=== PATIENT | female | born 1935 | race Caucasian/White ===

== ENCOUNTER 2023-07-03 12:50 | Emergency (ER) | payer OTHER, SELFPAY ==
[2023-07-03] VITALS (7 sets, daily range): BP systolic 152–203; BP diastolic 74–107
[2023-07-03] MEDS: ADACEL 0.5 ML IM (13:26)
--- NOTE | 2023-07-03 13:41 | ED.GENMED ---
History of Present Illness
<Krishna Lawrence MD - Last Filed: 07/04/23 15:09>
General
Chief Complaint: Fall
Source: patient
Exam Limitations: none
Time Seen by Provider: 07/03/23 13:10
Nursing documentation reviewed up to this point in time: agreed with
Travel History
Have you had any contact with someone who has COVID-19?: No
Do you have any symptoms of coronavirus? Fever > 100 degrees, chills, cough, shortness of breath, sore throat, loss of taste or smell, muscle aches, or headache?: No
History of Present Illness
History of Present Illness:
Patient with history of atrial fibrillation on Eliquis, presents to ED after falling backwards in her garden this morning, hitting her head against couple of rocks. Denies loss of consciousness. Denies dizziness. Denies nausea or vomiting.
Denies loss of sensation or weakness. Denies difficulty with speech or swallowing. Denies chest pain. Denies back pain, but she is complaining of right shoulder pain after the fall. Denies difficulty with walking.
Past History
<Krishna Lawrence MD - Last Filed: 07/04/23 15:09>
Past History
ED Past Medical History: Arrthythmia (atrial fibrillation), Fibromyalgia, GERD, HTN, Hypercholesterolemia, Hypothyroidism, Psychiatric (major depression), Other (essential thrombocytosis, GI bleed, irritable bowel disease, neuropathy, Anemia,
Migraines, Essential tremors, Dizziness, ) and Other (spinal stenosis, left wrist fracture,)
ED Past Surgical History: Cholecystectomy (2016), Gynecological (bilateral tubal ligation, hysterectomy, ), Orthopedic (ankle surgery following fracture and 2016), Urological (bladder lift 2007) and Other (bilateral cataract extractions, cyst
removed from finger 2015)
Social History
Tobacco: Former smoker
Alcohol: None
Drug: None
Personal:
Living: alone
Employment: Retired
Family History
Family History: Other (reviewed and Noncontributory)
Review of Systems
<Krishna Lawrence MD - Last Filed: 07/04/23 15:09>
Review of Systems
Allergies reviewed?: Yes
All Other Systems: ROS reviewed and negative except as documented in HPI and ROS
Constitutional: Reports no symptoms
Respiratory: Denies trouble breathing
Cardiac: Denies chest pain
ABD/GI: Denies nausea or vomiting
Musculoskeletal: Reports no symptoms; Denies neck pain
Skin: Reports other (scalp laceration)
Neurological: Reports headache; Denies dizzy, weakness or numbness
Phy Exam
<Krishna Lawrence MD - Last Filed: 07/04/23 15:09>
Physical Exam
Physical Exam:
Physical Exam
General: mild distress, not acutely ill. afebrile.
Head: an approx 5cm stellate shaped laceration over right scalp, without active bleeding.
Neck: supple. no meningeal signs.
Heart: s1/s2 regular rate and rhythm, no murmur. equal radial pulses.
Lungs: no acute respiratory distress. clear bilaterally
Abdomen: normal bowel sounds. not tender.
Neuro: alert and oriented. no focal neurological deficits
Skin: no rash
Psychiatric: well kept. interactive and cooperative
Extremities: mild right shoulder tenderness to palpation without deformity.
Course
<Krishna Lawrence MD - Last Filed: 07/04/23 15:09>
Orders/Labs/Results
Orders:
Orders
07/03/23 13:17
CT Head W/o Iv Contrast Urgent
Comment:
Reason For Exam: trauma to right side of head
Tetanus/Diphth/Acelpertussis [Adacel] 0.5 ml IM .ONCE ONE
07/03/23 13:51
Trauma Shoulder, Right CR [CR Shoulder, Trauma - Right] Urgent
Comment:
Reason For Exam: trauma
07/03/23 17:57
Metoprolol [Lopressor] 25 mg PO NOW STA
07/03/23 19:00
CT Head W/o Iv Contrast Urgent
Comment:
Reason For Exam: trauma
Vital Signs
Initial and Last Documented VS:
Initial Vital Signs
Temp Pulse Resp BP Pulse Ox
97.7 F 71 18 152/83 97
07/03/23 12:52 07/03/23 12:52 07/03/23 12:52 07/03/23 12:52 07/03/23 12:52
Last Documented Vital Signs
Temp Pulse Resp BP Pulse Ox
98.0 F 75 18 178/74 96
07/03/23 21:11 07/03/23 21:11 07/03/23 12:52 07/03/23 20:33 07/03/23 21:11
<Delmy Hutchinson PA-C - Last Filed: 07/05/23 18:08>
Orders/Labs/Results
Orders:
Orders
07/03/23 13:17
CT Head W/o Iv Contrast Urgent
Comment:
Reason For Exam: trauma to right side of head
Tetanus/Diphth/Acelpertussis [Adacel] 0.5 ml IM .ONCE ONE
07/03/23 13:51
Trauma Shoulder, Right CR [CR Shoulder, Trauma - Right] Urgent
Comment:
Reason For Exam: trauma
07/03/23 17:57
Metoprolol [Lopressor] 25 mg PO NOW STA
07/03/23 19:00
CT Head W/o Iv Contrast Urgent
Comment:
Reason For Exam: trauma
Vital Signs
Initial and Last Documented VS:
Initial Vital Signs
Temp Pulse Resp BP Pulse Ox
97.7 F 71 18 152/83 97
07/03/23 12:52 07/03/23 12:52 07/03/23 12:52 07/03/23 12:52 07/03/23 12:52
Last Documented Vital Signs
Temp Pulse Resp BP Pulse Ox
98.0 F 75 18 178/74 96
07/03/23 21:11 07/03/23 21:11 07/03/23 12:52 07/03/23 20:33 07/03/23 21:11
<Yvon Lorenz DO - Last Filed: 07/03/23 20:26>
Orders/Labs/Results
Orders:
Orders
07/03/23 13:17
CT Head W/o Iv Contrast Urgent
Comment:
Reason For Exam: trauma to right side of head
Tetanus/Diphth/Acelpertussis [Adacel] 0.5 ml IM .ONCE ONE
07/03/23 13:51
Trauma Shoulder, Right CR [CR Shoulder, Trauma - Right] Urgent
Comment:
Reason For Exam: trauma
07/03/23 17:57
Metoprolol [Lopressor] 25 mg PO NOW STA
07/03/23 19:00
CT Head W/o Iv Contrast Urgent
Comment:
Reason For Exam: trauma
Vital Signs
Initial and Last Documented VS:
Initial Vital Signs
Temp Pulse Resp BP Pulse Ox
97.7 F 71 18 152/83 97
07/03/23 12:52 07/03/23 12:52 07/03/23 12:52 07/03/23 12:52 07/03/23 12:52
Last Documented Vital Signs
Temp Pulse Resp BP Pulse Ox
98.0 F 75 18 178/74 96
07/03/23 21:11 07/03/23 21:11 07/03/23 12:52 07/03/23 20:33 07/03/23 21:11
<Delmy Hutchinson PA-C - Last Filed: 07/05/23 18:08>
Laceration Closure
Posterior Scalp:
Status of Wound: clean
Description of Wound Edges: sharp
Preparation: cleaned with saline and cleaned with Betadine
Anesthesia: 1% Lidocaine with epi and added Na Bicarb to local
Revision/Debridement: routine- no revision
Wound exploration: explored to base- no FB
Type of Closure: interrupted sutures
Skin Closure Material: 5-0 prolene
Number of sutures: 5
<Krishna Lawrence MD - Last Filed: 07/04/23 15:09>
*Critical Care Note
Total Time (30-74mins, 75-104mins- exclusive of procedures): Not Applicable
<Yvon Lorenz DO - Last Filed: 07/03/23 20:26>
Update Note
Update Note:
Repeat CT is unremarkable. Patient doing well. Patient had scalp repaired.
ED Attending Note
<Krishna Lawrence MD - Last Filed: 07/04/23 15:09>
-
Portions of this chart may have been created with voice recognition software.� Occasional wrong word or��sound alike� substitutions may have occurred due to the inherent limitations of voice recognition software.
Discharge Plan
Departure
Patient Disposition: Home (Routine Discharge)
Date of Disposition: 07/03/23
Time of Disposition: 20:24
Patient with high blood pressure during this ER visit?: Yes
Condition: Good
Covid-19: Not Applicable
Discharge Problem:
Laceration of scalp, Head injury, acute
Instructions: Head Injury in Adults (DC), Laceration Repair With Stitches (DC), Preventing falls in adults, BLOOD PRESSURE
Prescriptions:
No Action
cholecalciferol (vitamin D3) 1,000 UNITS tablet
1,000 units PO DAILY
cyanocobalamin (vitamin B-12) 500 MCG tablet, sublingual
500 mcg sublingual .TUESTHURS
hydroxyurea 500 MG capsule
1,000 mg PO DAILY
levothyroxine 75 MCG tablet
75 mcg PO DAILY
duloxetine 30 MG capsule,delayed release(DR/EC)
30 mg PO DAILY
metoprolol succinate [Toprol XL] 25 MG tablet extended release 24 hr
25 mg PO HS
lisinopril 20 MG tablet
20 mg PO DAILY Qty: 30 0RF
amlodipine 2.5 mg Tablet
2.5 mg PO DAILY
Referrals:
Abel Brian MD [Family Provider] - Follow up in 5-7 days
Activity Restrictions/Additional Instructions:
Keep area clean with soap and water. You may bathe and shower. Continue present medications and make sure to follow-up with your family physician both to have the sutures removed and to have your blood pressure rechecked. Continue present
medications and therapy.
Interventions
Interventions:
*Risk Screen - Suicide Last Done: 07/03/23 13:43
*General Assessment Last Done: 07/03/23 12:52
*Neglect/Abuse Screening Last Done: 07/03/23 13:43
*ED COVID-19 Vaccine History Last Done: 07/03/23 12:52
*Nursing Disposition Last Done: 07/03/23 21:11
ED-Musculoskeletal Assessment Last Done: 07/03/23 13:37
ED- Neurological Assessment Last Done: 07/03/23 13:37
ED-Skin Assessment Last Done: 07/03/23 13:37
Discharge Date and Time
Discharge Date/Time: 07/03/23 21:14
--- NOTE | 2023-07-03 15:42 | EDRN ---
Wound cleansed and sutures applied by Evangelina MOYER.
[2023-07-03] MEDS: LOPRESSOR 25 MG PO (18:10)
== END 2023-07-03 21:14 | disposition home or self-care (01) ==
LOC: EMR 12:50
PROVIDERS: EMERGENCY PHYSICIAN Emergency Medicine; FAMILY PHYSICIAN Internal Medicine Geriatric Medicine
DX: S01.01XA Laceration without foreign body of scalp, initial encounter (principal); S09.90XA Unspecified injury of head, initial encounter; W19.XXXA Unspecified fall, initial encounter; Z23 Encounter for immunization; I48.91 Unspecified atrial fibrillation; M79.7 Fibromyalgia; K21.9 Gastro-esophageal reflux disease without esophagitis; I10 Essential (primary) hypertension; E78.00 Pure hypercholesterolemia, unspecified; E03.9 Hypothyroidism, unspecified; G25.0 Essential tremor; K58.9 Irritable bowel syndrome, unspecified; Z79.01 Long term (current) use of anticoagulants; Z87.891 Personal history of nicotine dependence; Z90.49 Acquired absence of other specified parts of digestive tract; Z90.710 Acquired absence of both cervix and uterus
CPT/HCPCS: 99284; 90471; 70450; 73030; 90715

== ENCOUNTER → 2023-07-21 13:12 | Outpatient (REF) | payer OTHER, SELFPAY ==
[2023-07-21 13:45] LABS: % Basophils 1.9 % (0-2); % Eosinophils 0.8 % (0-6); % Immature Granulocytes 8.9 % (0-0.5); % Lymphocytes 10.6 % (20.5-51.1); % Neutrophils 69.8 % (42.2-75.2); Absolute Basophils 0.2 10^3/uL (0-0.2); Absolute Eosinophils 0.1 10^3/uL (0-0.7); Absolute Immature Granulocytes 0.9 10^3/uL (0-0.05); Absolute Monocytes 0.8 10^3/uL (0.1-0.6); Absolute Neutrophils 6.7 10^3/uL (1.4-6.5); Hematocrit 34.2 % (37.0-47.0); Hemoglobin 10.6 g/dL (12.0-16.0); Mean Corpuscular Hgb 34.3 pg (27.0-31.0); Mean Corpuscular Volume 110.7 fL (81.0-99.0); Mean Platelet Volume 9.8 fL (7.4-10.4); Platelet Count 508 10^3/uL (130-400); Red Blood Cell Count 3.09 10^6/uL (4.20-5.40); Red Cell Dist. Width 17.7 % (11.5-14.5); White Blood Cell Count 9.6 10^3/uL (4.8-10.8)
[2023-07-21 15:14] LABS: Iron 82 ug/dl (37-170)
[2023-07-21 15:24] LABS: Percent Saturation 26 % (20-50); Total Iron Binding Capacity 304 ug/dl (265-497)
== END ==
LOC: OIDL 13:12
PROVIDERS: ATTENDING PHYSICIAN Internal Medicine Hematology & Oncology; FAMILY PHYSICIAN Internal Medicine Geriatric Medicine
DX: D47.3 Essential (hemorrhagic) thrombocythemia (principal); D64.81 Anemia due to antineoplastic chemotherapy
CPT/HCPCS: 36415; 82728; 83540; 83550; 85025

== ENCOUNTER → 2023-08-18 13:04 | Outpatient (REF) | payer OTHER, SELFPAY ==
[2023-08-18 13:27] LABS: % Eosinophils 0.9 % (0-6); % Immature Granulocytes 10.7 % (0-0.5); % Lymphocytes 11.2 % (20.5-51.1); % Monocytes 5.9 % (1.7-9.3); % Neutrophils 69.3 % (42.2-75.2); Absolute Basophils 0.2 10^3/uL (0-0.2); Absolute Eosinophils 0.1 10^3/uL (0-0.7); Absolute Immature Granulocytes 1.2 10^3/uL (0-0.05); Absolute Lymphocytes 1.3 10^3/uL (1.2-3.4); Absolute Monocytes 0.7 10^3/uL (0.1-0.6); Absolute Neutrophils 7.8 10^3/uL (1.4-6.5); Hematocrit 32.7 % (37.0-47.0); Hemoglobin 10.2 g/dL (12.0-16.0); Mean Corp Hgb Conc. 31.2 g/dL (33.0-37.0); Mean Corpuscular Hgb 34.3 pg (27.0-31.0); Mean Corpuscular Volume 110.1 fL (81.0-99.0); Mean Platelet Volume 9.9 fL (7.4-10.4); Platelet Count 555 10^3/uL (130-400); Red Blood Cell Count 2.97 10^6/uL (4.20-5.40); Red Cell Dist. Width 16.9 % (11.5-14.5); White Blood Cell Count 11.3 10^3/uL (4.8-10.8)
== END ==
LOC: OIDL 13:04
PROVIDERS: ATTENDING PHYSICIAN Internal Medicine Hematology & Oncology; FAMILY PHYSICIAN Internal Medicine Geriatric Medicine
DX: D47.3 Essential (hemorrhagic) thrombocythemia (principal)
CPT/HCPCS: 36415; 85025

== ENCOUNTER → 2023-09-06 14:21 | Outpatient (REF) | payer OTHER, SELFPAY | LOC: WDC 14:21 | PROVIDERS: ATTENDING PHYSICIAN Internal Medicine Geriatric Medicine | DX: Z12.31 Encounter for screening mammogram for malignant neoplasm of breast (principal) | CPT/HCPCS: 77063; 77067 ==

== ENCOUNTER → 2023-09-15 13:01 | Outpatient (REF) | payer OTHER, SELFPAY ==
[2023-09-15 13:18] LABS: % Basophils 1.7 % (0-2); % Eosinophils 0.9 % (0-6); % Immature Granulocytes 9.6 % (0-0.5); % Lymphocytes 10.5 % (20.5-51.1); % Monocytes 5.6 % (1.7-9.3); % Neutrophils 71.7 % (42.2-75.2); Absolute Basophils 0.2 10^3/uL (0-0.2); Absolute Eosinophils 0.1 10^3/uL (0-0.7); Absolute Lymphocytes 1.1 10^3/uL (1.2-3.4); Absolute Monocytes 0.6 10^3/uL (0.1-0.6); Absolute Neutrophils 7.3 10^3/uL (1.4-6.5); Hematocrit 32.4 % (37.0-47.0); Hemoglobin 10.2 g/dL (12.0-16.0); Mean Corp Hgb Conc. 31.5 g/dL (33.0-37.0); Mean Platelet Volume 9.8 fL (7.4-10.4); Platelet Count 456 10^3/uL (130-400); Red Cell Dist. Width 17.5 % (11.5-14.5); White Blood Cell Count 10.1 10^3/uL (4.8-10.8)
== END ==
LOC: OIDL 13:01
PROVIDERS: ATTENDING PHYSICIAN Internal Medicine Hematology & Oncology
DX: D47.3 Essential (hemorrhagic) thrombocythemia (principal)
CPT/HCPCS: 36415; 85025

== ENCOUNTER → 2023-09-16 12:37 | Emergency (ER) | payer OTHER, SELFPAY ==
[2023-09-16 12:48] VITALS: BP 189/73
== END | disposition left against medical advice (07) ==
LOC: EMR 12:37
PROVIDERS: EMERGENCY PHYSICIAN Student in an Organized Health Care Education/Training Program
DX: S09.93XA Unspecified injury of face, initial encounter (principal); W01.0XXA Fall on same level from slipping, tripping and stumbling without subsequent striking against object, initial encounter
CPT/HCPCS: 70450; 72125

== ENCOUNTER → 2023-09-28 11:03 | Outpatient (REF) | payer OTHER, SELFPAY ==
[2023-09-28 13:01] LABS: Blood Urea Nitrogen 16 mg/dl (7-17)
== END ==
LOC: RAD 11:03
PROVIDERS: ATTENDING PHYSICIAN Nurse Practitioner Family
DX: R91.1 Solitary pulmonary nodule (principal)
CPT/HCPCS: 36415; 71260; 82565; 84520; Q9967

== ENCOUNTER → 2023-10-13 13:12 | Outpatient (REF) | payer OTHER, SELFPAY ==
[2023-10-13 13:20] LABS: % Basophils 1.5 % (0-2); % Eosinophils 0.7 % (0-6); % Immature Granulocytes 9.6 % (0-0.5); % Lymphocytes 9.8 % (20.5-51.1); % Neutrophils 70.4 % (42.2-75.2); Absolute Basophils 0.2 10^3/uL (0-0.2); Absolute Eosinophils 0.1 10^3/uL (0-0.7); Absolute Immature Granulocytes 1.1 10^3/uL (0-0.05); Absolute Lymphocytes 1.1 10^3/uL (1.2-3.4); Absolute Monocytes 0.9 10^3/uL (0.1-0.6); Absolute Neutrophils 8.2 10^3/uL (1.4-6.5); Hematocrit 32.5 % (37.0-47.0); Hemoglobin 10.2 g/dL (12.0-16.0); Mean Corp Hgb Conc. 31.4 g/dL (33.0-37.0); Mean Corpuscular Hgb 33.6 pg (27.0-31.0); Mean Corpuscular Volume 106.9 fL (81.0-99.0); Mean Platelet Volume 9.7 fL (7.4-10.4); Platelet Count 553 10^3/uL (130-400); Red Blood Cell Count 3.04 10^6/uL (4.20-5.40); Red Cell Dist. Width 17.1 % (11.5-14.5); White Blood Cell Count 11.7 10^3/uL (4.8-10.8)
== END ==
LOC: OIDL 13:12
PROVIDERS: ATTENDING PHYSICIAN Internal Medicine Hematology & Oncology
DX: D47.3 Essential (hemorrhagic) thrombocythemia (principal)
CPT/HCPCS: 36415; 85025

== ENCOUNTER → 2023-11-17 12:57 | Outpatient (REF) | payer OTHER, SELFPAY ==
[2023-11-17 13:10] LABS: % Basophils 1.5 % (0-2); % Eosinophils 0.8 % (0-6); % Immature Granulocytes 10.6 % (0-0.5); % Lymphocytes 9.6 % (20.5-51.1); % Monocytes 7.4 % (1.7-9.3); % Neutrophils 70.1 % (42.2-75.2); Absolute Basophils 0.2 10^3/uL (0-0.2); Absolute Eosinophils 0.1 10^3/uL (0-0.7); Absolute Immature Granulocytes 1.1 10^3/uL (0-0.05); Absolute Monocytes 0.8 10^3/uL (0.1-0.6); Absolute Neutrophils 7.4 10^3/uL (1.4-6.5); Hematocrit 33.6 % (37.0-47.0); Hemoglobin 10.3 g/dL (12.0-16.0); Mean Corp Hgb Conc. 30.7 g/dL (33.0-37.0); Mean Corpuscular Hgb 32.3 pg (27.0-31.0); Mean Corpuscular Volume 105.3 fL (81.0-99.0); Mean Platelet Volume 9.9 fL (7.4-10.4); Platelet Count 474 10^3/uL (130-400); Red Blood Cell Count 3.19 10^6/uL (4.20-5.40); Red Cell Dist. Width 17.8 % (11.5-14.5); White Blood Cell Count 10.6 10^3/uL (4.8-10.8)
== END ==
LOC: OIDL 12:57
PROVIDERS: ATTENDING PHYSICIAN Internal Medicine Hematology & Oncology
DX: D47.3 Essential (hemorrhagic) thrombocythemia (principal)
CPT/HCPCS: 36415; 85025

== ENCOUNTER → 2023-12-15 12:52 | Outpatient (REF) | payer OTHER, SELFPAY ==
[2023-12-15 13:06] LABS: % Basophils 1.8 % (0-2); % Eosinophils 0.7 % (0-6); % Immature Granulocytes 10.9 % (0-0.5); % Lymphocytes 7.6 % (20.5-51.1); % Monocytes 6.6 % (1.7-9.3); % Neutrophils 72.4 % (42.2-75.2); Absolute Basophils 0.2 10^3/uL (0-0.2); Absolute Eosinophils 0.1 10^3/uL (0-0.7); Absolute Immature Granulocytes 1.2 10^3/uL (0-0.05); Absolute Lymphocytes 0.9 10^3/uL (1.2-3.4); Absolute Monocytes 0.7 10^3/uL (0.1-0.6); Absolute Neutrophils 8.1 10^3/uL (1.4-6.5); Hematocrit 31.3 % (37.0-47.0); Hemoglobin 9.7 g/dL (12.0-16.0); Mean Corpuscular Hgb 32.8 pg (27.0-31.0); Mean Corpuscular Volume 105.7 fL (81.0-99.0); Mean Platelet Volume 9.8 fL (7.4-10.4); Platelet Count 488 10^3/uL (130-400); Red Blood Cell Count 2.96 10^6/uL (4.20-5.40); Red Cell Dist. Width 18.5 % (11.5-14.5); White Blood Cell Count 11.1 10^3/uL (4.8-10.8)
== END ==
LOC: OIDL 12:52
PROVIDERS: ATTENDING PHYSICIAN Internal Medicine Hematology & Oncology; FAMILY PHYSICIAN Internal Medicine Geriatric Medicine
DX: D47.3 Essential (hemorrhagic) thrombocythemia (principal)
CPT/HCPCS: 36415; 85025

== ENCOUNTER → 2024-01-12 12:53 | Outpatient (REF) | payer OTHER, SELFPAY ==
[2024-01-12 13:17] LABS: % Basophils 1.5 % (0-2); % Eosinophils 0.6 % (0-6); % Immature Granulocytes 10.2 % (0-0.5); % Lymphocytes 11.1 % (20.5-51.1); % Monocytes 5.4 % (1.7-9.3); % Neutrophils 71.2 % (42.2-75.2); Absolute Basophils 0.1 10^3/uL (0-0.2); Absolute Eosinophils 0.1 10^3/uL (0-0.7); Absolute Lymphocytes 1.1 10^3/uL (1.2-3.4); Absolute Monocytes 0.5 10^3/uL (0.1-0.6); Absolute Neutrophils 6.8 10^3/uL (1.4-6.5); Hematocrit 30.6 % (37.0-47.0); Hemoglobin 9.5 g/dL (12.0-16.0); Mean Corpuscular Hgb 32.9 pg (27.0-31.0); Mean Corpuscular Volume 105.9 fL (81.0-99.0); Platelet Count 495 10^3/uL (130-400); Red Blood Cell Count 2.89 10^6/uL (4.20-5.40); Red Cell Dist. Width 18.4 % (11.5-14.5); White Blood Cell Count 9.5 10^3/uL (4.8-10.8)
== END ==
LOC: OIDL 12:53
PROVIDERS: ATTENDING PHYSICIAN Internal Medicine Hematology & Oncology; FAMILY PHYSICIAN Internal Medicine Geriatric Medicine
DX: D47.3 Essential (hemorrhagic) thrombocythemia (principal)
CPT/HCPCS: 36415; 85025

== ENCOUNTER → 2024-02-09 13:12 | Outpatient (REF) | payer OTHER, SELFPAY ==
[2024-02-09 13:25] LABS: % Basophils 1.9 % (0-2); % Eosinophils 0.7 % (0-6); % Immature Granulocytes 10.2 % (0-0.5); % Lymphocytes 9.7 % (20.5-51.1); % Monocytes 7.5 % (1.7-9.3); Absolute Basophils 0.2 10^3/uL (0-0.2); Absolute Eosinophils 0.1 10^3/uL (0-0.7); Absolute Immature Granulocytes 1.1 10^3/uL (0-0.05); Absolute Monocytes 0.8 10^3/uL (0.1-0.6); Absolute Neutrophils 7.5 10^3/uL (1.4-6.5); Hematocrit 29.7 % (37.0-47.0); Hemoglobin 9.2 g/dL (12.0-16.0); Mean Corpuscular Hgb 32.7 pg (27.0-31.0); Mean Corpuscular Volume 105.7 fL (81.0-99.0); Platelet Count 531 10^3/uL (130-400); Red Blood Cell Count 2.81 10^6/uL (4.20-5.40); Red Cell Dist. Width 18.4 % (11.5-14.5); White Blood Cell Count 10.7 10^3/uL (4.8-10.8)
== END ==
LOC: OIDL 13:12
PROVIDERS: ATTENDING PHYSICIAN Internal Medicine Hematology & Oncology; PRIMARYCARE PHYSICIAN Internal Medicine Geriatric Medicine
DX: D47.3 Essential (hemorrhagic) thrombocythemia (principal)
CPT/HCPCS: 36415; 85025

== ENCOUNTER → 2024-02-14 13:01 | Outpatient (REF) | payer OTHER, SELFPAY ==
[2024-02-14 13:20] LABS: % Basophils 1.7 % (0-2); % Eosinophils 0.6 % (0-6); % Immature Granulocytes 10.9 % (0-0.5); % Lymphocytes 7.5 % (20.5-51.1); % Monocytes 7.4 % (1.7-9.3); % Neutrophils 71.9 % (42.2-75.2); Absolute Basophils 0.2 10^3/uL (0-0.2); Absolute Eosinophils 0.1 10^3/uL (0-0.7); Absolute Immature Granulocytes 1.1 10^3/uL (0-0.05); Absolute Lymphocytes 0.8 10^3/uL (1.2-3.4); Absolute Monocytes 0.8 10^3/uL (0.1-0.6); Absolute Neutrophils 7.4 10^3/uL (1.4-6.5); Hematocrit 29.5 % (37.0-47.0); Mean Corp Hgb Conc. 30.5 g/dL (33.0-37.0); Mean Corpuscular Hgb 32.1 pg (27.0-31.0); Mean Corpuscular Volume 105.4 fL (81.0-99.0); Mean Platelet Volume 9.6 fL (7.4-10.4); Platelet Count 524 10^3/uL (130-400); Red Cell Dist. Width 18.4 % (11.5-14.5); White Blood Cell Count 10.3 10^3/uL (4.8-10.8)
[2024-02-14 16:43] LABS: Iron 57 ug/dl (37-170)
[2024-02-14 16:52] LABS: Percent Saturation 17 % (20-50); Total Iron Binding Capacity 329 ug/dl (265-497)
[2024-02-14 17:17] LABS: Ferritin 72.1 ng/ml (11.1-264.0)
== END ==
LOC: OIDL 13:01
PROVIDERS: ATTENDING PHYSICIAN Internal Medicine Hematology & Oncology
DX: D47.3 Essential (hemorrhagic) thrombocythemia (principal); D64.81 Anemia due to antineoplastic chemotherapy; D50.9 Iron deficiency anemia, unspecified
CPT/HCPCS: 36415; 82728; 83540; 83550; 85025

== ENCOUNTER → 2024-03-08 13:09 | Outpatient (REF) | payer OTHER, SELFPAY ==
[2024-03-08 13:45] LABS: % Basophils 1.9 % (0-2); % Eosinophils 0.7 % (0-6); % Immature Granulocytes 11.5 % (0-0.5); % Lymphocytes 8.7 % (20.5-51.1); % Monocytes 7.4 % (1.7-9.3); % Neutrophils 69.8 % (42.2-75.2); Absolute Basophils 0.2 10^3/uL (0-0.2); Absolute Eosinophils 0.1 10^3/uL (0-0.7); Absolute Immature Granulocytes 1.4 10^3/uL (0-0.05); Absolute Monocytes 0.9 10^3/uL (0.1-0.6); Absolute Neutrophils 8.2 10^3/uL (1.4-6.5); Hematocrit 29.4 % (37.0-47.0); Mean Corp Hgb Conc. 30.6 g/dL (33.0-37.0); Mean Corpuscular Hgb 31.8 pg (27.0-31.0); Mean Corpuscular Volume 103.9 fL (81.0-99.0); Mean Platelet Volume 10.1 fL (7.4-10.4); Platelet Count 584 10^3/uL (130-400); Red Blood Cell Count 2.83 10^6/uL (4.20-5.40); Red Cell Dist. Width 18.5 % (11.5-14.5); White Blood Cell Count 11.8 10^3/uL (4.8-10.8)
[2024-03-08 15:30] LABS: Iron 53 ug/dl (37-170)
[2024-03-08 15:42] LABS: Percent Saturation 15 % (20-50); Total Iron Binding Capacity 338 ug/dl (265-497)
[2024-03-08 16:07] LABS: Ferritin 50.5 ng/ml (11.1-264.0)
== END ==
LOC: OIDL 13:09
PROVIDERS: ATTENDING PHYSICIAN Internal Medicine Hematology & Oncology
DX: D47.3 Essential (hemorrhagic) thrombocythemia (principal)
CPT/HCPCS: 36415; 82728; 83540; 83550; 85025

== ENCOUNTER → 2024-04-05 13:00 | Outpatient (REF) | payer OTHER, SELFPAY ==
[2024-04-05 13:19] LABS: % Basophils 1.6 % (0-2); % Eosinophils 0.6 % (0-6); % Immature Granulocytes 10.5 % (0-0.5); % Lymphocytes 9.5 % (20.5-51.1); % Monocytes 7.1 % (1.7-9.3); % Neutrophils 70.7 % (42.2-75.2); Absolute Basophils 0.2 10^3/uL (0-0.2); Absolute Eosinophils 0.1 10^3/uL (0-0.7); Absolute Immature Granulocytes 1.3 10^3/uL (0-0.05); Absolute Lymphocytes 1.2 10^3/uL (1.2-3.4); Absolute Monocytes 0.9 10^3/uL (0.1-0.6); Hematocrit 27.2 % (37.0-47.0); Hemoglobin 8.4 g/dL (12.0-16.0); Mean Corp Hgb Conc. 30.9 g/dL (33.0-37.0); Mean Corpuscular Hgb 31.7 pg (27.0-31.0); Mean Corpuscular Volume 102.6 fL (81.0-99.0); Mean Platelet Volume 9.7 fL (7.4-10.4); Platelet Count 505 10^3/uL (130-400); Red Blood Cell Count 2.65 10^6/uL (4.20-5.40); Red Cell Dist. Width 18.4 % (11.5-14.5); White Blood Cell Count 12.7 10^3/uL (4.8-10.8)
== END ==
LOC: OIDL 13:00
PROVIDERS: ATTENDING PHYSICIAN Internal Medicine Hematology & Oncology
DX: D47.3 Essential (hemorrhagic) thrombocythemia (principal)
CPT/HCPCS: 36415; 85025

== ENCOUNTER → 2024-05-03 12:38 | Outpatient (REF) | payer OTHER, SELFPAY ==
[2024-05-03 13:46] LABS: Hematocrit 28.1 % (37.0-47.0); Hemoglobin 8.4 g/dL (12.0-16.0); Mean Corp Hgb Conc. 29.9 g/dL (33.0-37.0); Mean Corpuscular Hgb 30.7 pg (27.0-31.0); Mean Corpuscular Volume 102.6 fL (81.0-99.0); Platelet Count 584 10^3/uL (130-400); Red Blood Cell Count 2.74 10^6/uL (4.20-5.40); Red Cell Dist. Width 18.9 % (11.5-14.5); White Blood Cell Count 12.2 10^3/uL (4.8-10.8)
[2024-05-03 15:20] LABS: Absolute Neutrophils -Man Diff 9.3 10^3/uL (1.4-6.5); Band Neutrophils 2 % (0-3); Eosinophils 1 % (0-6); Lymphocytes 5 % (20-51); Metamyelocytes 4 % (-); Monocytes 8 % (2-9); Myelocytes 5 % (-); Segmented Neutrophils 75 % (42-75)
[2024-05-03 15:21] LABS: Anisocytosis 1+; Normal RBC Morphology No; Platelets Checked Yes; Polychromasia Slight; Total Cells Counted 100
== END ==
LOC: OIDL 12:38
PROVIDERS: ATTENDING PHYSICIAN Internal Medicine Hematology & Oncology
DX: D47.3 Essential (hemorrhagic) thrombocythemia (principal)
CPT/HCPCS: 36415; 85025

== ENCOUNTER → 2024-05-31 13:01 | Outpatient (REF) | payer OTHER, SELFPAY ==
[2024-05-31 13:34] LABS: % Basophils 1.7 % (0-2); % Eosinophils 0.6 % (0-6); % Immature Granulocytes 7.2 % (0-0.5); % Lymphocytes 11.7 % (20.5-51.1); % Monocytes 5.3 % (1.7-9.3); % Neutrophils 73.5 % (42.2-75.2); Absolute Basophils 0.2 10^3/uL (0-0.2); Absolute Eosinophils 0.1 10^3/uL (0-0.7); Absolute Immature Granulocytes 0.7 10^3/uL (0-0.05); Absolute Lymphocytes 1.1 10^3/uL (1.2-3.4); Absolute Monocytes 0.5 10^3/uL (0.1-0.6); Absolute Neutrophils 6.8 10^3/uL (1.4-6.5); Hematocrit 27.9 % (37.0-47.0); Hemoglobin 8.4 g/dL (12.0-16.0); Mean Corp Hgb Conc. 30.1 g/dL (33.0-37.0); Mean Corpuscular Hgb 30.3 pg (27.0-31.0); Mean Corpuscular Volume 100.7 fL (81.0-99.0); Mean Platelet Volume 11.3 fL (7.4-10.4); Platelet Count 362 10^3/uL (130-400); Red Blood Cell Count 2.77 10^6/uL (4.20-5.40); Red Cell Dist. Width 18.7 % (11.5-14.5); White Blood Cell Count 9.3 10^3/uL (4.8-10.8)
== END ==
LOC: OIDL 13:01
PROVIDERS: ATTENDING PHYSICIAN Internal Medicine Hematology & Oncology; FAMILY PHYSICIAN Internal Medicine Geriatric Medicine
DX: D47.3 Essential (hemorrhagic) thrombocythemia (principal)
CPT/HCPCS: 36415; 85025

== ENCOUNTER → 2024-07-06 13:50 | Outpatient (REF) | payer OTHER, SELFPAY ==
[2024-07-06 14:00] LABS: % Basophils 1.6 % (0-2); % Eosinophils 0.6 % (0-6); % Immature Granulocytes 7.8 % (0-0.5); % Lymphocytes 11.2 % (20.5-51.1); % Monocytes 7.2 % (1.7-9.3); % Neutrophils 71.6 % (42.2-75.2); Absolute Basophils 0.2 10^3/uL (0-0.2); Absolute Eosinophils 0.1 10^3/uL (0-0.7); Absolute Immature Granulocytes 0.9 10^3/uL (0-0.05); Absolute Lymphocytes 1.3 10^3/uL (1.2-3.4); Absolute Monocytes 0.8 10^3/uL (0.1-0.6); Absolute Neutrophils 8.4 10^3/uL (1.4-6.5); Hematocrit 27.5 % (37.0-47.0); Hemoglobin 8.2 g/dL (12.0-16.0); Mean Corp Hgb Conc. 29.8 g/dL (33.0-37.0); Mean Corpuscular Volume 100.7 fL (81.0-99.0); Mean Platelet Volume 9.6 fL (7.4-10.4); Platelet Count 588 10^3/uL (130-400); Red Blood Cell Count 2.73 10^6/uL (4.20-5.40); Red Cell Dist. Width 19.6 % (11.5-14.5); White Blood Cell Count 11.7 10^3/uL (4.8-10.8)
[2024-07-06 16:04] LABS: Iron 44 ug/dl (37-170)
[2024-07-06 16:14] LABS: Percent Saturation 11 % (20-50); Total Iron Binding Capacity 378 ug/dl (265-497)
[2024-07-06 16:40] LABS: Ferritin 16.6 ng/ml (11.1-264.0)
== END ==
LOC: OIDL 13:50
PROVIDERS: ATTENDING PHYSICIAN Internal Medicine Hematology & Oncology
DX: D47.3 Essential (hemorrhagic) thrombocythemia (principal)
CPT/HCPCS: 36415; 82728; 83540; 83550; 85025

== ENCOUNTER 2024-08-01 03:58 | Inpatient (IN) | payer OTHER, SELFPAY ==
[2024-08-01] VITALS (19 sets, daily range): BP systolic 127–189; BP diastolic 58–103; PULSE 76; O2SAT 98; BMI 27.3; BMI 26.0
[2024-08-01 00:40] LABS: Hematocrit 25.5 % (37.0-47.0); Hemoglobin 7.8 g/dL (12.0-16.0); Mean Corp Hgb Conc. 30.6 g/dL (33.0-37.0); Mean Corpuscular Hgb 29.8 pg (27.0-31.0); Mean Corpuscular Volume 97.3 fL (81.0-99.0); Mean Platelet Volume 11.4 fL (7.4-10.4); Platelet Count 414 10^3/uL (130-400); Red Blood Cell Count 2.62 10^6/uL (4.20-5.40); Red Cell Dist. Width 19.9 % (11.5-14.5); White Blood Cell Count 7.8 10^3/uL (4.8-10.8)
--- NOTE | 2024-08-01 00:42 | ED.GENMED ---
History of Present Illness
General
Chief Complaint: Chest Pain
Source: patient and ambulance crew
Time Seen by Provider: 08/01/24 00:06
Nursing documentation reviewed up to this point in time: agreed with
History of Present Illness
History of Present Illness:
Pleasant 80-year-old female that presents to the emergency department via ambulance for right jaw and right arm and right breast pain. She states that she has had these pains in the past but they are typically self-limited. She states that they
did not go away so she came to the emergency department. She does report increased shortness of breath. She does have a history of anemia.
Vital signs are stable. Patient not hypoxic
Nursing note reviewed. I agree with nursing documentation up to this point in time.
Home Meds and allergies reviewed.
NUMBER AND COMPLEXITY OF PROBLEMS ADDRESSED AT THE ENCOUNTER
� Chronic conditions affecting care:
� Acute Exacerbation and/or Progression of Chronic Illness:
� Differential Diagnosis includes:
AMOUNT AND/OR COMPLEXITY OF DATA TO BE REVIEWED AND ANALYZED
I performed an independent evaluation of the following and my interpretation is:
EKG: Sinus rhythm rate of 91 with normal intervals, normal axis. There is some more pronounced ST depression in leads V1 to V5 when compared with previous EKG dated July 22, 2022
Pulse Ox: Not Hypoxic
[employer]: Sinus Rhythm
CT:
X-rays:
Ultrasound:
Laboratory Studies: Hemoglobin of 7.8, this is not far off from her baseline. On 07/06/2024 it was 8.2 on 05/31/2024 was 8.4. Patient is closely monitored for her hemoglobin. She states that it is low due to hydroxyurea
administration. Followed by Dr. Liang.
Other:
Review of other/old records:
Clinical information was obtained by an independent historian:
Prescriptions/Medications Considered but not given:
Further testing considered but not performed:
RISK OF COMPLICATIONS AND/OR MORBIDITY OR MORTALITY OF PATIENT MANAGEMENT
Social determinants of health affecting care: Good Social Support
Discussion with other providers:
Escalation of care including admission/observation vs risk of discharge considered: After being observed in the emergency department, patient is
CRITICAL CARE NOTE:
Total Time (exclusive of procedures):
Update:
Past History
Past History
ED Past Medical History: Arrthythmia (atrial fibrillation), Fibromyalgia, GERD, HTN, Hypercholesterolemia, Hypothyroidism, Psychiatric (major depression), Other (essential thrombocytosis, GI bleed, irritable bowel disease, neuropathy, Anemia,
Migraines, Essential tremors, Dizziness, ) and Other (spinal stenosis, left wrist fracture,)
ED Past Surgical History: Cholecystectomy (2015), Gynecological (bilateral tubal ligation, hysterectomy, ), Orthopedic (ankle surgery following fracture and 2016), Urological (bladder lift 2007) and Other (bilateral cataract extractions, cyst
removed from finger 2015)
Social History
Tobacco: Former smoker
Alcohol: None
Drug: None
Personal:
Living: alone
Employment: Retired
Family History
Family History: Other (reviewed and Noncontributory)
Phy Exam
General Physical Exam
General Presentation: well appearing and no apparent distress
General Skin: warm and dry
General Habitus: normal
General Mental: alert
General Hydration: appears well hydrated
ENT Exam
ENT Exam: EOMI, pharynx normal, neck supple and normocephalic
Eye Exam
Eye Exam: PERRL, cornea clear and conjunctiva normal
Cardiovascular Exam
Cardiovascular Exam: regular rate/rhythm, no edema, no murmur and normal peripheral pulses
Pulmonary Exam
Pulmonary Exam: lungs clear, no respiratory distress, no rales, no crackles, no rhonchi, no stridor, no wheezing and no cough
Gastrointestinal Exam
Gastrointestinal Exam: normal bowel sounds, non tender, soft, no organomegaly, no pulsatile mass and non distended
Neurological Exam
Neurological Exam: alert, oriented x3, no motor deficits and speech normal
Musculoskeletal Exam
Musculoskeletal Exam: full ROM and no edema
Skin Exam
Skin Exam: normal color, warm/dry, no rash and no petechia
Psychiatric Exam
Psychiatric Exam: normal mood/affect
Scores
Heart Score for Chest Pain Patients
STEMI patient?: No
History: Highly Suspicious
ECG: Nonspecific Repolarization
Age: >/= 65 years
Risk Factors: 1 or 2 Risk Factors
Troponin: >1 - <3 x Normal Limit
Heart Score for Chest Pain Patients: 7
Heart Score Risk: 72.7 % MACE over next 6 weeks
Course
Orders/Labs/Results
Orders:
Orders
07/31/24 23:55
EKG- Treatment ONCE
Complete Blood Count/With Diff Urgent
08/01/24 00:00
CR Chest - 2 Views Urgent
Reason For Exam: chest pain
08/01/24 00:32
Manual Differential Urgent
08/01/24 00:33
Add On- LAB Urgent
Tests Added?: probnp
08/01/24 01:09
Comprehensive Metabolic Panel Urgent
Procalcitonin Urgent
Troponin I Urgent
08/01/24 02:16
Heparin 4,000 units IV NOW STA
Nursing to Place Non Medication Order As Directed
Physician Order: PTT 6 hours after initial start of Heparin infusion
08/01/24 02:30
Heparin 36891 Units/250 ml 25,000 units in 250 ml IV PER PROTOCOL
Weight to be used for heparin protocol in kilograms (kg):: 72.1
Protocol:: Cardiac Tx/Acute Coronary
PTT Goal Range to be used:: PTT 73 to 111 seconds
Order type:: Initial
INITIAL Infusion Dose (UNITS/KG/hr) & then follow protocol:: 12 units/kg/hr
Infusion Dose in UNITS/hr & then follow protocol (UNITS/hr):: 850
INFUSION RATE in mL/hr & then follow protocol (mL/hr):: 8.5
PTT less than or equal to 64 seconds:: Increase rate by 200 units/hr (+ 2 mL/hr)
PTT 64.1 to 72.9 seconds:: Increase rate by 100 units/hr (+ 1 mL/hr)
PTT 73 to 111 seconds:: Target Range. No change in rate.
PTT 111.1 to 130.9 seconds:: Decrease rate by 100 units/hr (- 1 mL/hr)
PTT 131 to 199.9 seconds:: HOLD for 1 hr. Then decrease rate by 200 units/hr (- 2 mL/hr)
PTT greater than or equal to 200 seconds:: HOLD for 2 hrs & Notify Provider. Then decrease by 200 units/hr (-
2 mL/hr)
Lab follow-up:: Each change, PTT q6h until 2 consecutive are therapeutic. Then PTT
daily.
08/01/24 02:46
PTT Urgent
Comment: Obtain baseline before beginning heparin infusion if not already collected
08/01/24 03:09
Admit/Transfer Patient As Directed
Co-Sign Provider:
Level of Care: Inpatient admission
Assign to:: IVU
Physician / Group: hospitalist
Diagnosis: NSTEMI
Reason for Hospitalization: NSTEMI
Expected length of stay greater than two midnights?: Yes
ELOS- Estimated Length of Stay in days: 2
I certify the patient meets the requirements for IP care: Yes
PRN Pain Medication Management As Directed
May give lesser potent ordered pain med per pt: Yes
preference::
Protocol:: Medication orders for pain may be administered in a
manner that supports deferring to patient preference
when the pt is:
- Requesting an ordered lesser potent pain medication.
Least to most potent pain medications are defined
as: acetaminophen < NSAID < tramadol < opioids
(morphine, oxycodone, hydromorphone).
- Requesting a lesser dose of the same medication IF
ORDERED.
- Requesting a less intrusive route of administration
if both routes are prescribed by the provider (PO <
IV).
08/01/24 03:10
Code Status As Directed
Resuscitation Status: Do not resuscitate
Reached after discussion with pt or family/Healthcare POA: Yes
DNR Bracelet Application ONCE
08/01/24 03:22
Aspirin Chewable [Low Strength Aspirin] 324 mg PO NOW STA
08/01/24 04:00
Flush (0.9% Sodium Chloride) [Flush (Nss)] See Dose Instructions IV PER PROTOCOL
08/01/24 04:35
Electrocardiogram (*1) Q6H
Reason for Study: Chest Pain
Comment: at admission and Q3H for total of 3, to be done with each troponin
Acetaminophen [Tylenol] 650 mg PO Q4HPRN PRN
Mag Hydrox/Al Hydrox/Simeth [Maalox] 30 ml PO Q4HPRN PRN
Nitroglycerin Sublingual [Nitrostat (Sublingual)] 0.4 mg SL [id number] PRN
08/01/24 04:35
Echo 2D MMode Color/Doppler Routine
Reason for Study: chest pain
CARDIOLOGY CONSULT Routine
Consulting Provider: Yvon Mejía
Was physician already notified: Yes
Case Management Consult ONCE
Case Management Consult: Discharge Planning
VTE Contraindication Routine
VTE Mechanical Device Contraindication: Medical Contraindication
Pharmocologic Contraindication: Medical Contraindication
Heparin Protocol- PTT Orders As Directed
PTT per Heparin protocol: -Obtain CBC and baseline PTT - if not already collected.
-Obtain PTT 6 hours from start of infusion. Then, every 6 hours until 2 consecutive
PTT's are therapeutic. Then, PTT Daily.
-With each rate change, obtain PTT every 6 hours until 2 consecutive PTT's are
therapeutic. Then, PTT Daily.
Activity As Directed
Activity Level: With Assistance
INT (Intravenous Needle Therapy) As Directed
Comment: maintain peripheral IV access
Intake/ Output As Directed
Frequency: Per unit guidelines
Notify MD As Directed
Notify physician if: PTT is greater than or equal to 200.
Vital Signs As Directed
Frequency: q4h
Weight As Directed
Frequency: Once
Pulse Ox/spot Check [RESP] Routine
Quantity: 1
Special Instructions: on admission and then every shift if on oxygen
Pt Eval And Treat Routine
Activity Level: With Assistance
08/01/24 05:08
Basic Metabolic Panel IN AM
Cardiovascular Evaluation IN AM
Ferritin IN AM
Folate IN AM
Iron IN AM
Total Iron Binding IN AM
Troponin I Q3H
Comment: at admit & Q3H for 3 total including ED draws, obtain ECG with each level
Vitamin B12 IN AM
08/01/24 05:10
Glycohemoglobin (HgbA1c) IN AM
Reticulocyte Count IN AM
08/01/24 06:00
Type And Crossmatch [Type+Screen] IN AM
NPO
Allow oral meds: Yes
Allow clear liquids: Sips of Clears
NPO with Ice Chips: Yes
Levothyroxine [Synthroid] 75 mcg PO DAILY @ 0600
08/01/24 08:00
Amlodipine [Norvasc] 2.5 mg PO DAILY
Hydroxyurea [Hydrea] 500 mg PO DAILY
Lisinopril [Zestril] 20 mg PO DAILY
Sertraline HCl [Zoloft] 25 mg PO DAILY
08/01/24 09:00
Troponin I Q3H
Comment: at admit & Q3H for 3 total including ED draws, obtain ECG with each level
08/01/24 09:30
PTT Urgent
08/01/24 10:35
Electrocardiogram (*1) Q6H
Reason for Study: Chest Pain
Comment: at admission and Q3H for total of 3, to be done with each troponin
08/01/24 16:35
Electrocardiogram (*1) Q6H
Reason for Study: Chest Pain
Comment: at admission and Q3H for total of 3, to be done with each troponin
08/01/24 22:00
Gabapentin [Neurontin] 300 mg PO HS
Metoprolol Xl [Toprol Xl] 25 mg PO HS
08/03/24 06:00
Complete Blood Count/No Diff Q2D
Comment: notify provider: Platelet count < 130,000 or decrease by 50% from baseline
08/05/24 06:00
Complete Blood Count/No Diff Q2D
Comment: notify provider: Platelet count < 130,000 or decrease by 50% from baseline
08/07/24 06:00
Complete Blood Count/No Diff Q2D
Comment: notify provider: Platelet count < 130,000 or decrease by 50% from baseline
08/09/24 06:00
Complete Blood Count/No Diff Q2D
Comment: notify provider: Platelet count < 130,000 or decrease by 50% from baseline
08/11/24 06:00
Complete Blood Count/No Diff Q2D
Comment: notify provider: Platelet count < 130,000 or decrease by 50% from baseline
08/13/24 06:00
Complete Blood Count/No Diff Q2D
Comment: notify provider: Platelet count < 130,000 or decrease by 50% from baseline
08/15/24 06:00
Complete Blood Count/No Diff Q2D
Comment: notify provider: Platelet count < 130,000 or decrease by 50% from baseline
08/17/24 06:00
Complete Blood Count/No Diff Q2D
Comment: notify provider: Platelet count < 130,000 or decrease by 50% from baseline
Abnormal Lab Results
08/01/24 08/01/24
00:32 01:09
RBC 2.62 L 10^6/uL
(4.20-5.40)
Hgb 7.8 L g/dL
(12.0-16.0)
Hct 25.5 L %
(37.0-47.0)
MCHC 30.6 L g/dL
(33.0-37.0)
RDW 19.9 H %
(11.5-14.5)
Plt Count 414 H 10^3/uL
(130-400)
MPV 11.4 H fL
(7.4-10.4)
Segmented Neutrophils 76 H %
(42-75)
Band Neutrophils 7 H %
(0-3)
Lymphocytes (Manual) 7 L %
(20-51)
Glucose 166 H mg/dl
(70-99)
Troponin I 0.077 H* ng/ml
Total Protein 6.0 L g/dl
(6.3-8.2)
08/01/24 00:32
08/01/24 01:09
Vital Signs
Initial and Last Documented VS:
Initial Vital Signs
Pulse Resp Pulse Ox
93 11 97
07/31/24 23:59 07/31/24 23:59 07/31/24 23:59
Last Documented Vital Signs
Temp Pulse Resp BP Pulse Ox
97.7 F 76 18 161/76 96
08/01/24 04:45 08/01/24 05:30 08/01/24 04:45 08/01/24 04:42 08/01/24 05:30
*Critical Care Note
Total Time (30-74mins, 75-104mins- exclusive of procedures): 30 (Critical care statement: A total of 30 minutes of critical care time was provided for this patient. This time is separate from time utilized to perform the aforementioned documented
procedures. Aggregate critical care time includes only time during which I was engaged in work directl)
Update Note
Update Note:
Patient's troponin is elevated at 0.077.
EKG shows slight worsening ST depressions leads V1 through V5
Patient's chest pain is currently 0
Will start heparin.
Since she takes Eliquis at [facility] 9:15 in the morning and 9:15 night, will start heparin without the bolus.
Spoke with Mj Kovacs texted him EKGs. He is in agreement with this plan.
Hospitalist will admit to the medicine service.
ED Attending Note
-
Portions of this chart may have been created with voice recognition software.� Occasional wrong word or��sound alike� substitutions may have occurred due to the inherent limitations of voice recognition software.
Discharge Plan
Departure
Patient Disposition: Admit
Date of Disposition: 08/01/24
Time of Disposition: 02:27
Admit to: Telemetry
Presentation/result/management discussed w/ accepting MD/DO: Hospitalist
Discharge Problem:
ACS (acute coronary syndrome), Acute non-ST elevation myocardial infarction (NSTEMI)
Interventions
Interventions:
*Risk Screen - Suicide Last Done: 08/01/24 00:06
*General Assessment Last Done: 08/01/24 00:06
*Neglect/Abuse Screening Last Done: 08/01/24 00:06
*ED- Fall Risk Assessment Last Done: 08/01/24 04:45
*ED COVID-19 Vaccine History Last Done: 08/01/24 00:10
*Nursing Disposition Last Done: 08/01/24 04:45
ED- Cardiac Assessment Last Done: 08/01/24 00:41
Discharge Date and Time
Discharge Date/Time: 08/01/24 04:46
[2024-08-01 01:34] LABS: Absolute Neutrophils -Man Diff 6.4 10^3/uL (1.4-6.5); Anisocytosis 1+; Band Neutrophils 7 % (0-3); Eosinophils 1 % (0-6); Lymphocytes 7 % (20-51); Metamyelocytes 4 % (-); Monocytes 4 % (2-9); Myelocytes 1 % (-); Normal RBC Morphology No; Nucleated Red Blood Cells 5 (-); Platelets Checked Yes; Segmented Neutrophils 76 % (42-75)
[2024-08-01 01:35] LABS: Hypochromasia 1+
[2024-08-01 01:36] LABS: Ovalocytes 1+
[2024-08-01 01:37] LABS: Basophilic Stippling 1+; Hypersegmented Neutrophil 1+; Polychromasia 1+
[2024-08-01 01:38] LABS: Total Cells Counted 100
[2024-08-01 01:40] LABS: Tear Drop Red Blood Cells 1+
[2024-08-01 01:41] LABS: Acanthocytes Occasional; Target Cells Occasional
[2024-08-01 01:45] LABS: Schistocytes Occasional; Toxic Granulation Occassional
[2024-08-01 01:57] LABS: ALT (SGPT) 12 U/L (0-35); AST (SGOT) 22 U/L (14-36); Albumin 4.1 g/dl (3.5-5.0); Alkaline Phosphatase 73 U/L (38-126); Blood Urea Nitrogen 14 mg/dl (7-17); Calcium 8.8 mg/dl (8.4-10.2); Carbon Dioxide 24 mmol/L (22-30); Chloride 106 mmol/L (98-107); Estimated Creatinine Clearance 47 ml/min; Glucose 166 mg/dl (70-99); Potassium 4.2 mmol/L (3.5-5.1); Sodium 140 mmol/L (135-145); Total Bilirubin 0.9 mg/dl (0.2-1.3); eGFR > 60.00
[2024-08-01 02:10] LABS: Troponin I 0.077 ng/ml
[2024-08-01 02:19] LABS: Procalcitonin 0.19 ng/ml (0.0-0.25)
--- NOTE | 2024-08-01 03:00 | HPS.HSE ---
Family Physician
-
Family Physician: Abel Brian
Chief Complaint
-
Chest pain
History of Present Illness
This is a 88-year-old female with past medical history significant for proximal atrial fibrillation on anticoagulation with apixaban, hypertension, hypothyroid, essential thrombocytosis presenting to the emergency department with chest pain.
Patient reports that she has been having intermittent episodes of chest pain as well as dyspnea on exertion over the last few weeks. She states lifting groceries, even writing or walking up a flight of stairs that resulted in right-sided chest
discomfort that appears to radiate to her back. She reports this stops after 5 minutes usually. She reports that overnight she started having more persistent right-sided chest pain that did not go away. She felt also that she had right-sided jaw
pain. She reports nausea but no vomiting. She also reports intermittent diaphoresis.
In addition patient reported that she has been feeling weak over the last few weeks. Ability to perform daily activities been diminishing. She reports known anemia and has tried oral iron complicated by constipation and hemorrhoidal bleeding. She
reports that her iron levels the last time was checked a few months ago was normal. She denies any melena or hematochezia.
Patient reports occasional episodes of palpitations in the last few weeks. She denies feeling dizzy or lightheaded.
In the emergency department today she was afebrile, blood pressure was 166/76 with a pulse of 85. ECG shows a normal sinus rhythm at a rate of [address] depressions. Troponin was 0.07. Last echocardiogram was several years ago with
preserved EF of 55 to 60%.
CBC shows a normal white count hemoglobin was 7.8 with platelet count of 414. Electrolytes, BUN/creatinine and glucose were in the normal range.
Medical History
Past Medical History
Past Medical History: Reports Arrhythmia (Proximal atrial fibrillation on anticoagulation with Eliquis), HTN, Hypercholesterolemia, Hypothyroidism and Other (Essential thrombocytosis)
Additional Past Medical History:
Anemia,
History of GI bleed
Past Surgical History: Reports Cholecystectomy and Gynocological (Hysterectomy, tubal ligation)
Social History
Tobacco: Non-smoker
Alcohol: None
Drug: None
Personal:
Living: Alone
Employment: Retired
Family History
Family History: Not pertinent
Allergies / Home Medications
Allergies reflects when Allergies were last updated in [facility].
Home Medications with original date entered in [facility]
Allergy/Medication List:
Allergies
Allergy/AdvReac Type Severity Reaction Status Date / Time
wheat products Allergy Shortness Uncoded 08/01/24 02:37
of Breath
Home Medications
cholecalciferol (vitamin D3) 25 mcg (1,000 unit) tablet 1,000 units PO DAILY Supplement 09/03/14
cyanocobalamin (vitamin B-12) 500 mcg sublingual tablet 1,000 mcg sublingual .MONWEDFRI Supplement 06/13/15
hydroxyurea 500 mg capsule 500 mg PO DAILY THROMBOCYTOSIS 12/01/17
levothyroxine 75 mcg tablet 75 mcg PO DAILY Thyroid 02/14/21
metoprolol succinate 25 mg tablet,extended release 24 hr (Toprol XL) 25 mg PO HS Blood pressure 02/15/21
lisinopril 20 mg tablet 20 mg PO DAILY #30 tabs 02/16/21
amlodipine 2.5 mg tablet 2.5 mg PO DAILY 05/17/22
apixaban 5 mg tablet (Eliquis) 5 mg PO DAILY 08/01/24
gabapentin 300 mg tablet 300 mg PO HS 08/01/24
fpxykiwj-gqf-uuzll acid 0.4 mg-lycopene 300 mcg-lutein 250 mcg tablet (Centrum Silver) 1 tab PO DIRECTED 08/01/24
sertraline 25 mg tablet 25 mg PO DAILY 08/01/24
Review of Systems
-
History Source: Patient
Constitutional: Reports No Symptoms
EENT: Reports No Symptoms
Respiratory: Reports No Symptoms
Cardiac: Reports Chest Pain, Diaphoresis and Palpitations
Abdomen/GI: Reports Nausea
: Reports No Symptoms
Musculoskeletal: Reports Joint Pain
Skin: Reports No Symptoms
Neurological: Reports Weakness (Generalized, no numbness, no focal weakness)
Endocrine: Reports No Symptoms
Hematologic/Lymphatic: Reports No Symptoms
Psych: Reports No Symptoms
Physical Exam
Vital Signs
Vital Signs
Temp Pulse Resp BP Pulse Ox
97.5 F 83 11 166/76 97
08/01/24 00:06 08/01/24 02:30 08/01/24 00:30 08/01/24 02:00 08/01/24 02:39
Physical Exam
General: Well Developed, Well Nourished, Comfortable and Conversant
HEENT: NormoCephalic, Anicteric, Moist mucous membranes, Atraumatic and PERRLA
Respiratory: Clear
Cardiac: S1/S2 and Regular Rhythm; No Murmur, Rub, Gallop, Peripheral Edema or Calf Tenderness
Breast: Deferred by me
GI: Soft, Non Tender, Non Distended and Normal Bowel Sounds
Rectal: Deferred by Provider
Genito-urinary: Deferred by me
Musculoskeletal: No Clubbing, No Cyanosis and No Edema
Skin: Warm
Neuro: AO x 3, Nonfocal/grossly intact and Cranial Nerves Intact
Hematologic/Lymphatic: No Lymphadenopathy
Psych: Calm
Laboratory Results
-
08/01/24 00:32
08/01/24 01:09
Laboratory Results
Total Bilirubin 0.9 mg/dl (0.2-1.3) 08/01/24 01:09
AST 22 U/L (14-36) 08/01/24 01:09
ALT 12 U/L (0-35) 08/01/24 01:09
Alkaline Phosphatase 73 U/L (38-126) 08/01/24 01:09
Troponin I 0.077 ng/ml H* 08/01/24 01:09
Data Reviewed
-
Diagnostic Radiology: Image Personally Visualized and interpreted
Medical Tests (Nuc Med, Echo, EKG etc): Image Personally Visualized and interpreted
Lab Data: Labs Reviewed by me
Old Records: Reviewed
Impression/Plan
-
IMPRESSION:
88-year-old with history of proximal atrial fibrillation on anticoagulation, hypertension, hyperlipidemia, essential tremor cytosis who presented emergency department with several days of intermittent chest pain that often occurs with activity and
improved with rest and overnight developed more persistent chest pain with associated diaphoresis and nausea. She reports subacute dyspnea on exertion, chronic fatigue and generalized weakness.
PLAN:
Chest pain�history of intermittent chest pain now more persistent, currently denies having chest pain, localized substernally as well as 2 on the right side of her chest. Nonpleuritic. Troponin 0.07, ECG with slight ST depressions in the lateral
leads. Chest x-ray clear. Picture consistent with ACS
-Admit to telemetry
-Started on heparin drip, last dose of Eliquis was at around 9 pm
-Aspirin x 1
-Nitroglycerin as needed chest pain
-Echo in a.m.
-N.p.o.
-Checking lipid panel and A1c in a.m.
-Cardiology consulted and notified
-PT eval
AFIB
-Continue metoprolol at bedtime for rate control
-Currently on heparin
Hypertension
Continue lisinopril and Norvasc
Thrombocytosis
Continue dysuria
Anemia -microcytic anemia, history of GI bleed, reports iron levels were normal and she had constipation with oral iron supplementation which resulted in hemorrhoidal bleed. Possibly ACD versus marrow suppression from essential thrombocytosis
-Check iron and iron sat as well as ferritin
-Check B12 and folate levels
-Type and screen with a.m. labs
-Iron transfusion depending on levels
-Follow-up with outpatient PMD or outpatient dermatology
DVT prophylaxis�on heparin
CODE STATUS�DNR
[2024-08-01 03:08] LABS: APTT 24.9 Sec (23.4-35.0)
[2024-08-01] MEDS: HEPARIN 25000 UNITS/250 ML IV (03:17)
[2024-08-01] MEDS: FLUSH (NSS) 1 FLUSH IV (03:19)
--- NOTE | 2024-08-01 05:37 | PTCARENOTE ---
Received patient from ED @ 0430. A&OX3. Vitals stable. Heparin gtt running @ 8.5 units/hr through right hand. Discussed being NPO and plan for rest of shift. Patient verbalized understanding. Call don within reach.
[2024-08-01 05:46] LABS: Blood Urea Nitrogen 14 mg/dl (7-17); Calcium 8.7 mg/dl (8.4-10.2); Carbon Dioxide 23 mmol/L (22-30); Chloride 106 mmol/L (98-107); Estimated Creatinine Clearance 42 ml/min; Glucose 104 mg/dl (70-99); HDL Cholesterol 27 mg/dl; Iron 40 ug/dl (37-170); LDL Cholesterol, Calculated 66 mg/dl; Sodium 140 mmol/L (135-145); Total Cholesterol 134 mg/dl (50-199); Triglyceride 209 mg/dl (10-149); Very Low Density Lipoprotein 41 mg/dl (0-30); eGFR > 60.00
[2024-08-01 05:56] LABS: Percent Saturation 10 % (20-50); Total Iron Binding Capacity 374 ug/dl (265-497)
[2024-08-01 05:57] LABS: Troponin I 0.219 ng/ml
[2024-08-01 06:21] LABS: Ferritin 10.5 ng/ml (11.1-264.0)
[2024-08-01] MEDS: SYNTHROID PO (06:33)
[2024-08-01 06:52] LABS: Folate 14.8 ng/ml (2.76-20); Vitamin B12 822 pg/ml (239-931)
--- NOTE | 2024-08-01 07:46 | CON.CAR ---
Addendum entered and electronically signed by Julien Paris MD 08/01/24 14:10:
I saw and examined the patient.
The Cafeteria Director's note was reviewed and I agree with the note.
Comment: Briefly, 88-year-old woman past medical history of paroxysmal atrial fibrillation on Eliquis, prior abnormal stress test and essential thrombocytosis who presents with chest discomfort found to have elevated troponin with rise and fall
concerning for NSTEMI.
Patient was chest pain-free at the time of my evaluation and resting comfortably in the IVU
Plan to treat with aspirin/high intensity statin and heparin drip
Continue home metoprolol and amlodipine as antianginals
Discussed risk/benefits of invasive coronary angiography with the patient and she is considering this. Left heart cath can be done as soon as tomorrow if patient is interested in proceeding.
Appreciate hematology input regarding her essential thrombocytosis
Original Note:
Consultation
Consultation Request
Date/Time Consultation Requested: 08/01/24 at 0435
Date/Time Consultation Performed: 08/01/24 at 0746
Requesting Provider: Dr. Pugh
Performing Provider: Dr. Paris
Reason for Consultation: Chest pain, elevated Troponin
Medical History
-
History of Present Illness:
Patient came to ER last night with complaints of chest pain and was admitted with elevated troponin and cardiology is now consulted. Patient lives independently in her own home and reports that she has had BYRNES and CP for the last several weeks
that is progressive. Patient describes initially having trouble with carrying bags of groceries from her car to her home, then last week after putting a load of laundry and she almost was unable to climb a flight of stairs and finally last night
she had resting CP and SOB in bed and called 911. Initial troponin 0.077 and then peaked at 0.219. Patient has been pain-free since admission. Heparin drip was started. Patient has a history of essential thrombocytosis and had previously been
intolerant to Aranesp due to HYDE. She was then placed on hydroxyurea and developed transfusion dependent anemia. When there was an attempt to hold hydroxyurea she had increased platelet levels and then had left-sided pain and a CT scan revealed
splenic infarct and hydroxyurea was restarted. Patient reports her last transfusion was in April, but none for May or June. Last colonoscopy was in 2014. Now appears to have a new diagnosis of iron deficiency anemia as well.
PMH:
h/o abnormal stress test with inferior ischemia, patient opted not to pursue coronary CTA or cath 2021
Newly diagnosed iron deficiency anemia
last colonoscopy 2014
Essential thrombocytosis
previously intolerant to Aranesp due to HYDE
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
h/o transfusion dependent anemia
Paroxysmal Afib
Chronic Eliquis OAC
CKD 3a
HTN
Anaphylactic wheat allergy
Past Medical History
Past Medical History: Other (in HPI)
Past Surgical History: Cholecystectomy, Gynecological (hysterectomy and bladder lift 2007) and Orthopedic
Social History
Tobacco: Former Smoker
Alcohol: None
Drug: None
Personal:
Living: Alone
Family History
Family History: CAD and Cancer
Allergies / Home Medications
Allergy/AdvReac Type Severity Reaction Status Date / Time
wheat products Allergy Shortness Uncoded 08/01/24 02:37
of Breath
�Medication �Instructions �Recorded �Confirmed �Type
cholecalciferol (vitamin D3) 25 1,000 units PO DAILY Supplement 09/03/14 08/01/24 History
mcg (1,000 unit) tablet
cyanocobalamin (vitamin B-12) 500 1,000 mcg sublingual .MONWEDFRI 06/13/15 08/01/24 History
mcg sublingual tablet Supplement
hydroxyurea 500 mg capsule 500 mg PO DAILY THROMBOCYTOSIS 12/01/17 08/01/24 History
levothyroxine 75 mcg tablet 75 mcg PO DAILY Thyroid 02/14/21 08/01/24 History
metoprolol succinate 25 mg 25 mg PO HS Blood pressure 02/15/21 08/01/24 History
tablet,extended release 24 hr
(Toprol XL)
lisinopril 20 mg tablet 20 mg PO DAILY #30 tabs 02/16/21 08/01/24 Rx
amlodipine 2.5 mg tablet 2.5 mg PO DAILY 05/17/22 08/01/24 History
apixaban 5 mg tablet (Eliquis) 5 mg PO DAILY 08/01/24 08/01/24 History
gabapentin 300 mg tablet 300 mg PO HS 08/01/24 08/01/24 History
sufnozlp-xlu-unfok acid 0.4 1 tab PO DIRECTED 08/01/24 08/01/24 History
mg-lycopene 300 mcg-lutein 250 mcg
tablet (Centrum Silver)
sertraline 25 mg tablet 25 mg PO DAILY 08/01/24 08/01/24 History
Review of Systems
-
History Source: Patient
All other systems: Negative unless noted
Physical Exam
Vital Signs
Temp Pulse Resp BP Pulse Ox
97.7 F 76 18 161/76 96
08/01/24 04:45 08/01/24 05:30 08/01/24 04:45 08/01/24 04:42 08/01/24 05:30
GEN: NAD, AAOx3
HEENT: EOMI, MMM
LUNGS: RA. Clear anterolaterally without wheeze
CV: SR on tele. Reg, S1/S2, 1/6 systolic murmur
ABD: soft, BS+, NT, ND
EXT: No clubbing, cyanosis, lesions or edema B/L
NEURO: Gross non-focal
SKIN: Warm, dry and pink. No rash
Lab Results
08/01/24 00:32
08/01/24 05:08
Troponin I 0.219 ng/ml H* D 08/01/24 05:08
Impression / Plan
-
PCP: Dr. Brian
Card: Dr. Blood
Heme/Onc: Dr. Kearns
Impression:
Admitted with chest pain and elevated Troponin 07/31/24
Chest pain
Elevated troponin
h/o abnormal stress test with inferior ischemia, patient opted not to pursue coronary CTA or cath 2021
Newly diagnosed iron deficiency anemia
last colonoscopy 2014
Essential thrombocytosis
previously intolerant to Aranesp due to HYDE
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
h/o transfusion dependent anemia
Paroxysmal Afib
Chronic Eliquis OAC
CKD 3a
HTN
Anaphylactic wheat allergy
Lexiscan nuclear stress test 12/17/2021: Small area of mildly decreased perfusion that is predominantly reversible in the basal inferolateral, basal inferior and mid inferior segments consistent with infarction with residual ischemia, EF 72%
Echo 11/22/2018: EF 55 to 60%, stage I diastolic dysfunction, mild MR, mild to moderate TR with PAP 38 mmHg, normal RV size and function
Echo 08/01/24: Study pending
Plan:
-Patient came to ER last night with complaints of chest pain and was admitted with elevated troponin and cardiology is now consulted. Patient lives independently in her own home and reports that she has had BYRNES and CP for the last several weeks
that is progressive. Patient describes initially having trouble with carrying bags of groceries from her car to her home, then last week after putting a load of laundry and she almost was unable to climb a flight of stairs and finally last night
she had resting CP and SOB in bed and called 911. Initial troponin 0.077 and then peaked at 0.219. Patient has been pain-free since admission. Heparin drip was started. Patient has a history of essential thrombocytosis and had previously been
intolerant to Aranesp due to HYDE. She was then placed on hydroxyurea and developed transfusion dependent anemia. When there was an attempt to hold hydroxyurea she had increased platelet levels and then had left-sided pain and a CT scan revealed
splenic infarct and hydroxyurea was restarted. Patient reports her last transfusion was in April, but none for May or June. Last colonoscopy was in 2014. Now appears to have a new diagnosis of iron deficiency anemia as well.
-ECG reviewed by me shows SR and diffuse nonspecific ST depressions. Telemetry reviewed by me shows SR
-Troponin peaked at 0.219
-Patient is complicated due to newly diagnosed iron deficiency anemia and an Hgb of 7.8. Patient with a h/o essential thrombocytosis and as noted was previously intolerant to Aranesp due to HYDE and then while on hydroxyurea in 07/19/2022 developed
transfusion dependent anemia and when they attempted to stop hydroxyurea she had a splenic infarct. Will ask Heme/Onc to see patient now and make any recommendations.
-Last colonoscopy was in 2014, heme check stools.
-Recheck H&H in AM and if stable on Heparin gtt then consider cardiac cath.
-Reviewed with patient her previously abnormal stress test with inferior ischemia from 2021 and current clinical story of CP and elevated Troponin and proposed cardiac cath, but patient was unsure. Patient had not notified family of her admission.
Encouraged patient to notify her son and will attempt to talk to patient and son together in room later today and determine if patient wants cath.
-For now, continue outpatient dose of amlodipine 2.5 mg daily
-Continue outpatient dose of Toprol-XL 25 mg at bedtime
-Continue lisinopril 20 mg daily
-LDL 66, interestingly patient is not chronically on statin. Will try adding atorvastatin 20 mg daily
-Patient with known paroxysmal Afib and currently in SR.
-Outpatient dose of Eliquis 5 mg BID (age 88, Cre 0.8, wt 68.7 kg) is on hold while heparin gtt running.
-If patient proceeds with cath and has PCI then she would be triple therapy for 1-4 weeks.
[2024-08-01] MEDS: NORVASC 2.5 MG PO (08:27)
[2024-08-01] MEDS: ZESTRIL 20 MG PO (08:27)
[2024-08-01] MEDS: ZOLOFT 25 MG PO (08:57)
[2024-08-01] MEDS: HYDREA 500 MG PO (08:57)
[2024-08-01 09:08] LABS: Glycohemoglobin (HgbA1c) 4.6 % (4.0-5.6)
--- NOTE | 2024-08-01 09:42 | CON.ONC ---
Impression
Impression
Iron deficiency anemia
Essential thrombocytosis on hydroxyurea
Chest pain and possible unstable angina
Plan
Plan
Patient's anemia appears chronic although recent iron studies are lower suggesting she could benefit from IV iron to help replete her iron stores and hopefully improve her anemia. I suspect some of her symptoms could actually be from iron
deficiency anemia even though her hemoglobin is relatively close to her baseline. Hemoccult test stool her stools although I do not see evidence clinically of significant GI bleeding.
Patient History
History of Present Illness
CC: Chest pain.
Heme Consult ET, with anemia on HU
88-year-old woman with CALR+ essential thrombocytosis, initial platelet count at diagnosis = 1.2 million on Hydroxyurea 500 mg daily presenting to the emergency department with intermittent episodes of chest pain as well as dyspnea on exertion over
the last few weeks. Right-sided chest discomfort that appears to radiate to her back. She also has been feeling weak over the last few weeks. Ability to perform daily activities been diminishing. Initial CBC shows WBC 7.8, HgB = 7.8 with
platelet count of 414. Her counts are relatively close to baseline. Her anemia has been chronic for the past 5 to 10 years. Does seem to track with her hydroxyurea usage. No signs of bleeding although recent ferritin and Fe sat low suggestive of
Fe deficiency. . As she is going to be getting catheterization tomorrow cardiology is requesting evaluation of anemia likely as she may require DAPT in addition to Eliquis anticoagulation.
Past-Medical/Surgical History
PMH: paroxysmal atrial fibrillation on anticoagulation with apixaban, hypertension, hypothyroid, essential thrombocytosis
Patient Medication
�Medication �Instructions �Recorded �Confirmed �Last Taken �Type
cholecalciferol (vitamin D3) 25 1,000 units PO DAILY Supplement 09/03/14 08/01/24 06/02/22 History
mcg (1,000 unit) tablet
cyanocobalamin (vitamin B-12) 500 1,000 mcg sublingual .MONWEDFRI 06/13/15 08/01/24 06/01/22 History
mcg sublingual tablet Supplement
hydroxyurea 500 mg capsule 500 mg PO DAILY THROMBOCYTOSIS 12/01/17 08/01/24 07/03/23 History
0800
levothyroxine 75 mcg tablet 75 mcg PO DAILY Thyroid 02/14/21 08/01/24 07/03/23 History
0800
metoprolol succinate 25 mg 25 mg PO HS Blood pressure 02/15/21 08/01/24 06/01/22 History
tablet,extended release 24 hr
(Toprol XL)
lisinopril 20 mg tablet 20 mg PO DAILY #30 tabs 02/16/21 08/01/24 07/03/23 Rx
0800
amlodipine 2.5 mg tablet 2.5 mg PO DAILY 05/17/22 08/01/24 07/03/23 History
0830
apixaban 5 mg tablet (Eliquis) 5 mg PO DAILY 08/01/24 08/01/24 Unknown History
gabapentin 300 mg tablet 300 mg PO HS 08/01/24 08/01/24 Unknown History
ggdgejic-bze-dflkz acid 0.4 1 tab PO DIRECTED 08/01/24 08/01/24 Unknown History
mg-lycopene 300 mcg-lutein 250 mcg
tablet (Centrum Silver)
sertraline 25 mg tablet 25 mg PO DAILY 08/01/24 08/01/24 Unknown History
Active Medications
Generic Name Dose Route Start Last Admin
Trade Name Freq PRN Reason Stop Dose Admin
Acetaminophen 650 mg 08/01/24 04:35
Acetaminophen 325 Mg Tablet PO 08/29/24 04:34
Q4HPRN PRN
temp > 101 F
Al Hydrox/Mg Hydrox/Simethicone 30 ml 08/01/24 04:35
Mag/Al/Simethicone Suspension 30 Ml Cup PO 08/29/24 04:34
Q4HPRN PRN
heartburn
Amlodipine Besylate 2.5 mg 08/01/24 08:00 08/01/24 08:27
Amlodipine 2.5 Mg Tablet PO 08/29/24 07:59 2.5 mg
DAILY JOANIE Administration
Gabapentin 300 mg 08/01/24 22:00
Gabapentin 300 Mg Capsule PO 08/29/24 21:59
HS JOANIE
Hydroxyurea 500 mg 08/01/24 08:00 08/01/24 08:57
Hydroxyurea 500 Mg Capsule PO 08/29/24 07:59 500 mg
DAILY JOANIE Administration
Heparin Sodium 25,000 units in 250 mls @ 0 mls/hr 08/01/24 02:30 08/01/24 03:17
Heparin 78300 Units/250 Ml IV 250 mls
PER PROTOCOL JOANIE Administration
Protocol
Per Protocol
Levothyroxine Sodium 75 mcg 08/01/24 06:00 08/01/24 06:33
Levothyroxine 75 Mcg Tablet PO 08/29/24 05:59 Not Given
DAILY @ 0600 JOANIE
Lisinopril 20 mg 08/01/24 08:00 08/01/24 08:27
Lisinopril 20 Mg Tablet PO 08/29/24 07:59 20 mg
DAILY JOANIE Administration
Metoprolol Succinate 25 mg 08/01/24 22:00
Metoprolol 25 Mg Extended Release Tablet PO 08/29/24 21:59
HS JOANIE
Nitroglycerin 0.4 mg 08/01/24 04:35
Nitroglycerin 0.4 Mg Sl Tablet SL 08/29/24 04:34
[id number] PRN
chest pain
Sertraline HCl 25 mg 08/01/24 08:00 08/01/24 08:57
Sertraline 25 Mg Tablet PO 08/29/24 07:59 25 mg
DAILY JOANIE Administration
Sodium Chloride 0 flush 08/01/24 04:00 08/01/24 03:19
Sodium Chloride 0.9% (Flush) Syringe IV 08/29/24 03:59 1 flush
PER PROTOCOL JOANIE Administration
Physical Exam
-
General: No Apparent Distress and Comfortable
HEENT: Negative Jaundice
Cardiology: S1 and S2
Pulmonary: Clear
GI: Soft
Extremities: No C/C/E
Neurology: Non Focal
Labs
Lab Results
WBC 7.8 10^3/uL (4.8-10.8) 08/01/24 00:32
RBC 2.62 10^6/uL (4.20-5.40) L 08/01/24 00:32
Hgb 7.8 g/dL (12.0-16.0) L 08/01/24 00:32
Hct 25.5 % (37.0-47.0) L 08/01/24 00:32
MCV 97.3 fL (81.0-99.0) 08/01/24 00:32
MCH 29.8 pg (27.0-31.0) 08/01/24 00:32
MCHC 30.6 g/dL (33.0-37.0) L 08/01/24 00:32
RDW 19.9 % (11.5-14.5) H 08/01/24 00:32
Plt Count 414 10^3/uL (130-400) H 08/01/24 00:32
MPV 11.4 fL (7.4-10.4) H 08/01/24 00:32
Creatinine 0.8 mg/dL (0.6-1.0) 08/01/24 05:08
07/06/2024
Ferritin 16.6(50.5)
IRON 44(53) ug/dl 37-170
TIBC 378 ug/dl 265-497
% Fe sat 11Low % 20-50
Performing Location: = [facility]
Vital Signs
Vital Signs
Temp Pulse Resp BP Pulse Ox
98.2 F 73 18 161/76 97
08/01/24 07:56 08/01/24 07:56 08/01/24 04:45 08/01/24 04:42 08/01/24 07:56
[2024-08-01 10:02] LABS: APTT 38.8 Sec (23.4-35.0)
[2024-08-01 10:19] LABS: Troponin I 0.194 ng/ml
--- NOTE | 2024-08-01 12:59 | W.PN.HOSP.TC ---
Today's Communication/Plan
-
monitor vitals
see plan
cw hep gtt
cw IV iron
initiate diet if no procedure planned today
non billable Note
Assessment / Plan
Assessment / Plan
General: Well Developed, Well Nourished, Comfortable and Conversant
HEENT: NormoCephalic, Anicteric, Moist mucous membranes, Atraumatic and PERRLA
Respiratory: Clear
Cardiac: S1/S2 and Regular Rhythm; No [place]
GI: Soft, Non Tender, Non Distended and Normal Bowel Sounds
Musculoskeletal:No Edema
Skin: Warm
Neuro: AO x 3, Nonfocal/grossly intact and Cranial Nerves Intact
Psych: Calm
Chest pain; r/o ACS
possible NSTEMI; trop peaked 0.2
cw hep gtt
check echo
cardiology following
-Started on heparin drip, last dose of Eliquis was at around 9 pm 3/
-Nitroglycerin as needed chest pain
-N.p.o.
paroxysmal AFIB
-Continue metoprolol at bedtime for rate control
-Currently on heparin
Hypertension
Continue lisinopril and Norvasc
chronic Thrombocytosis
on hydroxyurea
heme following
Anemia -microcytic anemia, history of GI bleed, reports iron levels were normal and she had constipation with oral iron supplementation which resulted in hemorrhoidal bleed.
KLEVER
start IV iron
heme test stool per heme
DVT prophylaxis�on heparin
CODE STATUS�DNR
Anticipated Discharge: > 48 hours
Subjective/Interval History
-
Date of Service: August 01, 2024
denies sob
Objective Data
-
Labs:
Laboratory Results
08/01/24 08/01/24 08/01/24
01:09 02:46 05:08
APTT 24.9
Sodium 140 140
Potassium 4.2 4.0
Chloride 106 106
Carbon Dioxide 24 23
BUN 14 14
Creatinine 0.8 0.8
Glucose 166 H 104 H
Calcium 8.8 8.7
Total Bilirubin 0.9
AST 22
ALT 12
Alkaline Phosphatase 73
08/01/24 08/01/24
09:39 17:00
APTT 38.8 H Pending
Sodium
Potassium
Chloride
Carbon Dioxide
BUN
Creatinine
Glucose
Calcium
Total Bilirubin
AST
ALT
Alkaline Phosphatase
Vital Signs:
Vital Signs
Temp Pulse Resp BP Pulse Ox
98 F 74 18 127/103 95
08/01/24 10:50 08/01/24 12:45 08/01/24 10:50 08/01/24 10:55 08/01/24 10:50
--- NOTE | 2024-08-01 13:10 | CM ---
CM following for DC planning needs.
Met w/ patient at bedside to complete initial assessment.
Pt. resides alone in a private 1 st home (w/ basement, where she keeps her washer/dryer).
Pt. reports that normally she is functionally indep. w/ ADLs, mobility but within the past sev. weeks she has felt weaker.
She drives and grocery shops on her own.
Her son assists on Sundays w/ quill machine tender, such as taking out garbage.
Pt. has RX plan and uses [facility] for prescription needs.
CM to follow for DC needs.
[2024-08-01] MEDS: FERRLECIT 110 MG IV (15:44)
[2024-08-01] MEDS: ASPIRIN 325 MG PO (15:44)
[2024-08-01 17:50] LABS: APTT 124.2 Sec (23.4-35.0)
[2024-08-01] MEDS: LIPITOR 40 MG PO (18:27)
[2024-08-01] MEDS: NEURONTIN 300 MG PO (22:36)
[2024-08-01] MEDS: TOPROL XL 25 MG PO (22:36)
--- NOTE | 2024-08-01 23:56 | PTCARENOTE ---
Pt rec'd at change of shift sitting in recliner chair. Sinus with pac's on telemetry. Heparin drip infusing at 950 units.hr. Will keep pt npo for possible cath in am. No c/o CP.
[2024-08-02] VITALS (8 sets, daily range): BP systolic 139–176; BP diastolic 52–72; PULSE 76; O2SAT 99; BMI 26.1
[2024-08-02 02:11] LABS: Hematocrit 24.5 % (37.0-47.0); Hemoglobin 7.4 g/dL (12.0-16.0); Mean Corp Hgb Conc. 30.2 g/dL (33.0-37.0); Mean Corpuscular Hgb 29.5 pg (27.0-31.0); Mean Corpuscular Volume 97.6 fL (81.0-99.0); Mean Platelet Volume 10.5 fL (7.4-10.4); Platelet Count 461 10^3/uL (130-400); Red Blood Cell Count 2.51 10^6/uL (4.20-5.40); Red Cell Dist. Width 19.4 % (11.5-14.5); White Blood Cell Count 8.4 10^3/uL (4.8-10.8)
[2024-08-02 02:19] LABS: APTT 84.9 Sec (23.4-35.0)
[2024-08-02 03:44] LABS: Blood Urea Nitrogen 16 mg/dl (7-17); Calcium 8.6 mg/dl (8.4-10.2); Carbon Dioxide 25 mmol/L (22-30); Chloride 102 mmol/L (98-107); Estimated Creatinine Clearance 37 ml/min; Glucose 83 mg/dl (70-99); Potassium 4.1 mmol/L (3.5-5.1); Sodium 137 mmol/L (135-145); eGFR > 60.00
[2024-08-02] MEDS: HEPARIN 25000 UNITS/250 ML IV (04:01)
[2024-08-02 06:37] LABS: Absolute Neutrophils -Man Diff 6.8 10^3/uL (1.4-6.5); Band Neutrophils 9 % (0-3); Eosinophils 1 % (0-6); Lymphocytes 11 % (20-51); Metamyelocytes 2 % (-); Monocytes 3 % (2-9); Myelocytes 1 % (-); Segmented Neutrophils 72 % (42-75)
[2024-08-02 06:38] LABS: Acanthocytes Occasional; Anisocytosis 1+; Basophilic Stippling 1+; Hypersegmented Neutrophil 1+; Hypochromasia 1+; Normal RBC Morphology No; Nucleated Red Blood Cells 6 (-); Ovalocytes 1+; Platelets Checked Yes; Polychromasia 1+; Schistocytes Occasional; Target Cells Occasional; Tear Drop Red Blood Cells 1+; Total Cells Counted 100; Toxic Granulation Occassional
[2024-08-02 06:39] LABS: Poikilocytosis 1+; Stomatocytes 1+
[2024-08-02] MEDS: SYNTHROID 75 MCG PO (07:23)
--- NOTE | 2024-08-02 08:29 | W.PN.CARDCBS ---
Addendum entered and electronically signed by Pete Blood MD 08/02/24 11:24:
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 Progressive dyspnea on
exertion and exertional chest discomfort over recent months. Previously had dyspnea on exertion only. No acute ST segment changes on electrocardiogram. Hemoglobin typically 10-11, has been going down over the last year, was 9 in February, 8.4 in
April and now 7.4. She reports her heart rate was very erratic and could not be counted the night she came into the hospital.
Medications: Amlodipine 2.5 mg a day, gabapentin 300 at bedtime, Hydrea 500 a day, levothyroxine 75 mcg daily, lisinopril 20 mg daily, sertraline 25 daily, IV iron, atorvastatin 40 mg a day, IV heparin, aspirin 81 mg a day and metoprolol 25 mg twice
daily
141/61, pulse 75, respiratory rate 20, afebrile
Chest x-ray no active disease,
Echo: EF 60-65%'s, mild to moderate MR, mild to moderate TR, pulmonary artery systolic pressure 59 mmHg
Hemoglobin 7.4, platelets 461, BUN and creatinine 16 and 0.9 with a potassium of 4.1
Impression:
Chest pain with troponin 0.22, ACS versus non-ACS nonischemic myocardial injury related to anemia
Essential thrombocytosis
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
History of splenic infarcts
Paroxysmal atrial fibrillation on Eliquis
Anemia, transfusion dependent, previously on erythropoietin analogs
Plan:
Difficult situation with anemia and presumed element of GI blood loss, with possible ACS, had been planning for EGD but this has been postponed until tomorrow for technical reasons.
Ideally, cardiac catheterization would be the best way to define anatomy, however PCI could potentially be problematic in the setting of thrombocytosis and anemia that has been transfusion dependent in the past.
Continue heparin for now but may need to discontinue. She is on aspirin.
Low threshold for transfusion at this time, will await follow-up hemoglobin.
Okay to proceed with EGD.
Agree with doubling of metoprolol ER to 25 twice daily. Will increase amlodipine as well to 5 mg a day for possible antianginal effect.
Over the weekend, we can decide about cardiac cath examination.
Original Note:
Today's Communication / Plan
-
GI consult for iron def anemia
Heparin gtt renewed, pain free
Increased Toprol XL to 25 mg BID today
52 min face to face and coordination of care
Impression / Plan
-
PCP: Dr. Brian
Card: Dr. Blood
Heme/Onc: Dr. Kearns
Impression:
Admitted with chest pain and elevated Troponin 07/31/24
Chest pain
Elevated troponin, likely NSTEMI, peak Troponin 0.219
h/o abnormal stress test with inferior ischemia, patient opted not to pursue coronary CTA or cath 2021
Newly diagnosed iron deficiency anemia
last colonoscopy 2014
Essential thrombocytosis
previously intolerant to Aranesp due to HYDE
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
h/o transfusion dependent anemia
Paroxysmal Afib
Chronic Eliquis OAC
CKD 3a
HTN
Anaphylactic wheat allergy
Lexiscan nuclear stress test 12/17/2021: Small area of mildly decreased perfusion that is predominantly reversible in the basal inferolateral, basal inferior and mid inferior segments consistent with infarction with residual ischemia, EF 72%
Echo 11/22/2018: EF 55 to 60%, stage I diastolic dysfunction, mild MR, mild to moderate TR with PAP 38 mmHg, normal RV size and function
Echo 08/01/24: EF 60 to 65%, no gross wall motion abnormalities, mild to moderate MR, mild to moderate TR with PAP 59 mmHg
Plan:
-Hgb down to 7.4 on 08/02/24. Heme check stools was ordered, but not BM since admission. Last colonoscopy was 2014. No reports of melena or BRBPR. Will ask GI to see, ordered by me.
-Appreciate input from Heme/Onc given h/o essential thrombocytosis and while on hydroxyurea in 06/2022 developed transfusion dependent anemia and when they attempted to stop hydroxyurea she had a splenic infarct so hydroxyurea was restarted and Hgb
has been in the 8s most of the time as monitored by Heme/Onc. Heme/Onc saw patient and started iron infusion 08/01/24.
-Troponin peaked at 0.219. Progressive angina for weeks prior to admission and then USA the night of admission. Also with previously abnormal stress test with inferior ischemia from 2021
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
-Continue outpatient dose of amlodipine 2.5 mg daily
-Increase outpatient dose of Toprol-XL 25 mg to BID, ordered by me 08/02/24
-Continue outpatient dose of lisinopril 20 mg daily
-LDL 66, new to atorvastatin 40 mg daily
-Patient with known paroxysmal Afib and currently in SR.
-Outpatient dose of Eliquis 5 mg BID (age 88, Cre 0.8, wt 68.7 kg) is on hold while heparin gtt running, renewed by me 08/02/24.
-If patient proceeds with cath and has PCI then she would be triple therapy for 1-4 weeks.
HPI: Patient came to ER last night with complaints of chest pain and was admitted with elevated troponin and cardiology is now consulted. Patient lives independently in her own home and reports that she has had BYRNES and CP for the last several
weeks that is progressive. Patient describes initially having trouble with carrying bags of groceries from her car to her home, then last week after putting a load of laundry and she almost was unable to climb a flight of stairs and finally last
night she had resting CP and SOB in bed and called 911. Initial troponin 0.077 and then peaked at 0.219. Patient has been pain-free since admission. Heparin drip was started. Patient has a history of essential thrombocytosis and had previously
been intolerant to Aranesp due to HYDE. She was then placed on hydroxyurea and developed transfusion dependent anemia. When there was an attempt to hold hydroxyurea she had increased platelet levels and then had left-sided pain and a CT scan
revealed splenic infarct and hydroxyurea was restarted. Patient reports her last transfusion was in April, but none for May or June. Last colonoscopy was in 2014. Now appears to have a new diagnosis of iron deficiency anemia as well.
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
Subjective
Date of Service: August 02, 2024
No chest pain overnight
Objective
Labs:
08/02/24 01:56
08/02/24 01:56
Labs
Hgb 7.4 g/dL (12.0-16.0) L 08/02/24 01:56
Hct 24.5 % (37.0-47.0) L 08/02/24 01:56
Plt Count 461 10^3/uL (130-400) H 08/02/24 01:56
APTT 84.9 Sec (23.4-35.0) H 08/02/24 01:56
Sodium 137 mmol/L (135-145) 08/02/24 01:56
Potassium 4.1 mmol/L (3.5-5.1) 08/02/24 01:56
BUN 16 mg/dl (7-17) 08/02/24 01:56
Creatinine 0.9 mg/dL (0.6-1.0) 08/02/24 01:56
Glucose 83 mg/dl (70-99) 08/02/24 01:56
Troponins
08/01/24 08/01/24 08/01/24
00:32 01:09 05:08
Troponin I Cancelled 0.077 H* 0.219 H* D
08/01/24
09:39
Troponin I 0.194 H*
Vital Signs and I&O:
Vital Signs
Temp Pulse Resp BP Pulse Ox
98.5 F 74 20 152/68 98
08/02/24 07:46 08/02/24 01:40 08/02/24 07:46 08/02/24 01:40 08/02/24 07:46
Vital Signs
Temp Pulse Resp BP Pulse Ox
98.5 F 74 20 152/68 98
08/02/24 07:46 08/02/24 01:40 08/02/24 07:46 08/02/24 01:40 08/02/24 07:46
Physical Exam
Physical Exam
GEN: NAD, AAOx3
HEENT: MMM
LUNGS: RA. No wheeze
CV: SR on tele.
ABD: ND
EXT: No edema B/L
NEURO: Gross non-focal
SKIN: No rash
[2024-08-02] MEDS: LOW STRENGTH ASPIRIN 81 MG PO (08:36)
[2024-08-02] MEDS: ZESTRIL 20 MG PO (08:38)
[2024-08-02] MEDS: ZOLOFT 25 MG PO (08:38)
[2024-08-02] MEDS: HYDREA 500 MG PO (08:39)
[2024-08-02] MEDS: NORVASC 2.5 MG PO ×2 (08:41→12:03)
[2024-08-02] MEDS: TOPROL XL 25 MG PO ×2 (09:05→20:12)
[2024-08-02 09:29] LABS: APTT 72.2 Sec (23.4-35.0)
--- NOTE | 2024-08-02 09:41 | CON.GI ---
Addendum entered and electronically signed by Jones Lewis MD 08/02/24 11:28:
I saw and evaluated the patient. I reviewed the resident�s note and agree with findings and plan as documented in the resident�s note.
88yo female presents with NSTEMI currently planning cath by Cardiology but found to be anemic Hgb 7.8 and GI eval requested. She has chronic anemia and hx ET treated w hydrea, but ferritin is decreased from last year. Denies BPR, melena, has
occasional sticking in throat worked up with esophagram in past- presbyesophagus and cervical impingement, slight. Denies HB, dysphagia. She had colonoscopy in 2019 which found two small polyps (8mm serrated rectal polyp, 4mm cecal adenoma),
diverticulosis, hemorrhoids. Random bx taken for diarrhea sx negative. She had f/u flex sig to look at rectal polyp that was negative. She is on heparin gtt and my need triple therapy after cath including plavix/eliquis for a year
REC:
Hold heparin gtt at 4am
NPO p MN
Plan EGD tomorrow to r/o UGIB source before cardiac intervention
Original Note:
Consultation
-
Date/Time Consultation Requested: 08/02/2024 07:45
Date/Time Consultation Performed: 08/02/24 9:42
Requesting Provider: Chayo Fernandez PA-C
Performing Provider: Federica Fuentes MD
Reason for Consultation: Anemia
Medical History
Chief Complaint / HPI
Chief Complaint: Chest pain
History of Present Illness:
The patient is a 80-year-old female with a PMH of paroxysmal atrial fibrillation (on Eliquis), hypertension, hypothyroidism, essential thrombocytosis who presented to ER after having chest pain radiating to her right arm and jaw. Patient reports
having similar intermittent chest pain episodes resolving itself as well as dyspnea on exertion for last few weeks. At ER, patient's BP was found elevated to 166/76 with a pulse of 85, EKG showed normal sinus rhythm and lateral ST depressions,
elevated troponin levels to 0.07, CBC was significant for low level of hemoglobin to 7.8 (baseline 8-10 in last years). Following admission with a concern of NSTEMI, the patient was seen by cardiology team on 08/01/24 and started on heparin drip
with a further plan for cardiac cath if the patient is stable on heparin drip. The patient was consulted to GI team to assess her anemia. The patient has been taking hydroxyurea due to essential thrombocytosis since last 12 years and developed
transfusion dependent anemia with her last transfusion in April 2024. She was also given iron supplements last year, she took iron pills for 12 months and stopped taking about 6 weeks ago due to constipation. The patient denies nausea,
vomiting, hematemesis, odynophagia, heartburn, GERD, melena, black tarry stool, bleeding,NSAID use, alcohol use, decreased appetite she reported having 1 episode of a few drips of bleeding from rectal area related being constipated and having hard
stools with bowel movements when she was on iron tablets. She also reported having dysphagia and some studies for it in 2021. 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
Her last colonoscopy was on 02/25/2020 noting diverticulosis, nonbleeding internal hemorrhoids and polyps.
Past Medical History
Past Medical History: Arrhythmias (Atrial fibrillation), HTN, Hypothyroidism and Other (Essential thrombocytosis)
Past Surgical History: Cholecystectomy and Gynecological (Hysterectomy, tubal ligation)
Social History
Tobacco: Non-Smoker
Alcohol: None
Drug: None
Personal:
Living: Alone
Employment: Retired
Family History
Family History: Reviewed & Not Pertinent
Allergies / Home Medications
Allergy/AdvReac Type Severity Reaction Status Date / Time
wheat products Allergy Shortness Uncoded 08/01/24 02:37
of Breath
�Medication �Instructions �Recorded
cholecalciferol (vitamin D3) 25 1,000 units PO DAILY Supplement 09/03/14
mcg (1,000 unit) tablet
cyanocobalamin (vitamin B-12) 500 1,000 mcg sublingual .[id number] 06/13/15
mcg sublingual tablet Supplement
hydroxyurea 500 mg capsule 500 mg PO DAILY THROMBOCYTOSIS 12/01/17
levothyroxine 75 mcg tablet 75 mcg PO DAILY Thyroid 02/14/21
metoprolol succinate 25 mg 25 mg PO HS Blood pressure 02/15/21
tablet,extended release 24 hr
(Toprol XL)
lisinopril 20 mg tablet 20 mg PO DAILY #30 tabs 02/16/21
amlodipine 2.5 mg tablet 2.5 mg PO DAILY 05/17/22
apixaban 5 mg tablet (Eliquis) 5 mg PO DAILY 08/01/24
gabapentin 300 mg tablet 300 mg PO HS 08/01/24
jfxzvyoy-mbu-ltsar acid 0.4 1 tab PO DIRECTED 08/01/24
mg-lycopene 300 mcg-lutein 250 mcg
tablet (Centrum Silver)
sertraline 25 mg tablet 25 mg PO DAILY 08/01/24
Review of Systems
-
History Source: Patient
Constitutional: Reports No Symptoms
EENT: Reports No Symptoms
Respiratory: Reports No Symptoms
Cardiac: Reports No Symptoms
Abdomen/GI: Reports No Symptoms
: Reports No Symptoms
Musculoskeletal: Reports No Symptoms
Skin: Reports No Symptoms
Neurological: Reports Weakness (Generalized)
Vital Signs
Temp Pulse Resp BP Pulse Ox
98.5 F 75 20 141/61 98
08/02/24 07:46 08/02/24 08:00 08/02/24 07:46 08/02/24 07:47 08/02/24 07:46
Physical Exam
Exam
General: Well Developed, Well Nourished and Comfortable
HEENT: Normocephalic and Anicteric
Respiratory: Clear
Cardiac: S1/S2 and Irregular Rhythm
GI: Soft, Non Tender and Non Distended
Musculoskeletal: No Clubbing, No Cyanosis and Edema (Trace 1+ edema bilateral more dominant on the left side)
Skin: Warm
Neuro: Awake, Alert, Oriented, AO x 3 and Nonfocal/Grossly Intact
Psych: Calm
Results
WBC 8.4 10^3/uL (4.8-10.8) 08/02/24 01:56
Hgb 7.4 g/dL (12.0-16.0) L 08/02/24 01:56
Hct 24.5 % (37.0-47.0) L 08/02/24 01:56
MCV 97.6 fL (81.0-99.0) 08/02/24 01:56
Plt Count 461 10^3/uL (130-400) H 08/02/24 01:56
APTT 72.2 Sec (23.4-35.0) H 08/02/24 09:03
Sodium 137 mmol/L (135-145) 08/02/24:56
Potassium 4.1 mmol/L (3.5-5.1) 08/02/24 01:56
Chloride 102 mmol/L (98-107) 08/02/24 01:56
Carbon Dioxide 25 mmol/L (22-30) 08/02/24 01:56
BUN 16 mg/dl (7-17) 08/02/24 01:56
Creatinine 0.9 mg/dL (0.6-1.0) 08/02/24:56
Calcium 8.6 mg/dl (8.4-10.2) 08/02/24 01:56
Total Bilirubin 0.9 mg/dl (0.2-1.3) 08/01/24 01:09
AST 22 U/L (14-36) 08/01/24 01:09
ALT 12 U/L (0-35) 08/01/24 01:09
Alkaline Phosphatase 73 U/L (38-126) 08/01/24 01:09
Diagnostic Image Results:
Prior GI Procedures:
EGD: No known endoscopy
Colonoscopy: 02/25/20
Findings:
A 8 mm polyp was found in the rectum. The polyp was pedunculated. The
polyp was removed with a piecemeal technique using a hot snare.
Resection and retrieval were complete.
A 4 mm polyp was found in the appendiceal orifice. The polyp was
sessile. This was biopsied with a cold large-capacity forceps for
histology.
Multiple small and large-mouthed diverticula were found in the sigmoid
colon and descending colon.
Normal mucosa was found in the entire colon. Several biopsies were
obtained with cold large-capacity forceps for histology and evaluation
of microscopic colitis randomly in the entire colon.
Non-bleeding internal hemorrhoids were found during retroflexion. The
hemorrhoids were small.
No other significant abnormalities were identified in a careful
examination of the remainder of the colon.
The terminal ileum appeared normal.
Impression: - One 8 mm polyp in the rectum, removed piecemeal
using a hot snare. Resected and retrieved.
- One 4 mm polyp at the appendiceal orifice. Biopsied.
- Diverticulosis in the sigmoid colon and in the
descending colon.
- Normal mucosa in the entire examined colon. Several
biopsies were obtained with cold large-capacity
forceps for histology and evaluation of microscopic
colitis randomly in the entire colon.
- Non-bleeding internal hemorrhoids.
Assessment / Plan
-
Assessment
Ms Farooq is a 80-year-old female with a PMH of paroxysmal atrial fibrillation (on Eliquis), hypertension, hypothyroidism, essential thrombocytosis who was admitted to the hospital for a concern of NSTEMI with elevated troponin levels. Patient was
started on heparin drip by cardiology team and it was planned to proceed with a cardiac cath if the patient remains stable on heparin drip. The patient was asked to GI team for the evaluation of her anemia. The patient has been taking
hydroxyurea due to essential thrombocytosis since last 12 years and developed transfusion dependent anemia with her last transfusion in April 2024. She was also given iron supplements last year, she took iron pills for 12 months and stopped
taking about 6 weeks ago due to constipation. She reported having 1 episode of a few drips of bleeding from rectal area related being constipated likely from her hemorrhoids. Her last colonoscopy was on 02/25/2020, noting diverticulosis,
nonbleeding internal hemorrhoids and polyps. She did not undergo an EGD in the past. Her lab results noted hemoglobin 7.8, PLT 414, RDW elevated , iron level 40, TIBC 374, iron saturation 10 and ferritin 10.5. Comparing her iron studies to
previous lab results in 2023, ferritin and iron saturation seem decreased but TIBC and iron is in normal range. No history or signs of active GI bleeding. Additionally, the patient also reported having dysphagia and some studies for it in 2021.
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
Problem list
Chronic anemia likely multifactorial
History of constipation with iron tablets
Acute coronary syndrome
Atrial fibrillation
Hypertension
Hypothyroidism
Plan
#Chronic anemia likely medication induced vs marrow suppression from ET vs chronic disease vs GI bleeding
-Has been on hydroxyurea for last 12 years
-History of transfusion dependent anemia
-Hematology on board
-Iron studies shows decreased ferritin iron saturation comparing to 2023 lab results
-No signs of active GI bleeding
-Hemoglobin level 7.8 not so far from her baseline(baseline 8-10)
-Has been on Eliquis with the last dose on Tuesday 9:15 PM
-Planning to start triple anticoagulation following cardiac cath
-EGD is planning for tomorrow morning
-NPO after midnight
-Need to hold heparin drip 6 hour prior to EGD procedure
-Cardiology team agreed to hold heparin drip before the procedure
-
-
Thank you for consultation and allowing me to participate in the patient's care. Please call the chuck wagon driver GI physician during the after hours with any questions or concerns.
--- NOTE | 2024-08-02 10:13 | W.PN.ONC2 ---
Today's Communication / Plan
-
.
Impression
Impression
Iron deficiency anemia, ferritin 10.5
chronic anemia, competent of cytoreduction from hydrea
CALR+ essential thrombocytosis
Right-sided chest discomfort, radiates to back
troponin peak 0.2, possible NSTEMI on heparin gtt
PAF DOAC on hold
History of splenic infarcts
Plan
Plan
continue ferric gluconate x 5 doses
transfuse Hgb <7 or as needed for sxs anemia
plan for EGD
continue Hydrea
defer to cardiology/GI regarding risk/benefit of antiplatelet and anticoagulation
cardiac intervention per cardiology
Subjective/Objective
Subjective
no new complaints
afebrile, no hypoxia or hypotension
Hgb 7.4g/dL, platelets 461,000
Vital Signs:
Vital Signs
Temp Pulse Resp BP Pulse Ox
98.5 F 75 20 141/61 98
08/02/24 07:46 08/02/24 08:00 08/02/24 07:46 08/02/24 07:47 08/02/24 07:46
Lab Results:
Laboratory Data
WBC 8.4 10^3/uL (4.8-10.8) 08/02/24 01:56
Hgb 7.4 g/dL (12.0-16.0) L 08/02/24 01:56
Plt Count 461 10^3/uL (130-400) H 08/02/24 01:56
APTT 72.2 Sec (23.4-35.0) H 08/02/24 09:03
eGFR > 60.00 08/02/24 01:56
Physical Exam
General: No Apparent Distress and Comfortable
HEENT: Negative Jaundice
Cardiology: S1 and S2
Pulmonary: Clear
GI: Soft
Extremities: No C/C/E
Neurology: Non Focal
--- NOTE | 2024-08-02 10:14 | PTCARENOTE ---
Pt received this am with no c/o of any chest pain or sob. IV heparin infusing as ordered but later stopped at 0940 for Endoscopy later today.
--- NOTE | 2024-08-02 12:25 | W.PN.HOSP.TC ---
Today's Communication/Plan
-
monitor vitals
see plan
EGD today
monitor hgb
IV hep on hold for EGD
Assessment / Plan
Assessment / Plan
General: Well Developed, Well Nourished, Comfortable and Conversant
HEENT: NormoCephalic, Anicteric, Moist mucous membranes, Atraumatic and PERRLA
Respiratory: Clear
Cardiac: S1/S2 and Regular Rhythm; No [place]
GI: Soft, Non Tender, Non Distended and Normal Bowel Sounds
Musculoskeletal:No Edema
Skin: Warm
Neuro: AO x 3, Nonfocal/grossly intact and Cranial Nerves Intact
Psych: Calm
Chest pain; r/o ACS
possible NSTEMI; trop peaked 0.2
cw hep gtt
echo with preserved EF
cardiology following
-Started on heparin drip, last dose of Eliquis was at around 9 pm 3/
-Nitroglycerin as needed chest pain
-N.p.o. for now
Anemia -microcytic anemia, history of GI bleed, reports iron levels were normal and she had constipation with oral iron supplementation which resulted in hemorrhoidal bleed.
KLEVER
start IV iron
heme test stool per heme
hgb 7.4 today
GI consulted; plan for EGD today
no overt signs of bleeding
paroxysmal AFIB
-Continue metoprolol at bedtime for rate control
-Currently on heparin
Hypertension
Continue lisinopril and Norvasc
chronic Thrombocytosis
on hydroxyurea
heme following
DVT prophylaxis�on heparin
CODE STATUS�DNR
Anticipated Discharge: Today
Subjective/Interval History
-
Date of Service: August 02, 2024
denies pain
Objective Data
-
Labs:
Laboratory Results
08/02/24 08/02/24 08/02/24
01:56 09:03 16:35
WBC 8.4
Hgb 7.4 L
Hct 24.5 L
Plt Count 461 H
APTT 84.9 H 72.2 H Pending
Sodium 137
Potassium 4.1
Chloride 102
Carbon Dioxide 25
BUN 16
Creatinine 0.9
Glucose 83
Calcium 8.6
Vital Signs:
Vital Signs
Temp Pulse Resp BP Pulse Ox
97.6 F 72 18 145/53 99
08/02/24 11:50 08/02/24 12:00 08/02/24 11:50 08/02/24 11:50 08/02/24 11:50
[2024-08-02] MEDS: FERRLECIT 110 MG IV (13:38)
--- NOTE | 2024-08-02 16:14 | CM ---
CM following for DC planning needs.
Met w/ patient at bedside.
DC plan anticipated for home w/o needs. Will cont. to follow.
[2024-08-02 17:09] LABS: APTT 119.1 Sec (23.4-35.0)
[2024-08-02] MEDS: LIPITOR 40 MG PO (17:22)
[2024-08-02] MEDS: MAALOX 30 ML PO (17:26)
[2024-08-02] MEDS: NEURONTIN 300 MG PO (20:12)
--- NOTE | 2024-08-02 20:34 | PTCARENOTE ---
Assumed care of the pt @ 1900. Pt is AAOx3 SR on the monitor VSS Heparin gtt infusing @ 950 units/HR.. Pt states BM x3 today ' My stomach doesn't feel right'. Maalox was given by previous shift with some relief. Pt is aware NPO after mn for
Endoscopy.
[2024-08-02 23:55] LABS: APTT 89.9 Sec (23.4-35.0)
[2024-08-03] VITALS (17 sets, daily range): BP systolic 12–169; BP diastolic 45–81; BMI 25.8
[2024-08-03] MEDS: SYNTHROID 75 MCG PO (05:03)
[2024-08-03 05:16] LABS: Hematocrit 23.8 % (37.0-47.0); Mean Corp Hgb Conc. 29.4 g/dL (33.0-37.0); Mean Corpuscular Hgb 29.4 pg (27.0-31.0); Mean Platelet Volume 11.1 fL (7.4-10.4); Platelet Count 449 10^3/uL (130-400); Red Blood Cell Count 2.38 10^6/uL (4.20-5.40); Red Cell Dist. Width 19.3 % (11.5-14.5); White Blood Cell Count 8.3 10^3/uL (4.8-10.8)
[2024-08-03 05:20] LABS: Blood Urea Nitrogen 16 mg/dl (7-17); Calcium 8.9 mg/dl (8.4-10.2); Carbon Dioxide 24 mmol/L (22-30); Chloride 107 mmol/L (98-107); Estimated Creatinine Clearance 34 ml/min; Glucose 94 mg/dl (70-99); Sodium 137 mmol/L (135-145); eGFR 54.19
[2024-08-03 08:05] LABS: % Basophils 1.7 % (0-2); % Eosinophils 0.5 % (0-6); % Immature Granulocytes 7.4 % (0-0.5); % Lymphocytes 11.1 % (20.5-51.1); % Monocytes 7.7 % (1.7-9.3); % Neutrophils 71.6 % (42.2-75.2); Absolute Basophils 0.1 10^3/uL (0-0.2); Absolute Immature Granulocytes 0.6 10^3/uL (0-0.05); Absolute Lymphocytes 0.9 10^3/uL (1.2-3.4); Absolute Monocytes 0.6 10^3/uL (0.1-0.6); Absolute Neutrophils 5.9 10^3/uL (1.4-6.5); Nucleated Red Blood Cells % 2.5 %
--- NOTE | 2024-08-03 08:22 | W.PN.CARDCBS ---
Addendum entered and electronically signed by Pete Blood MD 08/03/24 10:27:
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 Progressive dyspnea on
exertion and exertional chest discomfort over recent months. Previously had dyspnea on exertion only. No acute ST segment changes on electrocardiogram. Hemoglobin typically 10-11, has been going down over the last year, was 9 in February, 8.4 in
April and now 7.4. She reports her heart rate was very erratic and could not be counted the night she came into the hospital. She had GI upset, some diarrhea this morning no chest pain. She states she will be getting blood today. Today she
says she feels considerably better
Medications: IV heparin on hold, Neurontin, hydroxyurea 500 a day, levothyroxine 75 mcg daily, lisinopril 20 mg a day, sertraline 25 daily, iron, atorvastatin 40 mg daily, aspirin 81 mg a day, metoprolol ER 25 twice daily, amlodipine 5 mg daily
146/70, pulse 70, respiratory rate 16, temp is 36.9, sats are 99%, no distress, looks pale, lungs are clear, systolic murmur with extrasystoles, abdomen benign, extremities without clubbing cyanosis or edema, JVD okay, neuro nonfocal, pleasant
EKG today sinus rhythm, nonspecific ST and T changes, PVC
Hemoglobin 7.0, MCV 100, platelets 449, BUN and creatinine are 16 and 1.0, potassium is 4
Impression:
NSTEMI versus non ACS myocardial injury from anemia
Iron deficiency anemia
Essential thrombocytosis, CALR+
Intermittently transfusion dependent, has received erythropoietin analogs
PAF
Plan:
From a cardiac standpoint, she is doing well despite her earlier symptoms of chest discomfort and positive troponin.
However, her hemoglobin continues to drop. At this point I think potential harm with heparin outweighs potential benefit. Will discontinue and not restart at present following EGD. For now, continue aspirin alone.
Agree with transfusion for hemoglobin of 7.0.
If EGD unremarkable, would tentatively plan on cardiac catheterization on Tuesday. Await decision regarding colonoscopy, etc. upper GI after EGD.
Will increase metoprolol ER to 37.5 twice daily
Original Note:
Today's Communication / Plan
-
EGD today
Consider transfusion if any further drop of hemoglobin
Continue heparin drip while off anticoagulation
Continue Toprol, amlodipine, lisinopril, aspirin and statin
Eventual ischemic evaluation pending outcome of EGD
Impression / Plan
-
PCP: Dr. Brian
Card: Dr. Blood
Heme/Onc: Dr. Kearns
Impression:
Admitted with chest pain and elevated Troponin 07/31/24
Chest pain
Elevated troponin, likely NSTEMI, peak Troponin 0.219
h/o abnormal stress test with inferior ischemia, patient opted not to pursue coronary CTA or cath 2021
Newly diagnosed iron deficiency anemia
last colonoscopy 2014
Essential thrombocytosis
previously intolerant to Aranesp due to HYDE
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
h/o transfusion dependent anemia
Paroxysmal Afib
Chronic Eliquis OAC
CKD 3a
HTN
Anaphylactic wheat allergy
Lexiscan nuclear stress test 12/17/2021: Small area of mildly decreased perfusion that is predominantly reversible in the basal inferolateral, basal inferior and mid inferior segments consistent with infarction with residual ischemia, EF 72%
Echo 11/22/2018: EF 55 to 60%, stage I diastolic dysfunction, mild MR, mild to moderate TR with PAP 38 mmHg, normal RV size and function
Echo 08/01/24: EF 60 to 65%, no gross wall motion abnormalities, mild to moderate MR, mild to moderate TR with PAP 59 mmHg
Plan:
-Hemoglobin continues to slowly trend down, noted to be 7.8 on admission now dropped to 7.0 on 08/03/24.
-Had several bowel movements yesterday per nurse they were brown but heme positive
-Low threshold for blood transfusion if hemoglobin less than 7, currently getting series of 5 iron infusions
-Appreciate GI input. Patient to have EGD today, stable from cardiac standpoint to proceed
-Appreciate input from Heme/Onc given h/o essential thrombocytosis and while on hydroxyurea in 06/2022 developed transfusion dependent anemia and when they attempted to stop hydroxyurea she had a splenic infarct so hydroxyurea was restarted and Hgb
has been in the 8s most of the time as monitored by Heme/Onc. Heme/Onc saw patient and started iron infusion 08/01/24.
- Progressive dyspnea on exertion and exertional chest discomfort over recent months prior to admission. Previously had dyspnea on exertion only. Troponin peaked at 0.219. Unclear if ACS versus nonischemic myocardial injury secondary to ongoing
anemia. Ideally cardiac catheterization best modality to define coronary anatomy. Patient now agreeable to proceed with cardiac catheterization when stable and cleared from GI standpoint. Timing will be determined pending outcome of GI workup/EGD
-Amlodipine increased to 5 mg on 08/02/2024 for antianginal benefit and increased Toprol-XL 25 mg to BID on 08/02/24. Continue lisinopril 20 mg daily. Continue to monitor and trend blood pressure
-LDL 66, new to atorvastatin 40 mg daily
-Patient with known paroxysmal Afib and currently in SR.
-Outpatient dose of Eliquis 5 mg BID (age 88, Cre 0.8, wt 68.7 kg) is on hold (last dose 07/31/2024). Continue heparin gtt with ongoing testing/evaluation.
-If patient proceeds with cath and has PCI then she would be triple therapy for 1-4 weeks.
HPI: Patient came to ER last night with complaints of chest pain and was admitted with elevated troponin and cardiology is now consulted. Patient lives independently in her own home and reports that she has had BYRNES and CP for the last several
weeks that is progressive. Patient describes initially having trouble with carrying bags of groceries from her car to her home, then last week after putting a load of laundry and she almost was unable to climb a flight of stairs and finally last
night she had resting CP and SOB in bed and called 911. Initial troponin 0.077 and then peaked at 0.219. Patient has been pain-free since admission. Heparin drip was started. Patient has a history of essential thrombocytosis and had previously
been intolerant to Aranesp due to HYDE. She was then placed on hydroxyurea and developed transfusion dependent anemia. When there was an attempt to hold hydroxyurea she had increased platelet levels and then had left-sided pain and a CT scan
revealed splenic infarct and hydroxyurea was restarted. Patient reports her last transfusion was in April, but none for May or June. Last colonoscopy was in 2014. Now appears to have a new diagnosis of iron deficiency anemia as well.
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
Subjective
Date of Service: August 03, 2024
Patient seen and examined. Patient sitting on edge of bed. Reports several bowel movements yesterday but denies black tarry stools or blood in stools. Some occasional dizziness with quick positional change. Denies chest pain or shortness of
breath.
Objective
Labs:
08/03/24 04:42
08/03/24 04:42
Labs
Hgb 7.0 g/dL (12.0-16.0) L 08/03/24 04:42
Hct 23.8 % (37.0-47.0) L 08/03/24 04:42
Plt Count 449 10^3/uL (130-400) H 08/03/24 04:42
APTT Cancelled 08/03/24 05:00
Sodium 137 mmol/L (135-145) 08/03/24 04:42
Potassium 4.0 mmol/L (3.5-5.1) 08/03/24 04:42
BUN 16 mg/dl (7-17) 08/03/24 04:42
Creatinine 1.0 mg/dL (0.6-1.0) 08/03/24 04:42
Glucose 94 mg/dl (70-99) 08/03/24 04:42
Troponins
08/01/24 08/01/24 08/01/24
00:32 01:09 05:08
Troponin I Cancelled 0.077 H* 0.219 H* D
08/01/24
09:39
Troponin I 0.194 H*
Vital Signs and I&O:
Vital Signs
Temp Pulse Resp BP Pulse Ox
98.5 F 70 16 146/70 99
08/03/24 07:50 08/03/24 08:00 08/03/24 07:50 08/03/24 07:53 08/03/24 07:50
Vital Signs
Temp Pulse Resp BP Pulse Ox
98.5 F 70 16 146/70 99
08/03/24 07:50 08/03/24 08:00 08/03/24 07:50 08/03/24 07:53 08/03/24 07:50
Physical Exam
Physical Exam
GEN: No distress, awake, Ox3, sitting on edge of bed
HEENT: supple, anicteric, mmm
LUNGS: CTA, no wheezes/rales
CV: Reg, S1/S2, no murmur,, rub or gallop
ABD: soft, BS+, NT/ND
EXT: No edema, clubbing or cyanosis
NEURO: Gross non-focal
SKIN: No rash, warm, dry, pink appears paler
--- NOTE | 2024-08-03 08:29 | W.PN.ONC2 ---
Today's Communication / Plan
-
.
Impression
Impression
Iron deficiency anemia, ferritin 10.5
chronic anemia, competent of cytoreduction from hydrea
CALR+ essential thrombocytosis
Right-sided chest discomfort, radiates to back
troponin peak 0.2, possible NSTEMI on heparin gtt
PAF DOAC on hold
History of splenic infarcts
Plan
Plan
continue ferric gluconate x 5 doses
transfuse Hgb <7 or as needed for sxs anemia
plan for EGD
continue Hydrea
defer to cardiology/GI regarding risk/benefit of antiplatelet and anticoagulation
cardiac intervention per cardiology
Subjective/Objective
Subjective
no new complaints
Vital Signs:
Vital Signs
Temp Pulse Resp BP Pulse Ox
98.5 F 70 16 146/70 99
08/03/24 07:50 08/03/24 08:00 08/03/24 07:50 08/03/24 07:53 08/03/24 07:50
Lab Results:
Laboratory Data
WBC 8.3 10^3/uL (4.8-10.8) 08/03/24 04:42
Hgb 7.0 g/dL (12.0-16.0) L 08/03/24 04:42
Plt Count 449 10^3/uL (130-400) H 08/03/24 04:42
APTT Cancelled 08/03/24 05:00
eGFR 54.19 08/03/24 04:42
[2024-08-03] MEDS: LOW STRENGTH ASPIRIN 81 MG PO (08:42)
[2024-08-03] MEDS: TOPROL XL 25 MG PO (08:42)
[2024-08-03] MEDS: NORVASC 5 MG PO (08:42)
[2024-08-03] MEDS: ZESTRIL 20 MG PO (08:42)
[2024-08-03] MEDS: HYDREA 500 MG PO (08:42)
--- NOTE | 2024-08-03 10:58 | W.PN.UPDATE ---
Addendum entered and electronically signed by Kinga Grissom MD 08/03/24 11:04:
added in PPI IV bid but can be switched to po after cath.
diet can be resumed
will sign off call with question
Original Note:
Update Note
Progress Note Update
EGD:
moderate gastritis, biopsied, otherwise normal
colonoscopy in 2020 with several small polyps and left sided diverticulosis
plan:
no contraindication for anticoagulation
needs to be on PPI bid
wouldn't repeat colonoscopy at this time; can proceed with catherization
[2024-08-03] MEDS: PROTONIX IV 40 MG IV ×2 (12:17→20:04)
[2024-08-03] MEDS: NSS (PRESERVATIVE FREE) 10 ML IV ×2 (12:17→20:04)
[2024-08-03] MEDS: ZOLOFT PO (12:18)
--- NOTE | 2024-08-03 12:40 | W.PN.HOSP.TC ---
Today's Communication/Plan
-
Monitor vital signs see plan
Hemoglobin 7 today, transfuse 1 unit PRBC and monitor
Continue with IV iron
EGD today
eventual cath per cardiology pending EGD
Assessment / Plan
Assessment / Plan
General: Well Developed, Well Nourished, Comfortable and Conversant
HEENT: NormoCephalic, Anicteric, Moist mucous membranes, Atraumatic and PERRLA
Respiratory: Clear
Cardiac: S1/S2 and Regular Rhythm; No Murmu
GI: Soft, Non Tender, Non Distended and Normal Bowel Sounds
Musculoskeletal:No Edema
Skin: Warm
Neuro: AO x 3, Nonfocal/grossly intact and Cranial Nerves Intact
Psych: Calm
Chest pain; r/o ACS
possible NSTEMI; trop peaked 0.2
cw hep gtt
echo with preserved EF
cardiology following
Was on heparin drip, now monitor off heparin given low hemoglobin
last dose of Eliquis was at around 9 pm 07/31
-Nitroglycerin as needed chest pain
Eventual cath per cardiology pending EGD
Anemia -microcytic anemia, history of GI bleed, reports iron levels were normal and she had constipation with oral iron supplementation which resulted in hemorrhoidal bleed.
Suspect acute on chronic, slow acute blood loss anemia
KLEVER
started IV iron
heme test stool +
hgb 7 today; consented; transfuse 1 unit prbc and monitor; no brenden bleeding
EGD today 08/03
paroxysmal AFIB
-Continue metoprolol at bedtime for rate control
heparin per cardiology; currently on hold
Hypertension
Continue lisinopril and Norvasc
chronic Thrombocytosis
on hydroxyurea
heme following
DVT prophylaxis�on heparin
CODE STATUS�DNR
I spent a total of 52 minutes with the patient or on the floor. More than 50% of this time involved counseling and coordination of care.
Anticipated Discharge: > 48 hours
Subjective/Interval History
-
Date of Service: August 03, 2024
denies pain
Objective Data
-
Labs:
Laboratory Results
08/03/24 08/03/24
04:42 05:00
WBC 8.3
Hgb 7.0 L
Hct 23.8 L
Plt Count 449 H
APTT Cancelled
Sodium 137
Potassium 4.0
Chloride 107
Carbon Dioxide 24
BUN 16
Creatinine 1.0
Glucose 94
Calcium 8.9
Vital Signs:
Vital Signs
Temp Pulse Resp BP Pulse Ox
97.8 F 73 20 150/56 96
08/03/24 12:20 08/03/24 12:20 08/03/24 12:20 08/03/24 12:20 08/03/24 11:28
I&O
08/02/24 08/03/24 08/04/24
06:59 06:59 06:59
Intake Total 0 / 0
Balance 0 / 0
--- NOTE | 2024-08-03 13:45 | CM ---
CM following for DC planning needs.
Met w/ patient at bedside. Pt. reports that she is feeling well and is anticipating CATH procedure on Tuesday.
I have noted PT evaluation recommending home health. We discussed this. Pt. would consider this. We agreed to follow up on Tuesday post CATH.
Would benefit from continued PT evaluation to maximize functional mobility.
Antic. home w/ home-care. Will follow.
[2024-08-03] MEDS: FERRLECIT 110 MG IV (15:29)
[2024-08-03] MEDS: FLUSH (NSS) 2 FLUSH IV (15:58)
--- NOTE | 2024-08-03 16:07 | PTCARENOTE ---
I unit of PRBCs transfused, no adverse reactions noted, patient tolerated transfusion well.
[2024-08-03] MEDS: LIPITOR 40 MG PO (17:33)
--- NOTE | 2024-08-03 20:00 | PTCARENOTE ---
Assumed care of pt from dayshift. Pt denies CP or any discomfort. VSS. SR on tele , occasional PACs. Call don within reach.
[2024-08-03] MEDS: TOPROL XL 37.5 MG PO (20:03)
[2024-08-03] MEDS: NEURONTIN 300 MG PO (20:08)
[2024-08-04] VITALS (7 sets, daily range): BP systolic 135–173; BP diastolic 57–93; BMI 25.8
[2024-08-04] MEDS: SYNTHROID 75 MCG PO (05:40)
[2024-08-04 06:09] LABS: Hematocrit 29.1 % (37.0-47.0); Hemoglobin 8.9 g/dL (12.0-16.0); Mean Corp Hgb Conc. 30.6 g/dL (33.0-37.0); Mean Corpuscular Hgb 29.7 pg (27.0-31.0); Mean Platelet Volume 10.8 fL (7.4-10.4); Platelet Count 405 10^3/uL (130-400); Red Cell Dist. Width 18.5 % (11.5-14.5); White Blood Cell Count 7.4 10^3/uL (4.8-10.8)
[2024-08-04 06:11] LABS: Blood Urea Nitrogen 15 mg/dl (7-17); Calcium 8.7 mg/dl (8.4-10.2); Carbon Dioxide 24 mmol/L (22-30); Chloride 105 mmol/L (98-107); Estimated Creatinine Clearance 28 ml/min; Glucose 100 mg/dl (70-99); Sodium 136 mmol/L (135-145); eGFR 43.54
[2024-08-04 06:17] LABS: Potassium 3.9 mmol/L (3.5-5.1)
--- NOTE | 2024-08-04 06:42 | W.PN.HOSP.TC ---
Today's Communication/Plan
-
Can start AC if ok with cardiology
Plan Cath on Tuesday
c/w PPI
Assessment / Plan
Assessment / Plan
Physical exam:
General: Well Developed, Well Nourished, Comfortable and Conversant
HEENT: NormoCephalic, Anicteric, Moist mucous membranes, Atraumatic and PERRLA
Respiratory: Clear
Cardiac: S1/S2.
GI: Soft, Non Tender, Non Distended and Normal Bowel Sounds
Musculoskeletal:No Edema
Skin: Warm
Neuro: AO x 3, Nonfocal/grossly intact and Cranial Nerves Intact
Psych: Calm
# Chest pain; r/o ACS
NSTEMI versus non ACS myocardial injury from anemia trop peaked 0.2
cw hep gtt
echo with preserved EF
cardiology following
Was on heparin drip, now monitor off heparin given low hemoglobin
last dose of Eliquis was at around 9 pm /
-Nitroglycerin as needed chest pain
per cardiology: tentatively plan on cardiac catheterization on Tuesday. Await decision regarding colonoscopy, etc. upper GI after EGD.
# Anemia -microcytic anemia, history of GI bleed, reports iron levels were normal and she had constipation with oral iron supplementation which resulted in hemorrhoidal bleed.
Suspect acute on chronic, slow acute blood loss anemia
KLEVER
started IV iron
heme test stool +
hgb 8.9
s/p 1 unit prbc and monitor; no brenden bleeding
EGD showed nonobstructing Schatzki ring, gastritis, normal duodenum. GI recommended PPI twice a day with no contraindication for anticoagulation.
#Paroxysmal AFIB
-Continue metoprolol at bedtime for rate control
heparin per cardiology; currently on hold
#Essential hypertension
Continue lisinopril and Norvasc
#Chronic Thrombocytosis
History of splenic infarcts
on hydroxyurea
heme following
DVT prophylaxis�on heparin
CODE STATUS�DNR
Total time spent to see the patient, examine the patient, review data and lab results, discuss treatment plan with patient and nursing staff around 55 minutes
Anticipated Discharge: > 48 hours
Subjective/Interval History
-
Date of Service: August 04, 2024
No chest pain
No sob
No fevers
Objective Data
-
Labs:
Laboratory Results
08/04/24
05:35
WBC 7.4
Hgb 8.9 L D
Hct 29.1 L
Plt Count 405 H
Sodium 136
Potassium 3.9
Chloride 105
Carbon Dioxide 24
BUN 15
Creatinine 1.2 H
Glucose 100 H
Calcium 8.7
Vital Signs:
Vital Signs
Temp Pulse Resp BP Pulse Ox
98.3 F 75 18 135/93 94
08/04/24 04:00 08/04/24 05:28 08/04/24 04:00 08/04/24 05:28 08/04/24 05:28
I&O
08/02/24 08/03/24 08/04/24
06:59 06:59 06:59
Intake Total 610 / 610
Balance 610 / 610
[2024-08-04 08:25] LABS: % Basophils 1.7 % (0-2); % Eosinophils 0.8 % (0-6); % Lymphocytes 8.2 % (20.5-51.1); % Monocytes 7.5 % (1.7-9.3); % Neutrophils 74.8 % (42.2-75.2); Absolute Basophils 0.1 10^3/uL (0-0.2); Absolute Eosinophils 0.1 10^3/uL (0-0.7); Absolute Immature Granulocytes 0.5 10^3/uL (0-0.05); Absolute Lymphocytes 0.6 10^3/uL (1.2-3.4); Absolute Monocytes 0.6 10^3/uL (0.1-0.6); Absolute Neutrophils 5.6 10^3/uL (1.4-6.5); Nucleated Red Blood Cells % 3.8 %
[2024-08-04] MEDS: TOPROL XL 37.5 MG PO ×2 (08:45→19:37)
[2024-08-04] MEDS: ZOLOFT 25 MG PO (08:46)
[2024-08-04] MEDS: LOW STRENGTH ASPIRIN 81 MG PO (08:46)
[2024-08-04] MEDS: HYDREA 500 MG PO (08:47)
[2024-08-04] MEDS: NORVASC 5 MG PO (08:47)
[2024-08-04] MEDS: PROTONIX IV 40 MG IV ×2 (08:48→19:37)
[2024-08-04] MEDS: NSS (PRESERVATIVE FREE) 10 ML IV ×2 (08:50→19:38)
--- NOTE | 2024-08-04 10:28 | PTCARENOTE ---
Rec'd Pt 0845, A,A+O x3, offers no complaints, denies pain. Pt sat OOB in chair for breakfast
[2024-08-04] MEDS: ZESTRIL 20 MG PO (10:39)
--- NOTE | 2024-08-04 13:25 | W.PN.CARDCBS ---
Today's Communication / Plan
-
Add Imdur
Hold IV heparin for now.
Continue ASA
Monitor CBC
Plan for stress test next week
Impression / Plan
-
PCP: Dr. Brian
Card: Dr. Blood
Heme/Onc: Dr. Kearns
Impression:
Admitted with chest pain and elevated Troponin 07/31/24
Elevated troponin, likely NSTEMI, peak Troponin 0.219
h/o abnormal stress test 2021, patient opted not to pursue coronary CTA or cath 2021
Newly diagnosed iron deficiency anemia
last colonoscopy 2014
Essential thrombocytosis
previously intolerant to Aranesp due to HYDE
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
h/o transfusion dependent anemia
Paroxysmal Afib
Chronic Eliquis OAC
CKD 3a
HTN
Anaphylactic wheat allergy
Lexiscan nuclear stress test 12/17/2021: Small area of mildly decreased perfusion that is predominantly reversible in the basal inferolateral, basal inferior and mid inferior segments consistent with infarction with residual ischemia, EF 72%
Echo 11/22/2018: EF 55 to 60%, stage I diastolic dysfunction, mild MR, mild to moderate TR with PAP 38 mmHg, normal RV size and function
Echo 08/01/24: EF 60 to 65%, no gross wall motion abnormalities, mild to moderate MR, mild to moderate TR with PAP 59 mmHg
Plan:
Coronary atherosclerosis by noncardiac CT imaging presented with chest pain and abnormal troponin consistent with NSTEMI in the setting of marked anemia
-2D echocardiogram with normal biventricular size and systolic function and no gross regional wall motion abnormality
-Her abnormal stress test was from 2021 which was personally reviewed. Study is complicated by prominent subdiaphragmatic tracer uptake adjacent to the inferior wall there is a inferior, inferolateral defect that largely improves in prone imaging.
-She remains chest pain-free
-Hemoglobin has improved following transfusion now receiving IV iron.
-There has been some discussion about proceeding with a left heart catheterization however I would like to discuss further with hematology given ongoing anemia requiring transfusions and higher risk of bleeding as she would require dual antiplatelet
therapy likely in the form of Plavix and Eliquis
-I am leaning towards a repeat stress test as initial steps and plan for a Lexiscan PET/CT stress test, possibly on Tuesday [discussed with her usual aeronautical research engineer Dr. Blood who is in agreement with plan]
-For now, continue aspirin 81 mg daily. Will not plan to restart IV heparin today
-Continue to optimize medical therapy for goal normotension
-Continue metoprolol succinate 37.5mg BID. Continue amlodipine 5 mg daily.
-Will add Imdur 30 mg daily
-Continue lisinopril however will hold tomorrow pending labs given increased creatinine
-Continue atorvastatin. LDL 08/01/24 was 66.
-Eventually could consider addition of SGLT2 inhibitor which we will hold off for now given increased creatinine
Acute on chronic iron deficient/blood loss anemia requiring transfusion/heme positive stool
-Appreciate otology and GI input
-Patient had EGD which found a nonobstructing Schatzki ring at the GE junction and gastritis that was biopsied. Plan to continue PPI twice daily but per GI standpoint no contraindication for anticoagulation and no plan to proceed with colonoscopy.
-IV iron started 08/01/2024
-PPI twice daily
-Monitor CBC closely
Acute renal insufficiency with creatinine today 1.2
-Will hold lisinopril tomorrow as it was already given and avoid nephrotoxic agents
-Continue to monitor
History of paroxysmal atrial fibrillation currently in this rhythm
-Outpatient dose of Eliquis 5 mg BID currently held (age 88, Cre 0.8, wt 68.7 kg) is on hold (last dose 07/31/2024).
Will follow with you.
HPI: Patient came to ER last night with complaints of chest pain and was admitted with elevated troponin and cardiology is now consulted. Patient lives independently in her own home and reports that she has had BYRNES and CP for the last several
weeks that is progressive. Patient describes initially having trouble with carrying bags of groceries from her car to her home, then last week after putting a load of laundry and she almost was unable to climb a flight of stairs and finally last
night she had resting CP and SOB in bed and called 911. Initial troponin 0.077 and then peaked at 0.219. Patient has been pain-free since admission. Heparin drip was started. Patient has a history of essential thrombocytosis and had previously
been intolerant to Aranesp due to HYDE. She was then placed on hydroxyurea and developed transfusion dependent anemia. When there was an attempt to hold hydroxyurea she had increased platelet levels and then had left-sided pain and a CT scan
revealed splenic infarct and hydroxyurea was restarted. Patient reports her last transfusion was in April, but none for May or June. Last colonoscopy was in 2014. Now appears to have a new diagnosis of iron deficiency anemia as well.
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
Subjective
Date of Service: August 04, 2024
Patient seen and examined. Chart, studies, labs, testing, telemetry reviewed. She is feeling overall better and denies chest pain or pressure. No abdominal pain or nausea. Denies shortness of breath but states states that while in the hospital
she has been restricted to minimal activity which would not elicit any symptoms.
Objective
Labs:
08/04/24 05:35
08/04/24 05:35
Labs
Hgb 8.9 g/dL (12.0-16.0) L D 08/04/24 05:35
Hct 29.1 % (37.0-47.0) L 08/04/24 05:35
Plt Count 405 10^3/uL (130-400) H 08/04/24 05:35
APTT Cancelled 08/03/24 05:00
Sodium 136 mmol/L (135-145) 08/04/24 05:35
Potassium 3.9 mmol/L (3.5-5.1) 08/04/24 05:35
BUN 15 mg/dl (7-17) 08/04/24 05:35
Creatinine 1.2 mg/dL (0.6-1.0) H 08/04/24 05:35
Glucose 100 mg/dl (70-99) H 08/04/24 05:35
Vital Signs and I&O:
Vital Signs
Temp Pulse Resp BP Pulse Ox
97.9 F 64 16 142/63 95
08/04/24 11:41 08/04/24 08:45 08/04/24 11:41 08/04/24 08:45 08/04/24 11:41
Vital Signs
Temp Pulse Resp BP Pulse Ox
97.9 F 64 16 142/63 95
08/04/24 11:41 08/04/24 08:45 08/04/24 11:41 08/04/24 08:45 08/04/24 11:41
Intake & Output
08/02/24 08/03/24 08/04/24 08/05/24
06:59 06:59 06:59 07:59
Intake Total 610 / 610
Balance 610 / 610
Physical Exam
Physical Exam
GEN: No distress, awake, Ox3, sitting on edge of bed
HEENT: mmm
LUNGS: CTA, no wheezes/rales
CV: Reg, S1/S2, no murmur
ABD: soft, BS+, NT/ND
EXT: no edema
NEURO: Gross non-focal
[2024-08-04] MEDS: FERRLECIT 110 MG IV (14:10)
[2024-08-04] MEDS: LIPITOR 40 MG PO (17:48)
[2024-08-04] MEDS: NEURONTIN 300 MG PO (20:32)
[2024-08-05] VITALS (9 sets, daily range): BP systolic 122–163; BP diastolic 45–71; BMI 25.8
[2024-08-05] MEDS: SYNTHROID 75 MCG PO (05:17)
[2024-08-05 06:06] LABS: Blood Urea Nitrogen 17 mg/dl (7-17); Calcium 8.9 mg/dl (8.4-10.2); Carbon Dioxide 27 mmol/L (22-30); Chloride 103 mmol/L (98-107); Estimated Creatinine Clearance 31 ml/min; Glucose 106 mg/dl (70-99); Potassium 3.9 mmol/L (3.5-5.1); Sodium 137 mmol/L (135-145); eGFR 48.33
--- NOTE | 2024-08-05 06:43 | W.PN.HOSP.TC ---
Addendum entered and electronically signed by Nery Moody MD 08/05/24 12:35:
Addendum
Pt reported nausea, will give PRN IV Zofran
End
Original Note:
Today's Communication/Plan
-
Plan for stress test then discharge
c/w IV Iron while in hospital
Assessment / Plan
Assessment / Plan
Physical exam:
General: Well Developed, Well Nourished, Comfortable and Conversant
HEENT: NormoCephalic, Anicteric, Moist mucous membranes, Atraumatic and PERRLA
Respiratory: Clear
Cardiac: S1/S2.
GI: Soft, Non Tender, Non Distended and Normal Bowel Sounds
Musculoskeletal:No Edema
Skin: Warm
Neuro: AO x 3, Nonfocal/grossly intact and Cranial Nerves Intact
Psych: Calm
# Chest pain; r/o ACS
NSTEMI versus non ACS myocardial injury from anemia trop peaked 0.2
s/p hep gtt
Added low dose Imdur
echo with preserved EF
cardiology following
Was on heparin drip, off now
last dose of Eliquis was at around 9 pm 3/
-Nitroglycerin as needed chest pain
per cardiology: tentatively plan on cardiac catheterization on Tuesday. Await decision regarding colonoscopy, etc. upper GI after EGD.
# Anemia -microcytic anemia, history of GI bleed, reports iron levels were normal and she had constipation with oral iron supplementation which resulted in hemorrhoidal bleed.
Suspect acute on chronic, slow acute blood loss anemia
KLEVER
started IV iron
heme test stool +
hgb 9.4 today
s/p 1 unit prbc and monitor; no brenden bleeding
EGD showed nonobstructing Schatzki ring, gastritis, normal duodenum. GI recommended PPI twice a day with no contraindication for anticoagulation.
# Hanh
improving
#Paroxysmal AFIB
-Continue metoprolol at bedtime for rate control
heparin per cardiology; currently on hold
#Essential hypertension
slightly uncontrolled
added Imdur
c/w BB, lisinopril and Norvasc
#Chronic Thrombocytosis
History of splenic infarcts
on hydroxyurea
heme following
DVT prophylaxis�on heparin
CODE STATUS�DNR
Total time spent to see the patient, examine the patient, review data and lab results, discuss treatment plan with patient and nursing staff around 55 minutes
Anticipated Discharge: > 48 hours
Subjective/Interval History
-
Date of Service: August 05, 2024
No chest pain
No sob over night
No abdominal pain or nausea
Objective Data
-
Labs:
Laboratory Results
08/05/24
05:41
WBC Pending
Hgb Pending
Hct Pending
Plt Count Pending
Sodium 137
Potassium 3.9
Chloride 103
Carbon Dioxide 27
BUN 17
Creatinine 1.1 H
Glucose 106 H
Calcium 8.9
Vital Signs:
Vital Signs
Temp Pulse Resp BP Pulse Ox
98.9 F 67 16 142/45 96
08/05/24 05:08 08/05/24 05:08 08/05/24 05:08 08/05/24 05:05 08/05/24 05:08
I&O
08/03/24 08/04/24 08/05/24
06:59 06:59 07:59
Intake Total 610 / 610 240 / 240
Balance 610 / 610 240 / 240
[2024-08-05 08:23] LABS: % Basophils 1.8 % (0-2); % Eosinophils 0.7 % (0-6); % Immature Granulocytes 8.3 % (0-0.5); % Lymphocytes 9.5 % (20.5-51.1); % Monocytes 6.7 % (1.7-9.3); Absolute Basophils 0.2 10^3/uL (0-0.2); Absolute Eosinophils 0.1 10^3/uL (0-0.7); Absolute Immature Granulocytes 0.7 10^3/uL (0-0.05); Absolute Lymphocytes 0.8 10^3/uL (1.2-3.4); Absolute Monocytes 0.6 10^3/uL (0.1-0.6); Absolute Neutrophils 6.2 10^3/uL (1.4-6.5); Hematocrit 30.9 % (37.0-47.0); Hemoglobin 9.4 g/dL (12.0-16.0); Mean Corp Hgb Conc. 30.4 g/dL (33.0-37.0); Mean Corpuscular Volume 98.7 fL (81.0-99.0); Mean Platelet Volume 10.3 fL (7.4-10.4); Nucleated Red Blood Cells % 1.6 %; Platelet Count 402 10^3/uL (130-400); Red Blood Cell Count 3.13 10^6/uL (4.20-5.40); Red Cell Dist. Width 18.6 % (11.5-14.5); White Blood Cell Count 8.5 10^3/uL (4.8-10.8)
[2024-08-05] MEDS: LOW STRENGTH ASPIRIN 81 MG PO (09:18)
[2024-08-05] MEDS: IMDUR (EXTENDED RELEASE) 30 MG PO (09:20)
[2024-08-05] MEDS: NORVASC 5 MG PO (09:20)
[2024-08-05] MEDS: TOPROL XL 37.5 MG PO ×2 (09:20→20:16)
[2024-08-05] MEDS: ZESTRIL 20 MG PO (09:21)
[2024-08-05] MEDS: ZOLOFT PO ×2 (09:21→09:29)
[2024-08-05] MEDS: PROTONIX IV 40 MG IV ×2 (09:21→20:16)
[2024-08-05] MEDS: NSS (PRESERVATIVE FREE) 10 ML IV ×2 (09:21→20:16)
[2024-08-05] MEDS: HYDREA 500 MG PO (09:22)
[2024-08-05] MEDS: TYLENOL 650 MG PO (09:35)
--- NOTE | 2024-08-05 10:54 | W.PN.CARDCBS ---
Addendum entered and electronically signed by Renee Ponce DO 08/05/24 11:03:
Left message on machine for patient's son Carl to give an update
Original Note:
Today's Communication / Plan
-
N.p.o. after midnight while we determine type and timing of stress test next week
Impression / Plan
-
PCP: Dr. Brian
Card: Dr. Blood
Heme/Onc: Dr. Kearns
Impression:
Admitted with chest pain and elevated Troponin 07/31/24
Elevated troponin, likely NSTEMI, peak Troponin 0.219
h/o abnormal stress test 2021, patient opted not to pursue coronary CTA or cath 2021
Newly diagnosed iron deficiency anemia
last colonoscopy 2014
Essential thrombocytosis
previously intolerant to Aranesp due to HYDE
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
h/o transfusion dependent anemia
Paroxysmal Afib
Chronic Eliquis OAC
CKD 3a
HTN
Anaphylactic wheat allergy
Lexiscan nuclear stress test 12/17/2021: Small area of mildly decreased perfusion that is predominantly reversible in the basal inferolateral, basal inferior and mid inferior segments consistent with infarction with residual ischemia, EF 72%
Echo 11/22/2018: EF 55 to 60%, stage I diastolic dysfunction, mild MR, mild to moderate TR with PAP 38 mmHg, normal RV size and function
Echo 08/01/24: EF 60 to 65%, no gross wall motion abnormalities, mild to moderate MR, mild to moderate TR with PAP 59 mmHg
Plan:
Coronary atherosclerosis by noncardiac CT imaging presented with chest pain and abnormal troponin consistent with NSTEMI in the setting of marked anemia
-2D echocardiogram with normal biventricular size and systolic function and no gross regional wall motion abnormality
-Her abnormal stress test was from 2021 which was personally reviewed. Study is complicated by prominent subdiaphragmatic tracer uptake adjacent to the inferior wall there is a inferior, inferolateral defect that largely improves in prone imaging.
-She remains chest pain-free
-Hemoglobin has improved following transfusion now receiving IV iron.
-There has been some discussion about proceeding with a left heart catheterization however given history of ongoing anemia requiring transfusions she has higher bleed risk for dual antiplatelet therapy and would need to establish that she can
tolerate. We will not be proceeding with left heart catheterization on 08/06/2024.
-Will plan for repeat Lexiscan stress test and I have made her n.p.o.; I would prefer to do a Lexiscan PET/CT stress test which is typically only done on Tuesdays however if this is not possible we can proceed with a Lexiscan nuclear stress test on
Tuesday.
-For now, continue aspirin 81 mg daily.
-Continue to optimize medical therapy for goal normotension
-Continue metoprolol succinate 37.5mg BID. Continue amlodipine 5 mg daily.
-Add Imdur 30 mg daily 08/05/24
-Outpatient lisinopril held for increased creatinine to 1.2 which is improved today to 1.1. Will hold today and if able resume renal function has normalized
-Continue atorvastatin. LDL 08/01/24 was 66.
-Eventually could consider addition of SGLT2 inhibitor which we will hold off for now given increased creatinine
Acute on chronic iron deficient/blood loss anemia requiring transfusion/heme positive stool
-Appreciate otology and GI input
-Patient had EGD which found a nonobstructing Schatzki ring at the GE junction and gastritis that was biopsied. Plan to continue PPI twice daily but per GI standpoint no contraindication for anticoagulation and no plan to proceed with colonoscopy.
-IV iron started 08/01/2024
-PPI twice daily
-Monitor CBC closely
Acute renal insufficiency
-Creatinine bumped to 1.213 2024 slightly better today at 1.1 after holding lisinopril
-Will hold lisinopril today and avoid nephrotoxic agents
-Continue to monitor
History of paroxysmal atrial fibrillation currently in this rhythm
-Outpatient dose of Eliquis 5 mg BID currently held (age 88, Cre 0.8, wt 68.7 kg) is on hold (last dose 07/31/2024).
-Pending stress test results, if no plan for cardiac catheterization will resume Eliquis and monitor hemoglobin
Will follow with you.
HPI: Patient came to ER last night with complaints of chest pain and was admitted with elevated troponin and cardiology is now consulted. Patient lives independently in her own home and reports that she has had BYRNES and CP for the last several
weeks that is progressive. Patient describes initially having trouble with carrying bags of groceries from her car to her home, then last week after putting a load of laundry and she almost was unable to climb a flight of stairs and finally last
night she had resting CP and SOB in bed and called 911. Initial troponin 0.077 and then peaked at 0.219. Patient has been pain-free since admission. Heparin drip was started. Patient has a history of essential thrombocytosis and had previously
been intolerant to Aranesp due to HYDE. She was then placed on hydroxyurea and developed transfusion dependent anemia. When there was an attempt to hold hydroxyurea she had increased platelet levels and then had left-sided pain and a CT scan
revealed splenic infarct and hydroxyurea was restarted. Patient reports her last transfusion was in April, but none for May or June. Last colonoscopy was in 2014. Now appears to have a new diagnosis of iron deficiency anemia as well.
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
Subjective
Date of Service: August 05, 2024
Seen and examined. Patient overall feels well and denies shortness of breath at rest. No chest pain or pressure.
Objective
Labs:
08/05/24 05:41
08/05/24 05:41
Labs
Hgb 9.4 g/dL (12.0-16.0) L 08/05/24 05:41
Hct 30.9 % (37.0-47.0) L 08/05/24 05:41
Plt Count 402 10^3/uL (130-400) H 08/05/24 05:41
APTT Cancelled 08/03/24 05:00
Sodium 137 mmol/L (135-145) 08/05/24 05:41
Potassium 3.9 mmol/L (3.5-5.1) 08/05/24 05:41
BUN 17 mg/dl (7-17) 08/05/24 05:41
Creatinine 1.1 mg/dL (0.6-1.0) H 08/05/24 05:41
Glucose 106 mg/dl (70-99) H 08/05/24 05:41
Vital Signs and I&O:
Vital Signs
Temp Pulse Resp BP Pulse Ox
98.1 F 66 18 152/64 95
08/05/24 08:17 08/05/24 09:20 08/05/24 08:17 08/05/24 09:20 08/05/24 08:17
Vital Signs
Temp Pulse Resp BP Pulse Ox
98.1 F 66 18 152/64 95
08/05/24 08:17 08/05/24 09:20 08/05/24 08:17 08/05/24 09:20 08/05/24 08:17
Intake & Output
08/03/24 08/04/24 08/05/24 08/06/24
05:59 05:59 06:59 06:59
Intake Total
Balance
Physical Exam
Physical Exam
GEN: No distress, awake, Ox3, sitting on edge of bed
HEENT: mmm
LUNGS: CTA, no wheezes/rales
CV: Reg, S1/S2, no murmur
ABD: soft, BS+, NT/ND
EXT: no edema
NEURO: Gross non-focal
[2024-08-05] MEDS: ZOFRAN 4 MG IV (13:31)
[2024-08-05] MEDS: FERRLECIT 110 MG IV (13:35)
--- NOTE | 2024-08-05 13:55 | PTCARENOTE ---
pt c/o of nausea, notified arnel rosado given as ordered, see MAR. Pt found relief. pt sitting oob and tolerating well. pt continues to be sr on the monitor, vss. pt offers no other c/o at this time. call don within reach.
[2024-08-05] MEDS: LIPITOR 40 MG PO (17:23)
[2024-08-05] MEDS: NEURONTIN 300 MG PO (22:21)
--- NOTE | 2024-08-05 22:26 | PTCARENOTE ---
Received patient at change of shift. SR on the monitor, HR in the 60s. Infromed pt of NPO after midnight, pt verbalizes understanding. No complaints from pt at this time, call don within reach.
[2024-08-06 04:09] VITALS: BP 145/76
[2024-08-06 05:25] LABS: Hematocrit 27.8 % (37.0-47.0); Hemoglobin 8.7 g/dL (12.0-16.0); Mean Corp Hgb Conc. 31.3 g/dL (33.0-37.0); Mean Corpuscular Volume 98.9 fL (81.0-99.0); Mean Platelet Volume 11.2 fL (7.4-10.4); Platelet Count 392 10^3/uL (130-400); Red Blood Cell Count 2.81 10^6/uL (4.20-5.40); Red Cell Dist. Width 18.8 % (11.5-14.5)
[2024-08-06 05:50] LABS: Blood Urea Nitrogen 18 mg/dl (7-17); Calcium 8.7 mg/dl (8.4-10.2); Carbon Dioxide 24 mmol/L (22-30); Chloride 103 mmol/L (98-107); Estimated Creatinine Clearance 31 ml/min; Glucose 109 mg/dl (70-99); Potassium 3.8 mmol/L (3.5-5.1); Sodium 136 mmol/L (135-145); eGFR 48.33
[2024-08-06] MEDS: SYNTHROID 75 MCG PO (06:08)
[2024-08-06 07:52] VITALS: BP 117/53
[2024-08-06] MEDS: IMDUR (EXTENDED RELEASE) 30 MG PO (08:52)
[2024-08-06] MEDS: TOPROL XL 37.5 MG PO (08:52)
[2024-08-06] MEDS: HYDREA 500 MG PO (08:52)
[2024-08-06] MEDS: NORVASC 5 MG PO (08:52)
[2024-08-06] MEDS: PROTONIX IV 40 MG IV (08:53)
[2024-08-06] MEDS: NSS (PRESERVATIVE FREE) 10 ML IV (08:55)
[2024-08-06] MEDS: LOW STRENGTH ASPIRIN 81 MG PO (08:56)
[2024-08-06] MEDS: ZOLOFT PO (08:56)
[2024-08-06] MEDS: ZESTRIL 20 MG PO (09:00)
--- NOTE | 2024-08-06 10:21 | W.PN.CARDCBS ---
Addendum entered and electronically signed by Pete Blood MD 08/06/24 11:03:
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 Progressive dyspnea on
exertion and exertional chest discomfort over recent months. Previously had dyspnea on exertion only. No acute ST segment changes on electrocardiogram. Hemoglobin typically 10-11, has been going down over the last year, was 9 in February, 8.4 in
April and now 7.4. She reports her heart rate was very erratic and could not be counted the night she came into the hospital.
Meds reviewed
145/76, pulse 60, respiratory rate 16, afebrile, no distress, lungs are clear, systolic murmur, JVD okay, no edema, abdomen benign, neuro, musculoskeletal all intact, somewhat tangential
Hemoglobin 8.7, had been 9.4, 8.9, 7.0, BUN and creatinine 18 and 1.1, potassium 3.8
Impression:
See below
Plan:
Initial strategy had been for cardiac catheterization, but currently catheterization has been canceled and patient is scheduled for rubidium PET/CT scan.
I previously had concerns regarding fall risk and anticoagulation, and now patient has iron deficiency anemia. Will not discharge on Eliquis but we will arrange for 2-week monitor after PET/CT is performed. Thereafter we will apply a 2-week
monitor.
No objections to discharge from cardiac standpoint.
Recommended cardiac meds at discharge:
Lisinopril 20 mg a day
Atorvastatin 40 mg daily
Aspirin 81 mg daily
Amlodipine 5 mg daily
Metoprolol ER 37.5 mg twice daily
Isosorbide mononitrate 30 mg daily
We will arrange for cardiac follow-up
Original Note:
Today's Communication / Plan
-
Working on scheduling an outpatient PET stress test tomorrow vs next Tuesday
55 min coordinating care and talking with patient
Impression / Plan
-
PCP: Dr. Brian
Card: Dr. Blood
Heme/Onc: Dr. Kearns
Impression:
Admitted with chest pain and elevated Troponin 07/31/24
Elevated troponin, likely NSTEMI, peak Troponin 0.219
h/o abnormal stress test 2021, patient opted not to pursue coronary CTA or cath 2021
Newly diagnosed iron deficiency anemia
last colonoscopy 2014
Essential thrombocytosis
previously intolerant to Aranesp due to HYDE
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
h/o transfusion dependent anemia
Paroxysmal Afib
Chronic Eliquis OAC
CKD 3a
HTN
Anaphylactic wheat allergy
Lexiscan nuclear stress test 12/17/2021: Small area of mildly decreased perfusion that is predominantly reversible in the basal inferolateral, basal inferior and mid inferior segments consistent with infarction with residual ischemia, EF 72%
Echo 11/22/2018: EF 55 to 60%, stage I diastolic dysfunction, mild MR, mild to moderate TR with PAP 38 mmHg, normal RV size and function
Echo 08/01/24: EF 60 to 65%, no gross wall motion abnormalities, mild to moderate MR, mild to moderate TR with PAP 59 mmHg
Plan:
-Crescendo angina for weeks leading up to admission and then USA on admission. Troponin peaked at 0.219 and patient has been managed as a NSTEMI. Decision to proceed with cath complicated by chronic anemia related to hydroxyurea for essential
thrombocytosis and also new iron deficiency anemia. Patient had upper endoscopy 08/03/24 with gastritis and erosions. Patient has been pain free since admission.
-Patient was given 1 unit PRBCs on admission and Hgb drifted down while on Heparin gtt. Heparin gtt stopped and Hgb stable at 8.7 on 08/06/24. Will not pursue cardiac cath this admission and instead schedule an outpatient PET stress test. Test
ordered by me and auth obtained 08/06/24. Await word from PET scheduling if patient can be done 08/07/24 vs 08/14/24.
-For now continue aspirin 81 mg daily which was new this admission
-Also new to Imdur ER 30 mg daily this admission
-Continue outpatient dose of amlodipine 2.5 mg daily
-Increased outpatient dose of Toprol-XL 37.5 mg to BID this admission
-Continue outpatient dose of lisinopril 20 mg daily
-LDL 66, new to atorvastatin 40 mg daily
-GI has signed off and patient should continue PPI upon d/c
-Outpatient dose of Eliquis has been stopped and no plans to resume.
-Patient with known paroxysmal Afib and has been in SR this admission. Will arrange for a 14 day CAM monitor to look for Afib burden.
HPI: Patient came to ER last night with complaints of chest pain and was admitted with elevated troponin and cardiology is now consulted. Patient lives independently in her own home and reports that she has had BYRNES and CP for the last several
weeks that is progressive. Patient describes initially having trouble with carrying bags of groceries from her car to her home, then last week after putting a load of laundry and she almost was unable to climb a flight of stairs and finally last
night she had resting CP and SOB in bed and called 911. Initial troponin 0.077 and then peaked at 0.219. Patient has been pain-free since admission. Heparin drip was started. Patient has a history of essential thrombocytosis and had previously
been intolerant to Aranesp due to HYDE. She was then placed on hydroxyurea and developed transfusion dependent anemia. When there was an attempt to hold hydroxyurea she had increased platelet levels and then had left-sided pain and a CT scan
revealed splenic infarct and hydroxyurea was restarted. Patient reports her last transfusion was in April, but none for May or June. Last colonoscopy was in 2014. Now appears to have a new diagnosis of iron deficiency anemia as well.
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
Subjective
Date of Service: August 06, 2024
Feels well, no chest pain
Objective
Labs:
08/06/24 04:18
08/06/24 04:18
Labs
Hgb 8.7 g/dL (12.0-16.0) L 08/06/24 04:18
Hct 27.8 % (37.0-47.0) L 08/06/24 04:18
Plt Count 392 10^3/uL (130-400) 08/06/24 04:18
APTT Cancelled 08/03/24 05:00
Sodium 136 mmol/L (135-145) 08/06/24 04:18
Potassium 3.8 mmol/L (3.5-5.1) 08/06/24 04:18
BUN 18 mg/dl (7-17) H 08/06/24 04:18
Creatinine 1.1 mg/dL (0.6-1.0) H 08/06/24 04:18
Glucose 109 mg/dl (70-99) H 08/06/24 04:18
Vital Signs and I&O:
Vital Signs
Temp Pulse Resp BP Pulse Ox
98.2 F 64 16 117/53 96
08/06/24 07:52 08/06/24 08:52 08/06/24 07:52 08/06/24 08:52 08/06/24 07:52
Vital Signs
Temp Pulse Resp BP Pulse Ox
98.2 F 64 16 117/53 96
08/06/24 07:52 08/06/24 08:52 08/06/24 07:52 08/06/24 08:52 08/06/24 07:52
Intake & Output
08/04/24 08/05/24 08/06/24 08/07/24
05:59 06:59 06:59 06:59
Intake Total 480 / 480
Balance 480 / 480
Physical Exam
Physical Exam
GEN: NAD, AAOx3
HEENT: MMM
LUNGS: RA. No wheeze
CV: SR on tele.
ABD: ND
EXT: No edema B/L
NEURO: Gross non-focal
SKIN: No rash
--- NOTE | 2024-08-06 10:22 | W.PN.ONC2 ---
Addendum entered and electronically signed by Padmini Kearns MD 08/06/24 13:55:
Please ignore statement below, entered on wrong pt.
For Delia Farooq:
Continue Hydrea 500 mg daily and baby aspirin 81 mg daily
Q2w CBC
Follow up with me in 8-10 weeks, our office staff will arrange.
Original Note:
Today's Communication / Plan
-
.
Impression
Impression
Iron deficiency anemia, ferritin 10.5. s/p 1Unit prbc c3/7. s/p 5 doses ferric gluconate completed 08/05
EGD with non-obstructing Schatzki ring, gastritis
chronic anemia, competent of cytoreduction from hydrea
CALR+ essential thrombocytosis
Right-sided chest discomfort, radiates to back
troponin peak 0.2, NSTEMI
PAF
History of splenic infarcts
Plan
Plan
plan for Lexiscan stress test -cardiology following
transfuse Hgb <7 or as needed for sxs anemia
continue Hydrea
defer to cardiology/GI regarding risk/benefit of antiplatelet and anticoagulation
Subjective/Objective
Subjective
no new complaints
Vital Signs:
Vital Signs
Temp Pulse Resp BP Pulse Ox
98.2 F 64 16 117/53 96
08/06/24 07:52 08/06/24 08:52 08/06/24 07:52 08/06/24 08:52 08/06/24 07:52
Lab Results:
Laboratory Data
WBC 8.0 10^3/uL (4.8-10.8) 08/06/24 04:18
Hgb 8.7 g/dL (12.0-16.0) L 08/06/24 04:18
Plt Count 392 10^3/uL (130-400) 08/06/24 04:18
APTT Cancelled 08/03/24 05:00
eGFR 48.33 08/06/24 04:18
--- NOTE | 2024-08-06 11:04 | PTCARENOTE ---
pt continues to be sr on the monitor, hr in the 60s, vss. pt offers no complaints at this time. pt educated on plan of care for the day and pt verbalized understanding. call don within reach.
[2024-08-06 11:32] VITALS: BP 135/64
--- NOTE | 2024-08-06 12:08 | W.PN.HOSP.TC ---
Today's Communication/Plan
-
Monitor vital signs see plan
Cardiology wants to do stress test outpatient
Discharge today
Discussed with cardiology, hold Eliquis on discharge
Time of discharge 38 minutes
Assessment / Plan
Assessment / Plan
Physical exam:
General: Well Developed, Well Nourished, Comfortable and Conversant
HEENT: NormoCephalic, Anicteric, Moist mucous membranes, Atraumatic and PERRLA
Respiratory: Clear
Cardiac: S1/S2.
GI: Soft, Non Tender, Non Distended and Normal Bowel Sounds
Musculoskeletal:No Edema
Skin: Warm
Neuro: AO x 3, Nonfocal/grossly intact and Cranial Nerves Intact
Psych: Calm
# Chest pain; r/o ACS
NSTEMI versus non ACS myocardial injury from anemia trop peaked 0.2
s/p hep gtt
Added low dose Imdur
echo with preserved EF
cardiology following
Was on heparin drip, off now
last dose of Eliquis was at around 9 pm 3/4
-Nitroglycerin as needed chest pain
Initial plan was for stress test however now cardiology wants to do this outpatient. Discussed with Dr. Blood from cardiology and will hold Eliquis on discharge.
# Anemia -microcytic anemia, history of GI bleed, reports iron levels were normal and she had constipation with oral iron supplementation which resulted in hemorrhoidal bleed.
Suspect acute on chronic, slow acute blood loss anemia
KLEVER
started IV iron
heme test stool +
s/p 1 unit prbc and monitor; no brenden bleeding
EGD showed nonobstructing Schatzki ring, gastritis, normal duodenum. GI recommended PPI twice a day with no contraindication for anticoagulation.
# Hanh
improving
#Paroxysmal AFIB
-Continue metoprolol at bedtime for rate control
Discussed with cardiology, hold Eliquis on discharge. Cardiology will likely put patient on outpatient cardiac monitoring
#Essential hypertension
slightly uncontrolled
added Imdur
c/w BB, lisinopril and Norvasc
#Chronic Thrombocytosis
History of splenic infarcts
on hydroxyurea
heme following
DVT prophylaxis�on heparin
CODE STATUS�SCD's
Anticipated Discharge: Today
Subjective/Interval History
-
Date of Service: August 06, 2024
Denies chest pain
Objective Data
-
Labs:
Laboratory Results
08/06/24
04:18
WBC 8.0
Hgb 8.7 L
Hct 27.8 L
Plt Count 392
Sodium 136
Potassium 3.8
Chloride 103
Carbon Dioxide 24
BUN 18 H
Creatinine 1.1 H
Glucose 109 H
Calcium 8.7
Vital Signs:
Vital Signs
Temp Pulse Resp BP Pulse Ox
97.8 F 64 18 117/53 97
08/06/24 11:31 08/06/24 08:52 08/06/24 11:31 08/06/24 08:52 08/06/24 11:31
I&O
08/05/24 08/06/24 08/07/24
06:59 06:59 06:59
Intake Total 480 / 960 480 / 480
Balance 480 / 960 480 / 480
[2024-08-06 12:15] VITALS: BP 128/56
--- NOTE | 2024-08-06 12:16 | W.DCSUMMARY ---
Discharge Summary
Discharge Data
Date of Admission: 08/01/24
Date of Discharge: 08/06/24
-
Pending Results: No
Hospital Course
88-year-old female with past medical history of paroxysmal atrial fibrillation, essential hypertension, chronic thrombocytosis, history of splenic infarcts came to the hospital with NSTEMI. Patient was seen by cardiology throughout hospitalization.
Patient also was noted to have microcytic anemia for which hematology was consulted. Patient was started on IV iron. Patient heme stool was also positive so GI was consulted. GI performed EGD which showed nonobstructing Schatzki ring, gastritis.
GI recommended patient to be put on PPI twice a day. For patient NSTEMI initially cardiology plan for Cardiac catheterization however later decided for patient to have outpatient stress test. Cardiology also recommended to hold Eliquis on
discharge. Once patient symptoms continue to improve and her hemoglobin was stable, she was then discharged home with instructions to follow-up with all her physicians outpatient.
Discharge Plan
-
Patient Disposition: Home with Home Care
Discharge Diagnosis/Procedures: NSTEMI
Essential thrombocytosis
Iron deficiency anemia
Gastritis
Diet: As tolerated
Activity: As tolerated
Driving Restrictions: As prior to admission
Referrals:
[facility] [Outside]
Jones Lewis MD [Active] -
Abel Brian MD [Family Provider] - in less than 1 week
Pete Blood MD [Active] -
Gopal Perez MD [Active] -
Prescriptions:
New
isosorbide mononitrate 30 mg Tablet Extended Release 24 Hr
30 mg PO DAILY Qty: 30 0RF
amlodipine 5 mg Tablet
5 mg PO DAILY Qty: 30 0RF
aspirin 81 mg Tablet,Chewable
81 mg PO DAILY Qty: 30 0RF
atorvastatin 40 mg Tablet
40 mg PO QPM Qty: 30 0RF
metoprolol succinate 25 mg Tablet Extended Release 24 Hr
37.5 mg PO BID Qty: 60 0RF
pantoprazole [Protonix] 40 mg tablet,delayed release (DR/EC)
40 mg PO BID Qty: 60 0RF
Continued
cholecalciferol (vitamin D3) 1,000 UNITS tablet
1,000 units PO DAILY
cyanocobalamin (vitamin B-12) 500 MCG tablet, sublingual
1,000 mcg sublingual .MONWEDFRI
hydroxyurea 500 MG capsule
500 mg PO DAILY
levothyroxine 75 MCG tablet
75 mcg PO DAILY
lisinopril 20 MG tablet
20 mg PO DAILY Qty: 30 0RF
sertraline 25 mg Tablet
25 mg PO DAILY
gabapentin 300 mg Tablet
300 mg PO HS
Centrum Silver 0.4 mg-300 mcg- 250 mcg Tablet
1 tab PO DIRECTED
Rx Instructions:
3 x a week
Held
Eliquis 5 mg Tablet
5 mg PO DAILY
Hold Instructions: Restart when okay with cardiology
Discontinued
metoprolol succinate [Toprol XL] 25 MG tablet extended release 24 hr
25 mg PO HS
amlodipine 2.5 mg Tablet
2.5 mg PO DAILY
Discharge Orders:
Discharge Patient (As Directed); Ordered 08/06/24
Ordered By: Hunter Pugh
Discharge Date and Time
Discharge Date/Time: 08/06/24 15:51
Print Language: SWEDISH
[2024-08-06 12:24] VITALS: BP 128/56; PULSE 65
--- NOTE | 2024-08-06 15:42 | PTCARENOTE ---
pt has been on bipap for a majority of the morning. she got a break from bipap for nutrition around 1330. pts breathing is labored after meal, RR high 20s, sounds a little more wet. Her breathing effort is labored more and respiratory notified to
put pt back on bipap. notified dr. veras, for need for continuous bipap. pt upgraded to IMU.
Pt currently afib on the monitor, hr in the 90s, O2 91% on bipap, bp 153/96. pt offers no complaints at this time. pt resting in bed with at bedside visiting. pt and both educated on plan of care and both verbalized understanding.
call don within reach.
--- NOTE | 2024-08-06 15:48 | PTCARENOTE ---
d/c instructions read to pt and pt verbalized understanding. pt verbalized understanding. iv and tele removed. pt left with belongings from room and d/c instructions. pt left via wheelchair with volunteer.
== END 2024-08-06 15:51 | disposition home health service (06) | DRG 280 ==
LOC: IVU 03:58
PROVIDERS: Internal Medicine; Internal Medicine Cardiovascular Disease; Nurse Practitioner Family; ADMITTING PHYSICIAN Internal Medicine; ATTENDING PHYSICIAN Internal Medicine; CONSULT PHYSICIAN Internal Medicine Hematology & Oncology; CONSULT PHYSICIAN Specialist; EMERGENCY PHYSICIAN Student in an Organized Health Care Education/Training Program; FAMILY PHYSICIAN Internal Medicine Geriatric Medicine; OTHER PHYSICIAN Internal Medicine Cardiovascular Disease; REFERRING PHYSICIAN Internal Medicine Cardiovascular Disease
PROC: 30233N1 Transfusion of Nonautologous Red Blood Cells into Peripheral Vein, Percutaneous Approach (ICD-10-PCS; 2024-08-03)
PROC: 0DB68ZX Excision of Stomach, Via Natural or Artificial Opening Endoscopic, Diagnostic (ICD-10-PCS; 2024-08-03)
DX: I21.4 Non-ST elevation (NSTEMI) myocardial infarction (principal); K29.71 Gastritis, unspecified, with bleeding; D47.3 Essential (hemorrhagic) thrombocythemia; D50.9 Iron deficiency anemia, unspecified; K22.2 Esophageal obstruction; I48.0 Paroxysmal atrial fibrillation; N18.31 Chronic kidney disease, stage 3a; I12.9 Hypertensive chronic kidney disease with stage 1 through stage 4 chronic kidney disease, or unspecified chronic kidney disease; D75.839 Thrombocytosis, unspecified; Z79.890 Hormone replacement therapy; Z79.01 Long term (current) use of anticoagulants; Z90.49 Acquired absence of other specified parts of digestive tract; Z90.710 Acquired absence of both cervix and uterus; Z87.891 Personal history of nicotine dependence; E78.00 Pure hypercholesterolemia, unspecified; R53.82 Chronic fatigue, unspecified; Z66 Do not resuscitate; Z79.899 Other long term (current) drug therapy; E03.9 Hypothyroidism, unspecified; K58.9 Irritable bowel syndrome, unspecified; F32.9 Major depressive disorder, single episode, unspecified; G43.909 Migraine, unspecified, not intractable, without status migrainosus; G62.9 Polyneuropathy, unspecified; Z82.49 Family history of ischemic heart disease and other diseases of the circulatory system; M48.00 Spinal stenosis, site unspecified; M79.7 Fibromyalgia; Z98.41 Cataract extraction status, right eye; Z98.42 Cataract extraction status, left eye
CPT/HCPCS: 88305; 71046; 80048; 80053; 80061; 82607; 82728; 82746; 83036; 83540; 83550; 84145; 84484; 85025; 85027; 85045; 85730; 86850; 86900; 86901; 86920; 88342; 93005; 93306; 97116; 97163; 97530; 99291; J2916; P9016

== ENCOUNTER → 2024-08-21 12:35 | Outpatient (REF) | payer OTHER, SELFPAY | LOC: PET 12:35 | PROVIDERS: ATTENDING PHYSICIAN Internal Medicine Cardiovascular Disease | DX: R07.9 Chest pain, unspecified (principal); R74.8 Abnormal levels of other serum enzymes | CPT/HCPCS: 78431; A9555; J2785 ==

== ENCOUNTER → 2024-08-30 12:51 | Outpatient (REF) | payer OTHER, SELFPAY ==
[2024-08-30 13:19] LABS: % Basophils 2.2 % (0-2); % Immature Granulocytes 6.7 % (0-0.5); % Lymphocytes 9.7 % (20.5-51.1); % Monocytes 7.6 % (1.7-9.3); % Neutrophils 72.8 % (42.2-75.2); Absolute Basophils 0.3 10^3/uL (0-0.2); Absolute Eosinophils 0.1 10^3/uL (0-0.7); Absolute Immature Granulocytes 0.8 10^3/uL (0-0.05); Absolute Lymphocytes 1.1 10^3/uL (1.2-3.4); Absolute Monocytes 0.9 10^3/uL (0.1-0.6); Absolute Neutrophils 8.3 10^3/uL (1.4-6.5); Hematocrit 30.4 % (37.0-47.0); Hemoglobin 9.3 g/dL (12.0-16.0); Mean Corp Hgb Conc. 30.6 g/dL (33.0-37.0); Mean Corpuscular Volume 104.5 fL (81.0-99.0); Mean Platelet Volume 9.6 fL (7.4-10.4); Platelet Count 546 10^3/uL (130-400); Red Blood Cell Count 2.91 10^6/uL (4.20-5.40); Red Cell Dist. Width 20.8 % (11.5-14.5); White Blood Cell Count 11.4 10^3/uL (4.8-10.8)
== END ==
LOC: OIDL 12:51
PROVIDERS: ATTENDING PHYSICIAN Internal Medicine Hematology & Oncology; FAMILY PHYSICIAN Internal Medicine Geriatric Medicine
DX: D47.3 Essential (hemorrhagic) thrombocythemia (principal); D64.81 Anemia due to antineoplastic chemotherapy; D50.9 Iron deficiency anemia, unspecified
CPT/HCPCS: 36415; 85025

== ENCOUNTER → 2024-09-13 13:05 | Outpatient (REF) | payer OTHER, SELFPAY ==
[2024-09-13 13:32] LABS: % Basophils 1.8 % (0-2); % Eosinophils 0.8 % (0-6); % Immature Granulocytes 8.9 % (0-0.5); % Lymphocytes 9.2 % (20.5-51.1); % Monocytes 6.4 % (1.7-9.3); % Neutrophils 72.9 % (42.2-75.2); Absolute Basophils 0.2 10^3/uL (0-0.2); Absolute Eosinophils 0.1 10^3/uL (0-0.7); Absolute Monocytes 0.7 10^3/uL (0.1-0.6); Absolute Neutrophils 8.1 10^3/uL (1.4-6.5); Hematocrit 31.2 % (37.0-47.0); Hemoglobin 9.5 g/dL (12.0-16.0); Mean Corp Hgb Conc. 30.4 g/dL (33.0-37.0); Mean Corpuscular Hgb 32.2 pg (27.0-31.0); Mean Corpuscular Volume 105.8 fL (81.0-99.0); Mean Platelet Volume 9.6 fL (7.4-10.4); Platelet Count 655 10^3/uL (130-400); Red Blood Cell Count 2.95 10^6/uL (4.20-5.40); Red Cell Dist. Width 20.2 % (11.5-14.5); White Blood Cell Count 11.1 10^3/uL (4.8-10.8)
== END ==
LOC: OIDL 13:05
PROVIDERS: ATTENDING PHYSICIAN Internal Medicine Hematology & Oncology; FAMILY PHYSICIAN Internal Medicine Geriatric Medicine
DX: D47.3 Essential (hemorrhagic) thrombocythemia (principal); D64.81 Anemia due to antineoplastic chemotherapy; D50.9 Iron deficiency anemia, unspecified
CPT/HCPCS: 36415; 85025

== ENCOUNTER 2024-09-20 15:58 | Emergency (ER) | payer OTHER, SELFPAY ==
[2024-09-20] VITALS (7 sets, daily range): BP systolic 117–161; BP diastolic 50–88
--- NOTE | 2024-09-20 16:16 | ED.GENMED ---
History of Present Illness
General
Chief Complaint: Chest Pain
Source: patient
Exam Limitations: none
Time Seen by Provider: 09/20/24 16:03
History of Present Illness
History of Present Illness:
88-year-old female with history of A-fib currently on baby aspirin as well as coronary artery disease presents with intermittent chest discomfort over the past 2 to 3 days but more persistent today. Hurts to move into the touch. It does not hurt
to breathe. She was here in July of this year for non-STEMI upon discharge
Past History
Past History
ED Past Medical History: Arrthythmia (atrial fibrillation), Fibromyalgia, GERD, HTN, Hypercholesterolemia, Hypothyroidism, Psychiatric (major depression), Other (essential thrombocytosis, GI bleed, irritable bowel disease, neuropathy, Anemia,
Migraines, Essential tremors, Dizziness, ) and Other (spinal stenosis, left wrist fracture,)
ED Past Surgical History: Cholecystectomy (2015), Gynecological (bilateral tubal ligation, hysterectomy, ), Orthopedic (ankle surgery following fracture and 2016), Urological (bladder lift 2007) and Other (bilateral cataract extractions, cyst
removed from finger 2015)
Social History
Tobacco: Former smoker
Alcohol: None
Drug: None
Personal:
Living: alone
Employment: Retired
Family History
Family History: Other (reviewed and Noncontributory)
Phy Exam
Physical Exam
Physical Exam:
General: Well-appearing female no acute respiratory distress
HEENT: Normocephalic atraumatic
Heart: Regular rate and rhythm
Lungs: Clear no wheeze
Extremities: No cyanosis or edema
Skin: Warm no rash
Scores
Heart Score for Chest Pain Patients
STEMI patient?: No
History: Slightly or Non-Suspicious
ECG: Normal
Age: >/= 65 years
Risk Factors: >/= 3 Risk Factors or History of CAD
Troponin: </= Normal Limit
Heart Score for Chest Pain Patients: 4
Heart Score Risk: 20.3% MACE over next 6 weeks
Course
Orders/Labs/Results
Orders:
Orders
09/20/24 16:01
Electrocardiogram (*1) Urgent
Reason for Study: Chest Pain
Cardiac Monitoring- Treatment ONCE
EKG- Treatment ONCE
IV Insert/Care/Rem.- Treatment PRN
O2 Therapy [RESP] Urgent
Titrate/Wean O2 to maintain O2 sat greater than (%): 90
Special Instructions: Maintain sats >/=90%
Pulse Ox/spot Check [RESP] Urgent
Quantity: 1
Special Instructions: ON ROOM AIR
09/20/24 16:12
Complete Blood Count/With Diff Urgent
Comprehensive Metabolic Panel Urgent
Prothrombin Time Urgent
Troponin I Urgent
09/20/24 16:15
CR Ribs-right 3 Vw W/pa Chest* Urgent
Comment:
Reason For Exam: right chest pain
09/20/24 20:28
Troponin I Urgent
Abnormal Lab Results
09/20/24
16:12
RBC 2.94 L 10^6/uL
(4.20-5.40)
Hgb 9.8 L g/dL
(12.0-16.0)
Hct 31.0 L %
(37.0-47.0)
MCV 105.4 H fL
(81.0-99.0)
MCH 33.3 H pg
(27.0-31.0)
MCHC 31.6 L g/dL
(33.0-37.0)
RDW 20.1 H %
(11.5-14.5)
Plt Count 610 H 10^3/uL
(130-400)
BUN 21 H mg/dl
(7-17)
Glucose 132 H mg/dl
(70-99)
Total Protein 6.2 L g/dl
(6.3-8.2)
09/20/24 16:12
09/20/24 16:12
Vital Signs
Initial and Last Documented VS:
Initial Vital Signs
Temp Pulse Resp BP Pulse Ox
97.8 F 73 12 117/88 95
09/20/24 16:02 09/20/24 16:02 09/20/24 16:02 09/20/24 16:02 09/20/24 16:02
Last Documented Vital Signs
Temp Pulse Resp BP Pulse Ox
97.8 F 73 12 141/64 94
09/20/24 16:02 09/20/24 21:00 09/20/24 21:00 09/20/24 21:00 09/20/24 21:11
MDM/Problems Addressed
Differential Diagnosis Includes:
Chest pain. This is atypical in nature worse with motion and to the touch. Although, she does have a history of acute coronary syndrome with coronary artery disease. Check EKG troponin. Rib series ordered secondary to recent fall. Pain is not
pleuritic she is not hypoxic nor she tachycardic. Do not suspect PE pain is relieved if she lays still on her back do not suspect dissection.
She took 3 nitroglycerin tablets at home without any relief
*Critical Care Note
Total Time (30-74mins, 75-104mins- exclusive of procedures): Not Applicable
Update Note
Update Note:
Troponin x 2 undetectable. Rib series negative. Pain is reproducible to the touch. I suspect chest wall discomfort. Do not suspect ACS PE or dissection. Patient has been stable here. No indication for admission stable for discharge
ED Attending Note
-
Portions of this chart may have been created with voice recognition software.� Occasional wrong word or��sound alike� substitutions may have occurred due to the inherent limitations of voice recognition software.
Discharge Plan
Departure
Patient Disposition: Home (Routine Discharge)
Date of Disposition: 09/20/24
Time of Disposition: 22:11
Patient with high blood pressure during this ER visit?: No
Discharge Problem:
Chest pain
Instructions: Chest Pain CBC Follow Up
Prescriptions:
No Action
cholecalciferol (vitamin D3) 1,000 UNITS tablet
1,000 units PO DAILY
cyanocobalamin (vitamin B-12) 500 MCG tablet, sublingual
1,000 mcg sublingual .MONWEDFRI
hydroxyurea 500 MG capsule
500 mg PO DAILY
levothyroxine 75 MCG tablet
75 mcg PO DAILY
lisinopril 20 MG tablet
20 mg PO DAILY Qty: 30 0RF
sertraline 25 mg Tablet
25 mg PO DAILY
gabapentin 300 mg Tablet
300 mg PO HS
Centrum Silver 0.4 mg-300 mcg- 250 mcg Tablet
1 tab PO DIRECTED
Rx Instructions:
3 x a week
Eliquis 5 mg Tablet
5 mg PO DAILY
isosorbide mononitrate 30 mg Tablet Extended Release 24 Hr
30 mg PO DAILY Qty: 30 0RF
amlodipine 5 mg Tablet
5 mg PO DAILY Qty: 30 0RF
aspirin 81 mg Tablet,Chewable
81 mg PO DAILY Qty: 30 0RF
atorvastatin 40 mg Tablet
40 mg PO QPM Qty: 30 0RF
metoprolol succinate 25 mg Tablet Extended Release 24 Hr
37.5 mg PO BID Qty: 60 0RF
pantoprazole [Protonix] 40 mg tablet,delayed release (DR/EC)
40 mg PO BID Qty: 60 0RF
Referrals:
Abel Brian MD [Family Provider] -
Activity Restrictions/Additional Instructions:
Please return here for worsening symptoms. You may take Tylenol for pain. Follow-up with cardiology otherwise
Interventions
Interventions:
*Risk Screen - Suicide Last Done: 09/20/24 16:02
*General Assessment Last Done: 09/20/24 16:02
*Neglect/Abuse Screening Last Done: 09/20/24 16:02
*ED- Fall Risk Assessment Last Done: 09/20/24 16:02
*ED COVID-19 Vaccine History Last Done: 09/20/24 16:02
ED- Cardiac Assessment Last Done: 09/20/24 18:12
Discharge Date and Time
Print Language: ARGENT[place]
[2024-09-20 16:31] LABS: ALT (SGPT) 12 U/L (0-35); AST (SGOT) 25 U/L (14-36); Albumin 3.9 g/dl (3.5-5.0); Alkaline Phosphatase 83 U/L (38-126); Blood Urea Nitrogen 21 mg/dl (7-17); Carbon Dioxide 25 mmol/L (22-30); Chloride 106 mmol/L (98-107); Estimated Creatinine Clearance 38 ml/min; Glucose 132 mg/dl (70-99); Potassium 4.4 mmol/L (3.5-5.1); Sodium 140 mmol/L (135-145); Total Bilirubin 0.9 mg/dl (0.2-1.3); Total Protein 6.2 g/dl (6.3-8.2); eGFR 54.19
[2024-09-20 16:33] LABS: Hemoglobin 9.8 g/dL (12.0-16.0); Mean Corp Hgb Conc. 31.6 g/dL (33.0-37.0); Mean Corpuscular Hgb 33.3 pg (27.0-31.0); Mean Corpuscular Volume 105.4 fL (81.0-99.0); Mean Platelet Volume 9.9 fL (7.4-10.4); Platelet Count 610 10^3/uL (130-400); Red Blood Cell Count 2.94 10^6/uL (4.20-5.40); Red Cell Dist. Width 20.1 % (11.5-14.5); White Blood Cell Count 10.1 10^3/uL (4.8-10.8)
[2024-09-20 16:34] LABS: INR 0.99; PT 13.6 Sec (11.4-14.6)
[2024-09-20 16:43] LABS: Troponin I < 0.012 ng/ml
[2024-09-20 21:00] LABS: Troponin I < 0.012 ng/ml
== END 2024-09-20 22:35 | disposition home or self-care (01) ==
LOC: EMR 15:58
PROVIDERS: Physician Assistant; EMERGENCY PHYSICIAN Emergency Medicine; FAMILY PHYSICIAN Internal Medicine Geriatric Medicine
DX: R07.89 Other chest pain (principal); I48.91 Unspecified atrial fibrillation; I25.10 Atherosclerotic heart disease of native coronary artery without angina pectoris; I10 Essential (primary) hypertension; E78.00 Pure hypercholesterolemia, unspecified; E03.9 Hypothyroidism, unspecified; G25.0 Essential tremor; I25.2 Old myocardial infarction; K58.9 Irritable bowel syndrome, unspecified; M79.7 Fibromyalgia; Z87.891 Personal history of nicotine dependence; Z90.49 Acquired absence of other specified parts of digestive tract; Z90.710 Acquired absence of both cervix and uterus
CPT/HCPCS: 99283; 71101; 80053; 84484; 85025; 85610; 93005

== ENCOUNTER → 2024-10-04 13:05 | Outpatient (REF) | payer OTHER, SELFPAY ==
[2024-10-04 13:18] LABS: % Basophils 2.1 % (0-2); % Eosinophils 0.8 % (0-6); % Immature Granulocytes 7.7 % (0-0.5); % Lymphocytes 8.9 % (20.5-51.1); % Monocytes 7.1 % (1.7-9.3); % Neutrophils 73.4 % (42.2-75.2); Absolute Basophils 0.3 10^3/uL (0-0.2); Absolute Eosinophils 0.1 10^3/uL (0-0.7); Absolute Lymphocytes 1.1 10^3/uL (1.2-3.4); Absolute Monocytes 0.9 10^3/uL (0.1-0.6); Hematocrit 31.3 % (37.0-47.0); Hemoglobin 9.6 g/dL (12.0-16.0); Mean Corp Hgb Conc. 30.7 g/dL (33.0-37.0); Mean Corpuscular Hgb 32.5 pg (27.0-31.0); Mean Corpuscular Volume 106.1 fL (81.0-99.0); Mean Platelet Volume 9.7 fL (7.4-10.4); Platelet Count 644 10^3/uL (130-400); Red Blood Cell Count 2.95 10^6/uL (4.20-5.40); Red Cell Dist. Width 19.6 % (11.5-14.5); White Blood Cell Count 12.3 10^3/uL (4.8-10.8)
[2024-10-04 14:38] LABS: Iron 48 ug/dl (37-170)
[2024-10-04 14:48] LABS: Percent Saturation 16 % (20-50); Total Iron Binding Capacity 286 ug/dl (265-497)
[2024-10-04 15:13] LABS: Ferritin 68.5 ng/ml (11.1-264.0)
== END ==
LOC: OIDL 13:05
PROVIDERS: ATTENDING PHYSICIAN Internal Medicine Hematology & Oncology; FAMILY PHYSICIAN Internal Medicine Geriatric Medicine
DX: D47.3 Essential (hemorrhagic) thrombocythemia (principal); D64.81 Anemia due to antineoplastic chemotherapy; D50.9 Iron deficiency anemia, unspecified
CPT/HCPCS: 36415; 82728; 83540; 83550; 85025

== ENCOUNTER → 2024-10-18 13:08 | Outpatient (REF) | payer OTHER, SELFPAY ==
[2024-10-18 13:34] LABS: % Basophils 1.8 % (0-2); % Eosinophils 0.8 % (0-6); % Immature Granulocytes 8.9 % (0-0.5); % Lymphocytes 8.7 % (20.5-51.1); % Monocytes 6.4 % (1.7-9.3); % Neutrophils 73.4 % (42.2-75.2); Absolute Basophils 0.2 10^3/uL (0-0.2); Absolute Eosinophils 0.1 10^3/uL (0-0.7); Absolute Immature Granulocytes 0.9 10^3/uL (0-0.05); Absolute Lymphocytes 0.9 10^3/uL (1.2-3.4); Absolute Monocytes 0.7 10^3/uL (0.1-0.6); Absolute Neutrophils 7.5 10^3/uL (1.4-6.5); Hematocrit 33.7 % (37.0-47.0); Hemoglobin 10.4 g/dL (12.0-16.0); Mean Corp Hgb Conc. 30.9 g/dL (33.0-37.0); Mean Corpuscular Hgb 32.8 pg (27.0-31.0); Mean Corpuscular Volume 106.3 fL (81.0-99.0); Mean Platelet Volume 9.5 fL (7.4-10.4); Platelet Count 577 10^3/uL (130-400); Red Blood Cell Count 3.17 10^6/uL (4.20-5.40); White Blood Cell Count 10.3 10^3/uL (4.8-10.8)
[2024-10-18 14:11] LABS: Iron 55 ug/dl (37-170)
[2024-10-18 14:20] LABS: Percent Saturation 17 % (20-50); Total Iron Binding Capacity 322 ug/dl (265-497)
[2024-10-18 15:16] LABS: Ferritin 55.2 ng/ml (11.1-264.0)
== END ==
LOC: OIDL 13:08
PROVIDERS: ATTENDING PHYSICIAN Internal Medicine Hematology & Oncology
DX: D47.3 Essential (hemorrhagic) thrombocythemia (principal); D64.81 Anemia due to antineoplastic chemotherapy; D50.9 Iron deficiency anemia, unspecified
CPT/HCPCS: 36415; 82728; 83540; 83550; 85025

== ENCOUNTER → 2024-11-15 13:11 | Outpatient (REF) | payer OTHER, SELFPAY ==
[2024-11-15 13:56] LABS: % Eosinophils 0.6 % (0-6); % Immature Granulocytes 5.3 % (0-0.5); % Lymphocytes 10.5 % (20.5-51.1); % Monocytes 6.5 % (1.7-9.3); % Neutrophils 76.1 % (42.2-75.2); Absolute Basophils 0.1 10^3/uL (0-0.2); Absolute Eosinophils 0.1 10^3/uL (0-0.7); Absolute Immature Granulocytes 0.4 10^3/uL (0-0.05); Absolute Lymphocytes 0.9 10^3/uL (1.2-3.4); Absolute Monocytes 0.5 10^3/uL (0.1-0.6); Absolute Neutrophils 6.2 10^3/uL (1.4-6.5); Hematocrit 31.6 % (37.0-47.0); Hemoglobin 9.7 g/dL (12.0-16.0); Mean Corp Hgb Conc. 30.7 g/dL (33.0-37.0); Mean Corpuscular Hgb 33.7 pg (27.0-31.0); Mean Corpuscular Volume 109.7 fL (81.0-99.0); Mean Platelet Volume 9.6 fL (7.4-10.4); Platelet Count 402 10^3/uL (130-400); Red Blood Cell Count 2.88 10^6/uL (4.20-5.40); Red Cell Dist. Width 19.5 % (11.5-14.5); White Blood Cell Count 8.2 10^3/uL (4.8-10.8)
== END ==
LOC: OIDL 13:11
PROVIDERS: ATTENDING PHYSICIAN Internal Medicine Hematology & Oncology; FAMILY PHYSICIAN Internal Medicine Geriatric Medicine
DX: D47.3 Essential (hemorrhagic) thrombocythemia (principal); D64.81 Anemia due to antineoplastic chemotherapy; D50.9 Iron deficiency anemia, unspecified
CPT/HCPCS: 36415; 85025

== ENCOUNTER → 2024-12-04 17:35 | Outpatient (REF) | payer OTHER, SELFPAY | LOC: WDC 17:35 | PROVIDERS: ATTENDING PHYSICIAN Internal Medicine Geriatric Medicine | DX: Z12.31 Encounter for screening mammogram for malignant neoplasm of breast (principal) | CPT/HCPCS: 77063; 77067 ==

== ENCOUNTER → 2024-12-13 12:47 | Outpatient (REF) | payer OTHER, SELFPAY ==
[2024-12-13 13:33] LABS: Hematocrit 30.9 % (37.0-47.0); Hemoglobin 9.6 g/dL (12.0-16.0); Mean Corp Hgb Conc. 31.1 g/dL (33.0-37.0); Mean Corpuscular Volume 110.8 fL (81.0-99.0); Platelet Count 362 10^3/uL (130-400); Red Cell Dist. Width 18.8 % (11.5-14.5)
[2024-12-13 16:21] LABS: Iron 46 ug/dl (37-170)
[2024-12-13 16:31] LABS: Total Iron Binding Capacity 264 ug/dl (265-497)
[2024-12-13 16:59] LABS: Ferritin 249.0 ng/ml (11.1-264.0)
== END ==
LOC: OIDL 12:47
PROVIDERS: Nurse Practitioner Primary Care; ATTENDING PHYSICIAN Internal Medicine Hematology & Oncology; FAMILY PHYSICIAN Internal Medicine Geriatric Medicine
DX: D47.3 Essential (hemorrhagic) thrombocythemia (principal); D64.81 Anemia due to antineoplastic chemotherapy; D50.9 Iron deficiency anemia, unspecified
CPT/HCPCS: 36415; 82728; 83540; 83550; 85025

== ENCOUNTER → 2025-01-10 13:07 | Outpatient (REF) | payer OTHER, SELFPAY ==
[2025-01-10 13:37] LABS: Hematocrit 31.1 % (37.0-47.0); Hemoglobin 9.6 g/dL (12.0-16.0); Mean Corp Hgb Conc. 30.9 g/dL (33.0-37.0); Mean Corpuscular Volume 111.5 fL (81.0-99.0); Platelet Count 612 10^3/uL (130-400); Red Cell Dist. Width 17.7 % (11.5-14.5)
== END ==
LOC: OIDL 13:07
PROVIDERS: ATTENDING PHYSICIAN Internal Medicine Hematology & Oncology; FAMILY PHYSICIAN Internal Medicine Geriatric Medicine
DX: D47.3 Essential (hemorrhagic) thrombocythemia (principal); D64.81 Anemia due to antineoplastic chemotherapy; D50.9 Iron deficiency anemia, unspecified
CPT/HCPCS: 36415; 85025

== ENCOUNTER → 2025-01-24 13:28 | Outpatient (REF) | payer OTHER, SELFPAY ==
[2025-01-24 13:40] LABS: Hematocrit 30.6 % (37.0-47.0); Hemoglobin 9.4 g/dL (12.0-16.0); Mean Corp Hgb Conc. 30.7 g/dL (33.0-37.0); Mean Corpuscular Volume 110.5 fL (81.0-99.0); Platelet Count 597 10^3/uL (130-400); Red Cell Dist. Width 17.3 % (11.5-14.5)
== END ==
LOC: OIDL 13:28
PROVIDERS: ATTENDING PHYSICIAN Internal Medicine Hematology & Oncology; FAMILY PHYSICIAN Internal Medicine Geriatric Medicine
DX: D47.3 Essential (hemorrhagic) thrombocythemia (principal); D64.81 Anemia due to antineoplastic chemotherapy; D50.9 Iron deficiency anemia, unspecified
CPT/HCPCS: 36415; 85025

== ENCOUNTER → 2025-02-07 13:06 | Outpatient (REF) | payer OTHER, SELFPAY ==
[2025-02-07 13:59] LABS: Hematocrit 29.5 % (37.0-47.0); Hemoglobin 9.0 g/dL (12.0-16.0); Mean Corp Hgb Conc. 30.5 g/dL (33.0-37.0); Mean Corpuscular Volume 107.3 fL (81.0-99.0); Platelet Count 618 10^3/uL (130-400); Red Cell Dist. Width 17.3 % (11.5-14.5)
[2025-02-07 15:00] LABS: Nucleated Red Blood Cells % 1.1 %
[2025-02-07 17:33] LABS: Absolute Neutrophils -Man Diff 10.5 10^3/uL (1.4-6.5)
[2025-02-07 17:34] LABS: Normal RBC Morphology No; Platelets Checked Yes
[2025-02-07 17:36] LABS: Anisocytosis 1+; Hypochromasia 1+; Macrocytosis 1+; Polychromasia 1+
[2025-02-07 17:37] LABS: Ovalocytes 1+; Total Cells Counted 100
== END ==
LOC: OIDL 13:06
PROVIDERS: ATTENDING PHYSICIAN Internal Medicine Hematology & Oncology; FAMILY PHYSICIAN Internal Medicine Geriatric Medicine
DX: D47.3 Essential (hemorrhagic) thrombocythemia (principal); D64.81 Anemia due to antineoplastic chemotherapy; D50.9 Iron deficiency anemia, unspecified
CPT/HCPCS: 36415; 85025

== ENCOUNTER 2025-02-11 21:55 | Emergency (ER) | payer OTHER, SELFPAY ==
[2025-02-11 22:02] VITALS: BP 159/66
[2025-02-11 22:26] LABS: Glucose - Point of Care 121 mg/dl (70-99)
[2025-02-11 22:38] LABS: Hematocrit 30.5 % (37.0-47.0); Hemoglobin 9.6 g/dL (12.0-16.0); Mean Corp Hgb Conc. 31.5 g/dL (33.0-37.0); Mean Corpuscular Volume 103.0 fL (81.0-99.0); Platelet Count 602 10^3/uL (130-400); Red Cell Dist. Width 17.3 % (11.5-14.5)
[2025-02-11 22:54] LABS: ALT (SGPT) 12 U/L (0-35); AST (SGOT) 22 U/L (14-36); Albumin 4.0 g/dl (3.5-5.0); Alkaline Phosphatase 90 U/L (38-126); Blood Urea Nitrogen 23 mg/dl (7-17); Calcium 9.2 mg/dl (8.4-10.2); Carbon Dioxide 28 mmol/L (22-30); Chloride 100 mmol/L (98-107); Glucose 110 mg/dl (70-99); Potassium 4.8 mmol/L (3.5-5.1); Sodium 133 mmol/L (135-145); Total Protein 6.4 g/dl (6.3-8.2); eGFR 53.85
[2025-02-11 23:03] LABS: Nucleated Red Blood Cells % 2.0 %
[2025-02-11 23:06] LABS: Troponin I < 0.012 ng/ml
[2025-02-12 01:42] VITALS: BP 143/70
[2025-02-12 02:00] VITALS: BP 134/48
[2025-02-12 02:09] VITALS: BMI 26.0
[2025-02-12 02:44] LABS: COVID-19 Antigen Negative (Negative)
[2025-02-12 03:00] VITALS: BP 137/57
[2025-02-12 04:00] VITALS: BP 143/63
[2025-02-12 04:49] LABS: Troponin I < 0.012 ng/ml
--- NOTE | 2025-02-12 04:52 | ED.GENMED ---
History of Present Illness
General
Chief Complaint: Dizziness
Source: patient and previous hospital records (Previous hospitalization July of this year patient was treated for non-STEMI as well as upper GI bleed related to gastritis.)
Exam Limitations: none
Time Seen by Provider: 02/12/25 03:03
Nursing documentation reviewed up to this point in time: agreed with
History of Present Illness
History of Present Illness:
The patient is an 89-year-old female with a history of a mild heart attack in July and reported previous shoulder issues. She presented to the emergency department after experiencing an onset of profuse sweating while watching television,
accompanied by left-sided neck and shoulder pain. The sweating began Tuesday evening, and the associated left neck pain started a few hours before the sweating. She also reported tingling in the left arm and both hands. The patient denied any chest
pain or pressure. The episode lasted approximately 5 minutes. She mentioned occasional dizziness, particularly when reclining or looking downward, but this has not been a continuous issue until recently. She was last in the hospital in July for a
similar episode, which concluded with a diagnosis of a mild heart attack. At that time, she experienced jaw pain on the right side but reports no jaw pain currently.
She has history of essential thrombocytosis, PAF, had been maintained on Eliquis. During that hospitalization in July she was noted to have iron deficiency anemia, heme positive stools. Upper endoscopy revealed gastritis and Schatzki's ring. She
was started on PPI and after that hospitalization, Eliquis was discontinued by cardiology. She is maintained on low-dose aspirin daily.
She follows with shake splitter, Dr. Vargas. Frequent CBCs noting continued mild anemia but stable, platelet count more recently trending up and Hydrea was resumed 1 month ago.
She does note some chronic back pain, is quite slow to complete ADLs. She continues to live independently. Continues to drive but admits that it takes her several hours to complete tasks with frequent rest periods. This has been an ongoing issue
for many months, unchanged.
She notes she has an MRI of her lumbar spine scheduled for later this month with plan to follow-up with orthopedics with results thereafter.
Past History
Past History
ED Past Medical History: Arrthythmia (atrial fibrillation), Fibromyalgia, GERD, HTN, Hypercholesterolemia, [place] (Non-STEMI July 2024), Hypothyroidism, Psychiatric (major depression), Other (essential thrombocytosis, GI bleed, irritable bowel disease,
neuropathy, Anemia, Migraines, Essential tremors, Dizziness) and Other (spinal stenosis, left wrist fracture,)
ED Past Surgical History: Cholecystectomy (2015), Gynecological (bilateral tubal ligation, hysterectomy, ), Orthopedic (ankle surgery following fracture and 2016), Urological (bladder lift 2007) and Other (bilateral cataract extractions, cyst
removed from finger 2015)
Social History
Tobacco: Former smoker
Alcohol: None
Drug: None
Personal:
Living: alone
Employment: Retired
Family History
Family History: Other (reviewed and Noncontributory)
Phy Exam
Physical Exam
Physical Exam:
GENERAL: 89-year-old woman appears her stated age. Bright and alert, pleasant, appears in no acute distress.
EYE: pupils equal and reactive. Extraocular muscles intact. Anicteric
NECK: Supple, nontender, no meningismus, no significant adenopathy. No JVD. No bruit.
ENT: posterior pharynx is clear, oral mucosa is moist. TM clear b/l, nares patent.
CARDIAC: Regular rate and rhythm. no murmur.
LUNGS: Clear breath sounds bilaterally, no acute respiratory distress, no wheezes/rales/rhonchi
ABDOMEN: Soft, nondistended, without focal tenderness, no r/g, normoactive BS.
NEUROLOGICAL: Alert and oriented x3, no focal neuro deficits. Motor strength is 5/5 bilaterally. Gross sensation is intact.
SKIN: Warm and dry, normal color, skin intact. No rash.
MUSCULOSKELETAL: No C/C/E. peripheral pulses are full and equal b/l. No palpable tenderness.
PSYCH: Normal and appropriate interaction.
Course
Orders/Labs/Results
Orders:
Orders
02/11/25 22:09
Electrocardiogram (*1) Urgent
Reason for Study: Other
Other Reason for Exam: Respiratory Distress
Cardiac Monitoring- Treatment ONCE
EKG- Treatment ONCE
IV Insert/Care/Rem.- Treatment PRN
O2 Therapy [RESP] Urgent
Titrate/Wean O2 to maintain O2 sat greater than (%): 93
Special Instructions: TO MAINTAIN CONTINUOUS O2 SATS >/= 93%
Pulse Ox/cont/shift [RESP] Urgent
Quantity: 1
Special Instructions: continuous pulse ox
02/11/25 22:26
Complete Blood Count/With Diff Urgent
Comprehensive Metabolic Panel Urgent
NT-proBNP Urgent
Troponin I Urgent
02/12/25 00:15
CR Chest - 2 Views Urgent
Reason For Exam: respiratory distress
02/12/25 02:19
COVID-19 Antigen Urgent
Source: Nasal Swab
Influenza A+B Rapid Molecular Urgent
BRIAN Source: Nasal Swab
Specimen Description:
02/12/25 03:37
Electrocardiogram (*1) Urgent
Reason for Study: Chest Pain
EKG- Treatment ONCE
02/12/25 03:58
Troponin I Urgent
02/12/25 05:05
CT Chest Angio W/wo Iv Contras Urgent
Comment:
Reason For Exam: Acute left neck pain, left chest pain, diaphoresis
Abnormal Lab Results
02/11/25 02/11/25
22:25 22:26
WBC 13.0 H 10^3/uL
(4.8-10.8)
RBC 2.96 L 10^6/uL
(4.20-5.40)
Hgb 9.6 L g/dL
(12.0-16.0)
Hct 30.5 L %
(37.0-47.0)
MCV 103.0 H fL
(81.0-99.0)
MCH 32.4 H pg
(27.0-31.0)
MCHC 31.5 L g/dL
(33.0-37.0)
RDW 17.3 H %
(11.5-14.5)
Plt Count 602 H 10^3/uL
(130-400)
Abs Immat Gran (auto) 1.0 H 10^3/uL
(0-0.05)
Absolute Neuts (auto) 10.0 H 10^3/uL
(1.4-6.5)
Absolute Lymphs (auto) 0.8 L 10^3/uL
(1.2-3.4)
Absolute Monos (auto) 0.8 H 10^3/uL
(0.1-0.6)
Absolute Basos (auto) 0.3 H 10^3/uL
(0-0.2)
Immature Gran % 7.5 H %
(0-0.5)
Neutrophils % 76.9 H %
(42.2-75.2)
Lymphocytes % 6.4 L %
(20.5-51.1)
Sodium 133 L mmol/L
(135-145)
BUN 23 H mg/dl
(7-17)
Glucose 110 H mg/dl
(70-99)
POC Glucose 121 H mg/dl
(70-99)
02/11/25 22:26
02/11/25 22:26
Vital Signs
Initial and Last Documented VS:
Initial Vital Signs
Temp Pulse Resp BP Pulse Ox
97.7 F 69 20 159/66 96
02/11/25 22:02 02/11/25 22:02 02/11/25 22:02 02/11/25 22:02 02/11/25 22:02
Last Documented Vital Signs
Temp Pulse Resp BP Pulse Ox
97.7 F 64 9 162/60 96
02/11/25 22:02 02/12/25 06:30 02/12/25 06:30 02/12/25 06:00 02/12/25 04:54
MDM/Problems Addressed
Differential Diagnosis Includes:
The Differential Diagnosis includes, in no particular order and is not limited to:
1. Angina pectoris
2. Transient ischemic attack (TIA)
3. Vertebrobasilar insufficiency
4. Cervical radiculopathy
5. Acute myocardial infarction
6. Anxiety or panic attack
7. Hyperthyroidism
8. Vasovagal syncope
9. Peripheral neuropathy
10. Polymyalgia rheumatica
MDM/Problems Addressed:
Episode of profuse diaphoresis accompanied with neck pain, left shoulder pain, bilateral hand tingling. Resolved within 5 minutes. Similar brief episodes of diaphoresis over the past several days.
Symptoms do not appear to be exertional in nature but significant concern for ACS.
Thus far EKG is unremarkable and unchanged from previous. Labs are unremarkable, stable thrombocytosis, mild but stable anemia. Minimally elevated white blood cell count. Troponin is negative.
BNP is elevated at 4700. I have no old results to compare.
Chest x-ray is unremarkable, clear lung louis, unchanged from previous. Normal mediastinum. No definitive evidence of CHF. Patient does note some chronic fatigue/dyspnea with exertion, chronic and overall unchanged.
Will plan to repeat troponin and continue to observe.
Acute Exacerbation and/or Progression of Chronic Illness: HTN, Arrhythmia and Other (Thrombocytosis)
*Radiology
Radiology exam reviewed: radiology read reviewed (CTA is unremarkable. No PE, no thoracic aortic aneurysm. Atelectasis in the dependent lungs, no pneumonia nor pleural effusion. Borderline cardiomegaly, no pericardial effusion.)
*Pulse Oximetry
SaO2: 96
Oxygen Mode of Delivery: Room air
Patient hypoxic: no
*EKG
Interpreted by ED Provider?: Yes
Interpretation: normal
Comparison EKG: no changes
Rate: normal
Rhythm: sinus
[place]: normal axis
Interval: normal interval
QRS Pattern: normal QRS
Ischemia: no ischemia
*Plant Manager Interpretation
Rate: normal
Interpretation: normal
Rhythm: sinus
*Critical Care Note
Total Time (30-74mins, 75-104mins- exclusive of procedures): Not Applicable
Patient Management
Escalation/DeEscalation of care consider admission/obs:
Social determinants of health:
The patient requires several days to recover energy after activities like grocery shopping. Her son assists with some grocery duties on Sundays, indicating potential limited support during the rest of the week.
Update Note
Update Note:
06:40
Patient remains comfortable and asymptomatic.
Troponin x 2 are negative. EKG is unremarkable.
CTA of the chest is unremarkable. No PE, no thoracic dissection.
At this point unclear as to cause for episode of diaphoresis, left neck pain and shoulder pain. She may have suffered an element of acid reflux.
Will plan for discharge to home with recommendations for follow-up with her primary electrical design technician, Dr. Blood. Follow-up with PCP as well.
Return precautions discussed.
ED Attending Note
-
Portions of this chart may have been created with voice recognition software.� Occasional wrong word or��sound alike� substitutions may have occurred due to the inherent limitations of voice recognition software.
Discharge Plan
Departure
Patient Disposition: Home (Routine Discharge)
Date of Disposition: 02/12/25
Time of Disposition: 06:45
Patient with high blood pressure during this ER visit?: No
Condition: Good
Discharge Problem:
Episodic diaphoresis, Acute neck pain, self-limiting, Self-limiting neck pain, Dizziness
Instructions: Dizziness
Prescriptions:
No Action
cholecalciferol (vitamin D3) 1,000 UNITS tablet
1,000 units PO DAILY
cyanocobalamin (vitamin B-12) 500 MCG tablet, sublingual
1,000 mcg sublingual .MONWEDFRI
hydroxyurea 500 MG capsule
500 mg PO DAILY
levothyroxine 75 MCG tablet
75 mcg PO DAILY
lisinopril 20 MG tablet
20 mg PO DAILY Qty: 30 0RF
sertraline 25 mg Tablet
25 mg PO DAILY
Centrum Silver 0.4 mg-300 mcg- 250 mcg Tablet
1 tab PO DIRECTED
Rx Instructions:
3 x a week
isosorbide mononitrate 30 mg Tablet Extended Release 24 Hr
30 mg PO DAILY Qty: 30 0RF
amlodipine 5 mg Tablet
5 mg PO DAILY Qty: 30 0RF
aspirin 81 mg Tablet,Chewable
81 mg PO DAILY Qty: 30 0RF
atorvastatin 40 mg Tablet
40 mg PO QPM Qty: 30 0RF
metoprolol succinate 25 mg Tablet Extended Release 24 Hr
37.5 mg PO BID Qty: 60 0RF
pantoprazole [Protonix] 40 mg tablet,delayed release (DR/EC)
40 mg PO BID Qty: 60 0RF
gabapentin 300 mg Tablet Extended Release 24 Hr
300 mg PO QPM
Referrals:
Abel Brian MD [Family Provider, Internal Medicine] - Call in 1-3 days for appt
Pete Blood MD [Active, Cardiology] - Call in 1-3 days for appt
Interventions
Interventions:
*Risk Screen - Suicide Last Done: 02/11/25 22:02
*General Assessment Last Done: 02/11/25 22:02
*Neglect/Abuse Screening Last Done: 02/11/25 22:02
*ED- Fall Risk Assessment Last Done: 02/11/25 22:02
*ED COVID-19 Vaccine History Last Done: 02/11/25 22:02
ED- Cardiac Assessment Last Done: 02/12/25 02:09
ED- Neurological Assessment Last Done: 02/12/25 02:09
ED Swallowing Screen Last Done: 02/12/25 02:09
Discharge Date and Time
Print Language: [place]
[2025-02-12 05:00] VITALS: BP 149/61
[2025-02-12 06:00] VITALS: BP 162/60
== END 2025-02-12 07:24 | disposition home or self-care (01) ==
LOC: EMR 21:55
PROVIDERS: Emergency Medicine; EMERGENCY PHYSICIAN Emergency Medicine; FAMILY PHYSICIAN Internal Medicine Geriatric Medicine
DX: R61 Generalized hyperhidrosis (principal); M54.2 Cervicalgia; R42 Dizziness and giddiness; D64.9 Anemia, unspecified; D75.839 Thrombocytosis, unspecified; E03.9 Hypothyroidism, unspecified; E78.00 Pure hypercholesterolemia, unspecified; I48.0 Paroxysmal atrial fibrillation; Z79.82 Long term (current) use of aspirin; Z87.891 Personal history of nicotine dependence; Z11.52 Encounter for screening for COVID-19
CPT/HCPCS: 99285; 71046; 71275; 80053; 82962; 83880; 84484; 85025; 87502; 87811; 93005; Q9967

== ENCOUNTER → 2025-02-22 13:22 | Outpatient (REF) | payer OTHER, SELFPAY | LOC: PAVMRI 13:22 | PROVIDERS: ATTENDING PHYSICIAN Physician Assistant Medical; FAMILY PHYSICIAN Internal Medicine Geriatric Medicine | DX: M54.16 Radiculopathy, lumbar region (principal) | CPT/HCPCS: 72148 ==

== ENCOUNTER → 2025-03-07 13:22 | Outpatient (REF) | payer OTHER, SELFPAY ==
[2025-03-07 13:54] LABS: Hematocrit 30.5 % (37.0-47.0); Hemoglobin 9.2 g/dL (12.0-16.0); Mean Corp Hgb Conc. 30.2 g/dL (33.0-37.0); Mean Corpuscular Volume 105.5 fL (81.0-99.0); Platelet Count 611 10^3/uL (130-400); Red Cell Dist. Width 18.0 % (11.5-14.5)
[2025-03-07 15:26] LABS: Iron 56 ug/dl (37-170)
[2025-03-07 15:35] LABS: Total Iron Binding Capacity 266 ug/dl (265-497)
[2025-03-07 16:03] LABS: Ferritin 109.0 ng/ml (11.1-264.0)
== END ==
LOC: OIDL 13:22
PROVIDERS: Nurse Practitioner Primary Care; ATTENDING PHYSICIAN Internal Medicine Hematology & Oncology; FAMILY PHYSICIAN Internal Medicine Geriatric Medicine
DX: D47.3 Essential (hemorrhagic) thrombocythemia (principal); D64.81 Anemia due to antineoplastic chemotherapy; D50.9 Iron deficiency anemia, unspecified
CPT/HCPCS: 36415; 82728; 83540; 83550; 85025

== ENCOUNTER → 2025-04-04 13:24 | Outpatient (REF) | payer OTHER, SELFPAY ==
[2025-04-04 13:39] LABS: Hematocrit 30.4 % (37.0-47.0); Hemoglobin 9.0 g/dL (12.0-16.0); Mean Corp Hgb Conc. 29.6 g/dL (33.0-37.0); Mean Corpuscular Volume 102.7 fL (81.0-99.0); Platelet Count 663 10^3/uL (130-400); Red Cell Dist. Width 18.7 % (11.5-14.5)
[2025-04-04 14:27] LABS: Iron 51 ug/dl (37-170)
[2025-04-04 14:36] LABS: Total Iron Binding Capacity 271 ug/dl (265-497)
[2025-04-04 15:04] LABS: Ferritin 71.7 ng/ml (11.1-264.0)
== END ==
LOC: OIDL 13:24
PROVIDERS: ATTENDING PHYSICIAN Internal Medicine Hematology & Oncology; FAMILY PHYSICIAN Internal Medicine Geriatric Medicine
DX: E83.110 Hereditary hemochromatosis (principal); D47.3 Essential (hemorrhagic) thrombocythemia; D64.81 Anemia due to antineoplastic chemotherapy; D50.9 Iron deficiency anemia, unspecified
CPT/HCPCS: 36415; 82728; 83540; 83550; 85025

== ENCOUNTER → 2025-05-02 13:07 | Outpatient (REF) | payer OTHER, SELFPAY ==
[2025-05-02 13:21] LABS: Hematocrit 29.4 % (37.0-47.0); Hemoglobin 8.8 g/dL (12.0-16.0); Mean Corp Hgb Conc. 29.9 g/dL (33.0-37.0); Mean Corpuscular Volume 99.7 fL (81.0-99.0); Platelet Count 646 10^3/uL (130-400); Red Cell Dist. Width 19.4 % (11.5-14.5)
== END ==
LOC: OIDL 13:07
PROVIDERS: ATTENDING PHYSICIAN Internal Medicine Hematology & Oncology; FAMILY PHYSICIAN Internal Medicine Geriatric Medicine
DX: E83.110 Hereditary hemochromatosis (principal); D47.3 Essential (hemorrhagic) thrombocythemia; D64.81 Anemia due to antineoplastic chemotherapy; D50.9 Iron deficiency anemia, unspecified
CPT/HCPCS: 36415; 85025